=== PATIENT | female | born 1995 | race Caucasian/White ===

== ENCOUNTER 2020-11-02 09:53 | Outpatient (CLI) | payer OTHER, SELFPAY ==
--- NOTE | ~2020-11-02 | US_ITS ---
US pelvic complete w TV DATE: 11/02/2020 10:29 INDICATION: Menometrorrhagia. Irregular periods. Bloating, cramping. TECHNIQUE: Real-time imaging via transabdominal and transvaginal approaches COMPARISON: None FINDINGS: The uterus measures 8.0 cm height, 3.4 cm anteroposterior and 3.9 cm transverse dimension. The central endometrial echo complex measures approximately 4.3 mm anteroposterior dimension, normal. No ovarian or adnexal mass lesion or abnormal pelvic fluid collection is evident. There is vascular f low to both ovaries. IMPRESSION: No significant abnormality Reviewed, dictated and finalized at [facility]. Reviewed, dictated and finalized at [facility]. DING CLERK IMPRESSION: No significant abnormality
== END 2020-11-02 09:54 | disposition home or self-care (01) ==
PROVIDERS: PCP Physician Assistant; Visit Provider Physician Assistant
DX: N92.1 Excessive and frequent menstruation with irregular cycle (principal)
CPT/HCPCS: 76830; 76856

== ENCOUNTER 2021-01-26 11:46 | Emergency (ER) | payer OTHER, SELFPAY ==
[2021-01-26 12:05] VITALS: BP 131/88; PULSE 93; RESP 17; TEMP 37; O2SAT 99
--- NOTE | 2021-01-26 12:15 | ECG_ITS ---
Measurements Intervals [place] Rate: 78 P: 6 UT: 146 QRS: 78 QRSD: 81 T: 36 QT: 374 QTc: 428 Interpretive Statements SINUS RHYTHM NORMAL ECG Electronically Signed On 01-26-2021 12:54:24 CDT by Jan Burgos D.O.
[2021-01-26] MEDS: ONDANSETRON INJ 4 MG/2 ML VIAL IV PUSH (12:20)
[2021-01-26] MEDS: SODIUM CHLORIDE 0.9% IV 1,000 ML 999 ML IV CONT (12:20)
[2021-01-26 12:29] LABS: Add Urine Microscopic? YES; Appearance Urine Sl Cloudy (Clear); Bilirubin Urine Negative (Negative); Blood Urine Negative (Negative); Color Urine Yellow (Yellow); Glucose Urine UA Negative (Negative); Ketones Urine Negative (Negative); Leukocyte Esterase Ur 1+ (Negative); Nitrate Urine Negative (Negative); Protein Urine Negative (Negative); Specific Grav Ur >= 1.030 (1.010-1.020); Urobilinogen Urine 0.2 mg/dL (0.2-1.0); pH Urine 5.5 (5.0-8.0)
[2021-01-26 12:36] LABS: RBC Urine 0-2 /hpf (0-2); Squamous Epithelial Cell Urine Moderate /hpf (Few)
[2021-01-26 12:36] LABS: Basophils Absolute Auto 0.02 K/mm3 (0.00-0.10); Basophils Percent Auto 0.3 % (0.0-1.0); Eosinophils Absolute Auto 0.06 K/mm3 (0.02-0.50); Eosinophils Percent Auto 0.9 % (1.0-6.0); Hematocrit 35.2 % (35.0-49.0); Immature Granulocyte Absolute 0.02 K/mm3 (0.00-0.00); Immature Granulocyte Percent A 0.3 % (0.0-0.0); Lymphocytes Absolute Auto 1.44 K/mm3 (1.10-4.50); Lymphocytes Percent Auto 20.9 % (18.0-42.0); Mean Corpuscular HGB Conc 34.1 g/dL (32.0-36.0); Mean Corpuscular Hemoglobin 29.7 pg (27.0-31.0); Mean Corpuscular Volume 87.1 fL (78.0-102.0); Mean Platelet Volume 11.4 fl (9.2-11.8); Monocytes Absolute Auto 0.46 K/mm3 (0.10-0.90); Monocytes Percent Auto 6.7 % (2.0-11.0); Neutrophils Absolute Auto 4.9 K/mm3 (1.7-7.2); Neutrophils Percent Auto 70.9 % (50.0-70.0); Platelet Count Result 186 K/mm3 (150-420); Red Blood Count 4.04 M/mm3 (4.20-5.40); Red Cell Distribution Width 11.9 % (11.6-14.4); White Blood Count 6.9 K/mm3 (4.8-10.8)
[2021-01-26 12:37] LABS: Bacteria Urine 1+ /hpf
--- NOTE | 2021-01-26 12:48 | ED.NAVMDI ---
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 Patient here presents with nausea, currently no dysuria no flank pain no hematuria no fever chills no excessive shortness of breath no chest pain or chest tightness. MD elicited complaint: nausea Onset (ago): week(s) Description of vomiting: watery Associated nausea: Yes Associated abdominal pain: No Quality: cramping Exacerbating factors: none Relieving factors: none Related Data Home Medications Medication Instructions Recorded Confirmed ondansetron HCl 4 mg PO DAILY PRN 01/26/21 01/26/21 vit [id number] 1 tablet PO DAILY 01/26/21 01/26/21 [Classic ] Allergies Allergy/AdvReac Type Severity Reaction Status Date / Time levofloxacin [From Levaquin] Allergy Hives Verified 01/26/21 12:14 Penicillins Allergy Hives Verified 01/26/21 12:14 Review of Systems Review of Systems: All systems reviewed & are unremarkable except as noted in HPI and below PMFSH Past Medical History Medical History Exam Const: General: no acute distress and alert Orientation/consciousness: patient oriented x3 HENMT: Head: normal to inspection Eyes: Pupils: Equal, round and reactive pupils present EOM: EOMs intact bilaterally Direct Ophthalmoscopy: no photophobia Neck: Neck: normal visual inspection, no lymphadenopathy and no meningeal signs Chest: Chest palpation & inspection: normal inspection of the chest Resp: Effort & Inspection: normal respiratory effort Auscultation: clear to auscultation bilaterally GI: GI Palp: Yes Soft to palpation : General: Yes no CVA tenderness Back/Spine/Pelvis: Back: no CVA tenderness Skin: General skin exam: normal color Rashes: no rashes Neuro: General: patient oriented x3, moves all extremities and no meningeal signs Psych: Mental Status: mental status grossly normal Course Course Emergency Course: patient received IV fluids and IV Zofran is more comfortable, I reviewed lab findings including EKG and urinalysis, and urine showed a urinary tract infection advised we sending an antibiotic to her pharmacy. Vital Signs Vital signs: Vital Signs Temperature 37.0 C 01/26/21 12:05 Pulse Rate 93 01/26/21 12:05 Respiratory Rate 17 01/26/21 12:05 Blood Pressure 131/88 01/26/21 12:05 Pulse Oximetry 99 01/26/21 12:05 Temperature 37.0 C 01/26/21 12:05 Pulse Rate 93 01/26/21 12:05 Respiratory Rate 17 01/26/21 12:05 Blood Pressure 131/88 01/26/21 12:05 Pulse Oximetry 99 01/26/21 12:05 MDM - Nausea/Vomiting/Diarrhea Lab Data Result diagrams: 01/26/21 12:30 01/26/21 12:30 Labs: Lab Results 01/26/21 01/26/21 01/26/21 Range/Units 12:15 12:30 12:30 WBC 6.9 (4.8-10.8) K/mm3 RBC 4.04 L (4.20-5.40) M/mm3 Hgb 12.0 (12.0-15.0) g/dL Hct 35.2 (35.0-49.0) % MCV 87.1 (78.0-102.0) fL MCH 29.7 (27.0-31.0) pg MCHC 34.1 (32.0-36.0) g/dL RDW 11.9 (11.6-14.4) % Plt Count 186 (150-420) K/mm3 MPV 11.4 (9.2-11.8) fl Immature Gran % (Auto) 0.3 H (0.0-0.0) % Neut % (Auto) 70.9 H (50.0-70.0) % Lymph % (Auto) 20.9 (18.0-42.0) % [place] % (Auto) 6.7 (2.0-11.0) % Eos % (Auto) 0.9 L (1.0-6.0) % Baso % (Auto) 0.3 (0.0-1.0) % Lymph # (Auto) 1.44 (1.10-4.50) K/mm3 [place] # (Auto) 0.46 (0.10-0.90) K/mm3 Eos # (Auto) 0.06 (0.02-0.50) K/mm3 Baso # (Auto) 0.02 (0.00-0
[2021-01-26 12:51] LABS: Alanine Aminotransferase 25 U/L (14-59); Albumin Level 3.2 g/dL (3.4-5.0); Alkaline Phosphatase 42 U/L (46-116); Anion Gap 9 mmol/L (8-16); Aspartate Amino Transferase < 10 U/L (15-37); Bilirubin,Total 0.5 mg/dL (0.00-1.00); Blood Urea Nitrogen 10 mg/dL (7-18); Calcium 8.6 mg/dL (8.5-10.1); Carbon Dioxide 25 mmol/L (21-32); Chloride 104 mmol/L (98-108); Estimated Glomerular Filt Rate > 60; Glucose 97 mg/dL (70-99); Osmolality Calculated 285 mOsm/kg (285-295); Potassium 3.4 mmol/L (3.5-5.1); Sodium 138 mmol/L (136-145); Total Protein 6.2 g/dL (6.4-8.2)
[2021-01-26 13:13] VITALS: RESP 16
== END 2021-01-26 13:15 | disposition home or self-care (01) ==
PROVIDERS: Emergency Provider Emergency Medicine; PCP Physician Assistant
DX: Z3A.12 12 weeks gestation of pregnancy (principal); N39.0 Urinary tract infection, site not specified; R11.2 Nausea with vomiting, unspecified
CPT/HCPCS: 36415; 80053; 81001; 85025; 93005; 96361; 96374; 99283; 99284; J2405; J7030

== ENCOUNTER 2021-01-31 11:27 | Emergency (ER) | payer SELFPAY ==
--- NOTE | 2021-01-31 12:06 | ED.NAVMDI ---
HPI - Nausea/Vomiting/Diarrhea General Chief complaint: Nausea/Vomiting/Diarrhea Stated complaint: vomiting Source: patient and RN notes reviewed Mode of arrival: ambulatory Limitations: no limitations History of Present Illness MD elicited complaint: nausea and vomiting Pertinent past history: other (12 wks ) Onset (ago): day(s) (3) Description of vomiting: food contents Associated nausea: Yes Associated abdominal pain: No Severity: moderate Exacerbating factors: eating Relieving factors: none Associated symptoms: weakness Treatment prior to arrival: none ( Reglan and Zofran) Related Data Home Medications Medication Instructions Recorded Confirmed ondansetron HCl 4 mg PO DAILY PRN 01/26/21 01/31/21 vit [id number] 1 tablet PO DAILY 01/26/21 01/31/21 [Classic ] metoclopramide HCl [Reglan] 10 mg PO Q6H PRN 01/31/21 01/31/21 Allergies Allergy/AdvReac Type Severity Reaction Status Date / Time levofloxacin [From Levaquin] Allergy Hives Verified 01/31/21 12:39 Penicillins Allergy Hives Verified 01/31/21 12:39 Review of Systems Review of Systems: All systems reviewed & are unremarkable except as noted in HPI and below PMFSH Past Medical History Medical History (Updated 01/31/21 @ 13:46 by Servando Garcia MD) Surgical History Surgical History (Updated 01/31/21 @ 12:39 by Servando Garcia MD) Hx of cholecystectomy Hx of tonsillectomy Social History Social History (Updated 01/31/21 @ 12:39 by Servando Garcia MD) Smoking status: Never smoker Alcohol intake: current Alcohol use details: occasional when not Substance use: never Gender identity (if verbalized by the patient): Female Exam Const: General: healthy appearing and no acute distress Nutritional Appearance: well nourished Orientation/consciousness: patient oriented x3 Other: female nurse in room during examination. HENMT: Head: normal to inspection Ears: external ears normal Eyes: Cornea: corneas normal Pupils: Equal, round and reactive pupils present EOM: EOMs intact bilaterally Neck: Neck: normal visual inspection Resp: Effort & Inspection: normal respiratory effort Auscultation: clear to auscultation bilaterally Cardio: Rate: regular rate Rhythm: regular rhythm GI: GI Palp: Yes Soft to palpation and No Tenderness to palpation present (GI) Auscultation: normal bowel sounds Back/Spine/Pelvis: Cervical Spine: cervical ROM normal Thoracic/Lumbar Spine: thoraco-lumbar ROM normal Skin: General skin exam: normal color Rashes: no rashes Wounds: no wounds Neuro: General: patient oriented x3, moves all extremities, no meningeal signs and no focal motor deficits Speech: normal speech Gait exam (Neuro): Normal gait present Extrem: General: normal to inspection and no clubbing, cyanosis or edema Psych: Appearance: grossly normal and well kempt Mental Status: mental status grossly normal Affect: normal affect Attitude: cooperative Thought content: Yes Normal thought content present Course Vital Signs Vital signs: Vital Signs Temperature 36.8 C 01/31/21 12:30 Pulse Rate 81 01/31/21 12:30 Respiratory Rate 20 01/31/21 12:30 Blood Pressure 131/81 01/31/21 12:30 Pulse Oximetry 100 01/31/21 12:30 Temperature 36.7 C 01/31/21 14:11 Pulse Rate 86 01/31/21 14:11 Respiratory Rate 20 01/31/21 14:11 Blood Pressure 114/71 01/31/21 14:11 Pulse Oximetry 98 01/31/21 14:11 MDM - Nausea/Vomiting/Diarrhea Medical Records Attestation: I reviewed the patient's medical records. Lab Data Attestation: I reviewed the patient's lab results. Result diagrams: 01/31/21 12:41 01/31/21 12:41 Labs: Lab Results 01/31/21 01/31/21 01/31/21 Range/Units 12:07 12:41 12:41 WBC 6.0 (4.8-10.8) K/mm3 RBC 4.11 L (4.20-5.40) M/mm3 Hgb 12.2 (12.0-15.0) g/dL Hct 35.8 (35.0-49.0) % MCV 87.1 (78.0-102
[2021-01-31] MEDS: LACTATED RINGERS 1,000 ML 999 ML IV CONT (12:15)
[2021-01-31 12:30] VITALS: BP 131/81; PULSE 81; RESP 20; TEMP 36.8; O2SAT 100
[2021-01-31 12:31] LABS: Bilirubin Urine Negative (Negative); Blood Urine Negative (Negative); Color Urine Yellow (Yellow); Glucose Urine UA Negative (Negative); Ketones Urine Negative (Negative); Leukocyte Esterase Ur Negative LEU/UL (Negative); Nitrate Urine Negative (Negative); Protein Urine Negative (Negative); Urobilinogen Urine 0.2 mg/dL (0.2-1.0); pH Urine 7.5 (5.0-8.0)
[2021-01-31 12:35] LABS: Add Urine Microscopic? NO; Appearance Urine Clear (Clear)
[2021-01-31 12:47] LABS: Basophils Absolute Auto 0.02 K/mm3 (0.00-0.10); Basophils Percent Auto 0.3 % (0.0-1.0); Eosinophils Absolute Auto 0.04 K/mm3 (0.02-0.50); Eosinophils Percent Auto 0.7 % (1.0-6.0); Hematocrit 35.8 % (35.0-49.0); Hemoglobin 12.2 g/dL (12.0-15.0); Immature Granulocyte Absolute 0.02 K/mm3 (0.00-0.00); Immature Granulocyte Percent A 0.3 % (0.0-0.0); Lymphocytes Absolute Auto 1.35 K/mm3 (1.10-4.50); Lymphocytes Percent Auto 22.7 % (18.0-42.0); Mean Corpuscular HGB Conc 34.1 g/dL (32.0-36.0); Mean Corpuscular Hemoglobin 29.7 pg (27.0-31.0); Mean Corpuscular Volume 87.1 fL (78.0-102.0); Mean Platelet Volume 11.3 fl (9.2-11.8); Monocytes Absolute Auto 0.44 K/mm3 (0.10-0.90); Monocytes Percent Auto 7.4 % (2.0-11.0); Neutrophils Absolute Auto 4.1 K/mm3 (1.7-7.2); Neutrophils Percent Auto 68.6 % (50.0-70.0); Platelet Count Result 168 K/mm3 (150-420); Red Blood Count 4.11 M/mm3 (4.20-5.40)
[2021-01-31 12:53] LABS: Anion Gap 9 mmol/L (8-16); Blood Urea Nitrogen 9 mg/dL (7-18); Calcium 8.6 mg/dL (8.5-10.1); Carbon Dioxide 25 mmol/L (21-32); Chloride 102 mmol/L (98-108); Estimated CRCL calculation 150 ml/min; Estimated Glomerular Filt Rate > 60; Glucose 90 mg/dL (70-99); Osmolality Calculated 280 mOsm/kg (285-295); Potassium 3.4 mmol/L (3.5-5.1); Sodium 136 mmol/L (136-145)
[2021-01-31] MEDS: PROMETHAZINE HCL 25 MG/ML AMPUL IM (14:00)
[2021-01-31 14:11] VITALS: BP 114/71; PULSE 86; RESP 20; TEMP 36.7; O2SAT 98
== END 2021-01-31 14:25 | disposition home or self-care (01) ==
PROVIDERS: Emergency Provider Emergency Medicine; PCP Physician Assistant
DX: O21.0 Mild hyperemesis gravidarum (principal); Z3A.12 12 weeks gestation of pregnancy
CPT/HCPCS: 36415; 80048; 81003; 85025; 96360; 96372; 99283; J2550; J7120

== ENCOUNTER 2021-05-04 12:36 | Outpatient (RCR) | payer SELFPAY ==
[2021-05-04 14:22] VITALS: BP 121/73; PULSE 97
== END 2021-08-02 23:59 | disposition home or self-care (01) ==
LOC: ANHOBOP 12:36
PROVIDERS: PCP Physician Assistant; Visit Provider Obstetrics & Gynecology
DX: O36.8120 Decreased fetal movements, second trimester, not applicable or unspecified (principal); Z3A.25 25 weeks gestation of pregnancy
CPT/HCPCS: 59025

== ENCOUNTER 2021-06-15 11:56 | Outpatient (RCR) | payer OTHER, SELFPAY ==
[2021-05-24 00:10] VITALS: BP 122/79; PULSE 101
[2021-05-24 00:16] VITALS: BP 122/73; PULSE 101
[2021-05-24 01:33] VITALS: BP 122/79; PULSE 101
[2021-06-15 12:40] VITALS: PULSE 111
== END 2021-08-21 09:27 | disposition home or self-care (01) ==
LOC: ANHOBOP 11:56
PROVIDERS: PCP Physician Assistant; Visit Provider Obstetrics & Gynecology
DX: O36.8130 Decreased fetal movements, third trimester, not applicable or unspecified (principal); Z3A.28 28 weeks gestation of pregnancy; O46.93 Antepartum hemorrhage, unspecified, third trimester; Z3A.31 31 weeks gestation of pregnancy
CPT/HCPCS: 59025

== ENCOUNTER 2021-06-30 22:55 | Observation (INO) | payer OTHER, SELFPAY ==
[2021-06-30 23:10] VITALS: BMI 34.8
--- NOTE | 2021-06-30 23:11 | OBADM ---
This patient, Amy Yarbrough, admitted to the OB room [facility] for observation. Patient/family oriented to hospital policies and general routines including ID bracelet, bed and alarms, visiting hours, pain management, procedures, bathroom and other care routines, personal items, smoking policy, room service/diet, and visiting hours. Patient/Family are encouraged to report perceived risks to care and to ask questions if they do not understand what they are told or what they should do.
[2021-06-30 23:19] VITALS: BP 136/81; PULSE 111; TEMP 36.8
[2021-06-30 23:30] VITALS: BP 135/86; PULSE 103
[2021-06-30 23:46] VITALS: BP 96/80; PULSE 102
[2021-07-01] VITALS: BP 124/87; PULSE 92
--- NOTE | 2021-07-04 08:05 | PM.OBTRLD ---
OB - Triage/Final Diagnosis Visit Information Date of evaluation: 06/30/21 Reason for evaluation: decreased movement Comments/Additional reasons for admission: I have assessed the risk for this patient, Amy Castillo Zenon, and determined that she would benefit from observation care.
== END 2021-07-01 00:15 | disposition home or self-care (01) ==
PROVIDERS: Admitting Provider Student in an Organized Health Care Education/Training Program; PCP Physician Assistant; Visit Provider Student in an Organized Health Care Education/Training Program
DX: O36.8130 Decreased fetal movements, third trimester, not applicable or unspecified (principal); Z3A.33 33 weeks gestation of pregnancy
CPT/HCPCS: G0378; G0379

== ENCOUNTER 2021-07-10 17:26 | Outpatient (CLI) | payer OTHER, SELFPAY ==
[2021-07-10 17:44] VITALS: BP 120/79; PULSE 104
[2021-07-10 18:15] LABS: Alanine Aminotransferase 16 U/L (4-35); Albumin Level 3.9 g/dL (3.5-5.1); Alkaline Phosphatase 119 U/L (38-126); Anion Gap 8 mmol/L (8-16); Aspartate Amino Transferase 16 U/L (14-36); Basophils Percent Auto 0.2 % (0.2-1.2); Bilirubin,Total 0.5 mg/dL (0.2-1.3); Blood Urea Nitrogen 7 mg/dL (7-17); Calcium 9.3 mg/dL (8.4-10.2); Carbon Dioxide 19 mmol/L (22-30); Chloride 109 mmol/L (98-107); Eosinophils Percent Auto 0.3 % (0-4.4); Estimated Glomerular Filt Rate > 60; Glucose 92 mg/dL (65-110); Hematocrit 35.3 % (37.0-47.0); Hemoglobin 11.9 g/dL (12.0-15.0); Immature Granulocyte Absolute 0.05 K/mm3 (0.00-0.031); Immature Granulocyte Percent A 0.5 % (0-0.5); Lymphocytes Percent Auto 13.3 % (18.3-44.2); Mean Corpuscular HGB Conc 33.7 g/dl (32-36); Mean Corpuscular Hemoglobin 29.9 pg (26-34); Mean Corpuscular Volume 88.7 fl (80-100); Mean Platelet Volume 11.9 fl (7.4-10.4); Monocytes Absolute Auto 0.6 K/mm3 (0.1-0.6); Monocytes Percent Auto 6.5 % (2.6-8.5); Neutrophils Absolute Auto 7.8 K/mm3 (1.3-6.7); Neutrophils Percent Auto 79.2 % (45.5-73.1); Platelet Count Result 181 k/mm3 (150-375); Potassium 3.9 mmol/L (3.4-5.0); Red Blood Count 3.98 M/mm3 (4.2-5.4); Red Cell Distribution Width 13.1 % (11.5-14.5); Sodium 136 mmol/L (137-145); Uric Acid 4.6 mg/dL (2.5-7.5); White Blood Count 9.8 K/mm3 (4.5-10.0)
[2021-07-10 18:32] VITALS: BP 124/86; PULSE 100
[2021-07-10 18:45] VITALS: BP 117/100; PULSE 85
[2021-07-10 18:53] VITALS: BP 130/85; PULSE 99
[2021-07-10 19:01] VITALS: BP 120/75; PULSE 100
== END 2021-07-10 19:11 | disposition home or self-care (01) ==
LOC: ANHOBOP 17:37 → ANHLDR 17:37
PROVIDERS: PCP Physician Assistant; Visit Provider Obstetrics & Gynecology
DX: O13.9 Gestational [pregnancy-induced] hypertension without significant proteinuria, unspecified trimester (principal); Z3A.00 Weeks of gestation of pregnancy not specified
CPT/HCPCS: 36415; 59025; 80053; 84550; 85025; 99199

== ENCOUNTER 2021-07-12 20:29 | Observation (INO) | payer OTHER, SELFPAY ==
[2021-07-12 20:49] VITALS: BP 132/80; PULSE 115
[2021-07-12 20:57] VITALS: RESP 18; TEMP 36.8
[2021-07-12 21:00] VITALS: BP 143/88; PULSE 112
[2021-07-12 21:08] VITALS: BMI 37.1
[2021-07-12 21:48] LABS: Add Urine Microscopic? YES; Appearance Urine Clear (Clear); Bacteria Urine Trace /hpf; Bilirubin Urine Negative (Negative); Blood Urine Negative (Negative); Calcium Oxalate Crystals Urine Present /hpf; Color Urine Yellow (Yellow); Glucose Urine UA Negative (Negative); Ketones Urine Negative (Negative); Leukocyte Esterase Ur 1+ LEU/UL (Negative); Mucus Urine Few /lpf; Nitrate Urine Negative (Negative); Protein Urine Negative (Negative); Squamous Epithelial Cell Urine Many /hpf (Few); Urobilinogen Urine Negative mg/dL (<2.0)
--- NOTE | 2021-07-21 10:04 | PM.OBTRLD ---
OB - Triage/Final Diagnosis Visit Information Reason for evaluation: threatened labor Comments/Additional reasons for admission: I have assessed the risk for this patient, Amy Yarbrough, and determined that she would benefit from observation care. Evaluation Laboratory results: Laboratory Tests 07/12/21 21:30 Urine Color Yellow Urine Appearance Clear Urine pH 5.0 Ur Specific [place] 1.020 Urine Protein Negative Urine Glucose (UA) Negative Urine Ketones Negative Ur Blood (Man) Negative Urine Nitrate Negative Urine Bilirubin Negative Urine Urobilinogen Negative Leukocyte Esterase Rfl 1+ H Urine RBC 11-20 H Urine WBC 10-15 H Ur Squamous Epith Cells Many H Calcium Oxalate Crystal Present Urine Bacteria Trace Urine Mucus Few H
== END 2021-07-12 21:59 | disposition home or self-care (01) ==
PROVIDERS: Admitting Provider Obstetrics & Gynecology; PCP Physician Assistant; Visit Provider Obstetrics & Gynecology
DX: O47.03 False labor before 37 completed weeks of gestation, third trimester (principal); Z3A.35 35 weeks gestation of pregnancy
CPT/HCPCS: 59025; 81001; 84112; 87086; G0378; G0379

== ENCOUNTER 2021-07-15 12:58 | Outpatient (CLI) | payer OTHER, SELFPAY ==
[2021-07-15 13:09] LABS: Collection Time Urine 24 HOURS
[2021-07-15 13:30] LABS: Total Volume 24 Hour Urine 1750 ml
[2021-07-15 13:31] LABS: Patient Weight 135 Lbs
[2021-07-15 14:21] LABS: Creatinine Clearance Urine 265.6 ml/min (75-125); Creatinine Urine 84.3 mg/dL
[2021-07-15 15:27] LABS: Total Protein Urine 24 Hr 87 mg/24hr (28-141); Total Protein Urine Random < 5 mg/dL
== END 2021-07-15 12:59 | disposition home or self-care (01) ==
PROVIDERS: PCP Physician Assistant; Visit Provider Obstetrics & Gynecology
DX: R03.0 Elevated blood-pressure reading, without diagnosis of hypertension (principal)
CPT/HCPCS: 81050; 82575; 84156

== ENCOUNTER 2021-07-23 17:07 | Outpatient (CLI) | payer OTHER, SELFPAY ==
[2021-07-23] VITALS (19 sets, daily range): BP systolic 126–141; BP diastolic 76–95; PULSE 94–117
[2021-07-23 17:55] LABS: Basophils Percent Auto 0.2 % (0.2-1.2); Eosinophils Percent Auto 0.5 % (0-4.4); Hemoglobin 11.8 g/dL (12.0-15.0); Immature Granulocyte Absolute 0.04 K/mm3 (0.00-0.031); Immature Granulocyte Percent A 0.5 % (0-0.5); Lymphocytes Absolute Auto 1.25 K/mm3 (0.9-3.2); Lymphocytes Percent Auto 14.5 % (18.3-44.2); Mean Corpuscular HGB Conc 33.7 g/dl (32-36); Mean Corpuscular Volume 89.1 fl (80-100); Monocytes Absolute Auto 0.7 K/mm3 (0.1-0.6); Monocytes Percent Auto 8.5 % (2.6-8.5); Neutrophils Absolute Auto 6.5 K/mm3 (1.3-6.7); Neutrophils Percent Auto 75.8 % (45.5-73.1); Platelet Count Result 177 k/mm3 (150-375); Red Blood Count 3.93 M/mm3 (4.2-5.4); Red Cell Distribution Width 13.1 % (11.5-14.5); White Blood Count 8.6 K/mm3 (4.5-10.0)
[2021-07-23 18:00] LABS: Add Urine Microscopic? YES; Appearance Urine Clear (Clear); Bacteria Urine Trace /hpf; Bilirubin Urine Negative (Negative); Blood Urine Negative (Negative); Color Urine Yellow (Yellow); Glucose Urine UA 1+ mg/dL (Negative); Ketones Urine Negative (Negative); Leukocyte Esterase Ur 1+ LEU/UL (NEGATIVE); Mucus Urine Rare /lpf; Nitrate Urine Negative (Negative); Protein Urine 1+ mg/dL (Negative); Specific Grav Ur 1.017 (1.001-1.035); Squamous Epithelial Cell Urine Moderate /hpf (Few); Urobilinogen Urine Negative mg/dL (<2.0)
[2021-07-23 18:04] LABS: Alanine Aminotransferase 13 U/L (4-35); Albumin Level 3.7 g/dL (3.5-5.1); Alkaline Phosphatase 121 U/L (38-126); Anion Gap 10 mmol/L (8-16); Aspartate Amino Transferase 15 U/L (14-36); Bilirubin,Total 0.5 mg/dL (0.2-1.3); Blood Urea Nitrogen 7 mg/dL (7-17); Calcium 8.6 mg/dL (8.4-10.2); Carbon Dioxide 19 mmol/L (22-30); Chloride 109 mmol/L (98-107); Estimated Glomerular Filt Rate > 60; Glucose 108 mg/dL (65-110); Potassium 3.9 mmol/L (3.4-5.0); Sodium 138 mmol/L (137-145); Uric Acid 4.5 mg/dL (2.5-7.5)
[2021-07-23 18:22] LABS: Creatinine Urine 105.5 mg/dL; Total Protein Urine Random 6 mg/dL; Ur Ttl Prot Creatinine Ratio 0.06 mg/mg (0-0.20)
--- NOTE | 2021-07-23 23:54 | PC.NURSE ---
1904- paged Dr. Collier- 1913- Dr. Collier responded to page. informed of pt admission. pt came in c/o HORTON, DFM, and elevated BP's at home. BP's reviewed. HORTON-rated 6/10 on pain scale. FHT reveiwed. orders received for fiorocet 2 tabs x1 and have the pt eat dinner. will continue to monitor and call if questions/concerns.
--- NOTE | 2021-07-24 00:09 | PC.NURSE ---
2100- pt states that her headache is no better after fiorocet. pt was able to eat dinner.
--- NOTE | 2021-07-24 00:10 | PC.NURSE ---
2132- pt states that her headache pain is 7/10. c/o pain behind both eyes. pt with hx of migraines. uses icy hot at home.
--- NOTE | 2021-07-24 00:11 | PC.NURSE ---
2134- Dr. Collier paged. 2139- Dr. Collier responded to page.- updated on pt status. pt now c/o 7/10 pain more behind her eyes with pressure in her head. she states that the fiorocet hasn't helped at all. pt is laughing and smiling and talking to mom and playing on phone. pt with a hx of migraines. FHT reviewed. no concerns. ok to d/c home with instructions on when to return to L&D. recommend tylenol 1000mg every 6 hours for headache. alternate heat and ice. pt may use icy hot if needed. pt to keep appt in office.
== END 2021-07-23 22:01 | disposition home or self-care (01) ==
LOC: ANHOBOP 17:18 → ANHOBPP 17:19
PROVIDERS: PCP Physician Assistant; Visit Provider Obstetrics & Gynecology
DX: O13.9 Gestational [pregnancy-induced] hypertension without significant proteinuria, unspecified trimester (principal); Z3A.00 Weeks of gestation of pregnancy not specified
CPT/HCPCS: 36415; 80053; 81001; 82570; 84156; 84550; 85025; 87086; 87088; 99199; A9270

== ENCOUNTER 2021-07-25 15:52 | Inpatient (IN) | payer OTHER, MEDICAID, SELFPAY ==
[2021-07-25] VITALS (14 sets, daily range): BP systolic 114–150; BP diastolic 71–94; PULSE 104–118; RESP 18; TEMP 36.9; BMI 37.2
--- NOTE | 2021-07-25 16:51 | LDADM ---
This patient, Amy Yarbrough, was admitted to Labor/Delivery/Recovery 109 on 07/25/21 at 15:52. Plans for labor, pain management and were discussed with patient. Patient is oriented to hospital policies and general routines including ID bracelet, bed and alarms, visiting hours, pain management, procedures, bathroom and other care routines, personal items, smoking policy, room service/diet and guest tray routines, infant security routines, call light and visiting hours. Patient is encouraged to report perceived risks to care and to ask questions if she does not understand what she is told or what she should do. See OBIX for further documentation.
[2021-07-25 17:35] LABS: Basophils Percent Auto 0.2 % (0.2-1.2); Eosinophils Percent Auto 0.4 % (0-4.4); Hematocrit 36.5 % (37.0-47.0); Hemoglobin 12.4 g/dL (12.0-15.0); Immature Granulocyte Absolute 0.05 K/mm3 (0.00-0.031); Immature Granulocyte Percent A 0.5 % (0-0.5); Lymphocytes Absolute Auto 1.58 K/mm3 (0.9-3.2); Lymphocytes Percent Auto 15.4 % (18.3-44.2); Mean Corpuscular Hemoglobin 29.5 pg (26-34); Mean Corpuscular Volume 86.9 fl (80-100); Mean Platelet Volume 12.2 fl (7.4-10.4); Monocytes Absolute Auto 0.7 K/mm3 (0.1-0.6); Monocytes Percent Auto 7.2 % (2.6-8.5); Neutrophils Absolute Auto 7.8 K/mm3 (1.3-6.7); Neutrophils Percent Auto 76.3 % (45.5-73.1); Platelet Count Result 205 k/mm3 (150-375); Red Cell Distribution Width 13.1 % (11.5-14.5); White Blood Count 10.2 K/mm3 (4.5-10.0)
[2021-07-25 17:57] LABS: Alanine Aminotransferase 16 U/L (4-35); Albumin Level 3.9 g/dL (3.5-5.1); Alkaline Phosphatase 144 U/L (38-126); Anion Gap 10 mmol/L (8-16); Aspartate Amino Transferase 19 U/L (14-36); Bilirubin,Total 0.7 mg/dL (0.2-1.3); Blood Urea Nitrogen 6 mg/dL (7-17); Calcium 9.6 mg/dL (8.4-10.2); Carbon Dioxide 22 mmol/L (22-30); Chloride 105 mmol/L (98-107); Estimated CRCL calculation 193 ml/min; Estimated Glomerular Filt Rate > 60; Glucose 85 mg/dL (65-110); Potassium 4.4 mmol/L (3.4-5.0); Sodium 137 mmol/L (137-145); Uric Acid 4.8 mg/dL (2.5-7.5)
[2021-07-25] MEDS: DINOPROSTONE 10 MG VAG INSERT VAGINAL (20:03)
[2021-07-25] MEDS: LACTATED RINGERS 1,000 ML 125 ML IV CONT (20:09)
[2021-07-25] MEDS: ceFAZolin 2 GM/D5W 50 ML 2 GM/50 ML BAG IVPB (20:09)
[2021-07-25] MEDS: ACETAMINOPHEN 500 MG TABLET 1000 MG PO (20:30)
[2021-07-26] VITALS (152 sets, daily range): BP systolic 102–163; BP diastolic 59–100; PULSE 77–171; RESP 18; TEMP 36.3–37.6; O2SAT 95–100
[2021-07-26] MEDS: fentaNYL CITRATE INJ (*CRX) 100 MCG/2 ML VIAL 50 MCG IV PUSH ×4 (00:15→10:52)
--- NOTE | 2021-07-26 04:32 | WPDANESEPP ---
Anes - Eval Pre Procedure Procedure: labor epidural Date/Time: 07/26/21 04:32 Surgeon: jose luis Pre Op Diagnosis: PIH Labs/ IOL? Patient Data Age: 26 Gender: F Height: 1.63 m Weight: 98.3 kg Last Vital Signs Temp 36.8 C 07/26/21 01:19 Pulse 110 H 07/26/21 04:01 Resp 18 07/25/21 22:09 BP 144/91 H 07/26/21 04:01 Allergies Allergy/AdvReac Type Severity Reaction Status Date / Time levofloxacin [From Levaquin] Allergy Hives Verified 07/25/21 16:44 Penicillins Allergy Hives Verified 07/25/21 16:44 hydrocodone AdvReac Dizziness Verified 07/25/21 16:44 Home Medications Medication Instructions Recorded Confirmed Type Classic 1 tablet PO DAILY 01/26/21 07/25/21 History ondansetron HCl 4 mg PO DAILY PRN 01/26/21 07/25/21 History sertraline [Zoloft] 25 mg PO DAILY 07/17/21 07/25/21 History Laboratory Tests 07/25/21 07/25/21 07/25/21 17:25 17:25 18:28 WBC 10.2 K/mm3 H K/mm3 (4.5-10.0) RBC 4.20 M/mm3 M/mm3 (4.2-5.4) Hgb 12.4 g/dL g/dL (12.0-15.0) Hct 36.5 % L % (37.0-47.0) MCV 86.9 fl fl (80-100) MCH 29.5 pg pg (26-34) MCHC 34.0 g/dl g/dl (32-36) RDW 13.1 % % (11.5-14.5) Plt Count 205 k/mm3 k/mm3 (150-375) MPV 12.2 fl H fl (7.4-10.4) Immature Gran % (Auto) 0.5 % % (0-0.5) Neut % (Auto) 76.3 % H % (45.5-73.1) Lymph % (Auto) 15.4 % L % (18.3-44.2) [place] % (Auto) 7.2 % % (2.6-8.5) Eos % (Auto) 0.4 % % (0-4.4) Baso % (Auto) 0.2 % % (0.2-1.2) Lymph # (Auto) 1.58 K/mm3 K/mm3 (0.9-3.2) [place] # (Auto) 0.7 K/mm3 H K/mm3 (0.1-0.6) Eos # (Auto) 0.0 K/mm3 K/mm3 (0-0.3) Baso # (Auto) 0.0 K/mm3 K/mm3 (0.0-0.1) Abs Immat Gran (auto) 0.05 K/mm3 H K/mm3 (0.00-0.031) Absolute Neuts (auto) 7.8 K/mm3 H K/mm3 (1.3-6.7) Absolute Nucleated RBC 0.0 K/mm3 K/mm3 (0.0-0.012) Nucleated RBC % 0.0 % % (0.0-0.2) Sodium 137 mmol/L mmol/L (137-145) Potassium 4.4 mmol/L mmol/L (3.4-5.0) Chloride 105 mmol/L mmol/L (98-107) Carbon Dioxide 22 mmol/L mmol/L (22-30) Anion Gap 10 mmol/L mmol/L (8-16) BUN 6 mg/dL L mg/dL (7-17) Creatinine 0.40 mg/dL L mg/dL (0.7-1.0) Estim Creat Clear Calc 193 ml/min ml/min Estimated GFR > 60 (59 - ) Glucose 85 mg/dL mg/dL (65-110) Uric Acid 4.8 mg/dL mg/dL (2.5-7.5) Calcium 9.6 mg/dL mg/dL (8.4-10.2) Total Bilirubin 0.7 mg/dL mg/dL (0.2-1.3) AST 19 U/L U/L (14-36) ALT 16 U/L U/L (4-35) Alkaline Phosphatase 144 U/L H U/L (38-126) Total Protein 7.0 g/dL g/dL (6.3-8.2) Albumin 3.9 g/dL g/dL (3.5-5.1) RPR Pending Blood Type Antibody Screen 07/25/21 18:28 WBC RBC Hgb Hct MCV MCH MCHC RDW Plt Count MPV Immature Gran % (Auto) Neut % (Auto) Lymph % (Auto) [place] % (Auto) Eos % (Auto) Baso % (Auto) Lymph # (Auto) [place] # (Auto) Eos # (Auto) Baso # (Auto) Abs Immat Gran (auto) Absolute Neuts (auto) Absolute Nucleated RBC Nucleated RBC % Sodium Potassium Chloride Carbon Dioxide Anion Gap BUN Creatinine Estim Creat Clear Calc Estimated GFR Glucose Uric Acid Calcium Total Bilirubin AST ALT Alkaline Phosphatase Total Protein Albumin RPR Blood Type A Positive Antibody Screen Negative Patient hx anesthesia problems: none Family hx anesthesia problems: none Results Review: All pre-operative r
[2021-07-26] MEDS: OXYTOCIN 30 UNITS/NS 500 ML 30 UNITS/500 ML BAG 6 UNITS IV CONT (07:26)
--- NOTE | 2021-07-26 09:35 | WPDOBADMIT ---
Obstetrics - Admit Note Admission Note: record reviewed. Additions to the history and/or subsequent changes in the physical findings follow. 26 y/o at 37 1/7 with gestational HTN, here for induction of labor. Headache a little better today. Ancef for GBS. Cervidil overnight, has been withdrawn. Receiving oxytocin. Had SROM about 30 min ago. AVSS NST reactive TOCO irregular contraactions ABD soft, nontender, gravid, vertex EXT nontender Cervix 2/60/-2. Gross ROM. IUPC placed. A; IUP at term with gestational HTN, GBS pos. P: Oxytocin. Ancef. Anticipate .
[2021-07-26] MEDS: LACTATED RINGERS 1,000 ML 125 ML IV CONT (11:57)
--- NOTE | 2021-07-26 13:50 | PM.OBPNLAB ---
Pain Control Date/time seen: 07/26/21 13:50 Comments: Comfortable with epidural Pelvic Exam Dilation (cm): 4 Effacement (%): 80 station: -1 Contractions Monitor mode: Internal Contraction frequency: 3 Contraction pattern: Regular Status status: Category l Assessment and Plan Plan: continuous present management
[2021-07-26] MEDS: ACETAMINOPHEN 500 MG TABLET 1000 MG PO (15:49)
--- NOTE | 2021-07-26 17:08 | PM.OBPRVD ---
OB - Delivery Note Procedure Delivery date: 07/26/21 Procedure: Induction of labor with events: Induced HTN Intrapartal events: None Induction method: per pitocin protocol and per cervidil protocol Delivery augmentation: rupture of membranes Delivery monitor: external FHT, external uterine and internal uterine Route of delivery: Laceration Description: Perineal - 2nd Degree Delivery repair: vicryl (3-0) Specimen: Yes (cord blood, placenta) Quantitative Blood Loss (ml): 322 Anesthesia type: Epidural Disposition: PACU Complications: None Narrative: 26 y/o at 37 1/7 weeks gestation who presented to the hospital for induction of labor. Cervidil was placed overnight, was withdrawn the next morning. She received Ancef for GBS bacteruria. Oxytocin was administered intravenously. Amniotomy was performed with return of clear fluid. She received an epidural for pain control. Her labor progressed and her cervix dilated completely. She pushed with good effort and delivered the 's head to the perineum. A loose nuchal cord was splinted and the body delivered. The cord was reduced. The nose and mouth were bulb suctioned. After a delay, the cord was clamped and cut. The infant was handed off the field. Cord blood was collected. The placenta delivered spontaneously and was grossly normal in appearance. The usual 3 vessel cord was noted. A second degree midline perineal laceration was sustained. This was reapproximated using 3 0 Vicryl in the usual layered fashion. Excellent hemostasis resulted as did excellent reapproximation of the normal anatomy. Needle and instrument counts were correct. The patient was taken to recovery room in stable condition. The infant went to the nursery in stable condition. I was present and scrubbed for the entire delivery. Baby Date of : 07/26/21 Time of : 16:42 Weeks of gestation at delivery: 37 gender: Female Weight (pounds): 6 Weight (ounces): 11 presentation: vertex position: Left Occiput Anterior Placenta delivery description: Spontaneous and Normal Configuration cord vessel description: 3 Vessels, Nuchal Cord and Delayed Cord Clamping score one minute: 9 score five minutes: 9
--- NOTE | 2021-07-26 17:11 | PM.OBDSVD ---
DS: Admitting Diagnosis Discharge Date 07/28/21 Admitting Diagnosis IUP at 37 1/7 weeks Gestational hypertension DS: Discharge Diagnosis Discharge Diagnosis (1) (normal spontaneous vaginal delivery): Code(s): O80 - Encounter for full-term uncomplicated delivery Status: Acute (2) Gestational hypertension: Code(s): O13.9 - Gestational [-induced] hypertension without significant proteinuria, unspecified trimester Status: Acute (3) GBS bacteriuria: Code(s): R82.71 - Bacteriuria Status: Acute OB - DS: Summary OB Procedures : None OB Procedures Intrapartum: Spontaneous Vag Delivery OB Procedures: : None DS: Data Data Completed and Pending Pending studies at discharge: Pending at discharge 07/26/21 16:46 Surgical [PTH] Routine Labs on day of discharge: Labs from last 24 hours 07/25/21 07/25/21 07/25/21 18:28 18:28 17:25 WBC RBC Hgb Hct MCV MCH MCHC RDW Plt Count MPV Immature Gran % (Auto) Neut % (Auto) Lymph % (Auto) [place] % (Auto) Eos % (Auto) Baso % (Auto) Lymph # (Auto) [place] # (Auto) Eos # (Auto) Baso # (Auto) Abs Immat Gran (auto) Absolute Neuts (auto) Absolute Nucleated RBC Nucleated RBC % Sodium 137 Potassium 4.4 Chloride 105 Carbon Dioxide 22 Anion Gap 10 BUN 6 L Creatinine 0.40 L Estim Creat Clear Calc 193 Estimated GFR > 60 Glucose 85 Uric Acid 4.8 Calcium 9.6 Total Bilirubin 0.7 AST 19 ALT 16 Alkaline Phosphatase 144 H Total Protein 7.0 Albumin 3.9 RPR Pending Blood Type A Positive Antibody Screen Negative 07/25/21 17:25 WBC 10.2 H RBC 4.20 Hgb 12.4 Hct 36.5 L MCV 86.9 MCH 29.5 MCHC 34.0 RDW 13.1 Plt Count 205 MPV 12.2 H Immature Gran % (Auto) 0.5 Neut % (Auto) 76.3 H Lymph % (Auto) 15.4 L [place] % (Auto) 7.2 Eos % (Auto) 0.4 Baso % (Auto) 0.2 Lymph # (Auto) 1.58 [place] # (Auto) 0.7 H Eos # (Auto) 0.0 Baso # (Auto) 0.0 Abs Immat Gran (auto) 0.05 H Absolute Neuts (auto) 7.8 H Absolute Nucleated RBC 0.0 Nucleated RBC % 0.0 Sodium Potassium Chloride Carbon Dioxide Anion Gap BUN Creatinine Estim Creat Clear Calc Estimated GFR Glucose Uric Acid Calcium Total Bilirubin AST ALT Alkaline Phosphatase Total Protein Albumin RPR Blood Type Antibody Screen Discharge Plan Discharge Attending physician on discharge: Reji Collier Discharging Clinician: Reji Collier Patient Disposition: Home, Self-Care Activity: may shower, no straining and pelvic rest Diet: regular Wound Care Instructions: follow printed instructions Discharge Instructions: Education: Mom and Baby Guide Given to: Mother Follow-Up: Call your delivering provider's office for an appointment to be seen in: 6 Weeks Mom and baby should come to the [facility] for the follow-up appointment. Appointment Date/Time: Thursday, July 29, 2021 at 11:00 a.m. What to expect at your follow-up visit: Blood Pressure Check Physical Assessment Call [phone] if you are unable to keep your appointment time. BREAST CARE: * Wear a snug supportive bra. * For engorgement discomfort: Breast Feeding: * Apply warm moist washcloths * Express milk as needed to relieve engorgement * Wear loose clothing Bottle Feeding: * May apply ice packs * For sore nipples: * Identify correct latch-on * Apply warm moist washcloths before and after nursing * Air dry nipples after nursing * May apply Lansinoh cream to nipples EPISIOTOMY/PERINEAL CARE: * Until bleeding stops, use your sania bottle after urinating * Change your pad frequently throughout the day * You may take sitz baths several times a day (fill your bathtub with wa
[2021-07-26] MEDS: OXYTOCIN 30 UNITS/NS 500 ML 30 UNITS/500 ML BAG 125 UNITS IV CONT (17:13)
[2021-07-26] MEDS: IBUPROFEN 600 MG TABLET PO (18:59)
[2021-07-26] MEDS: WITCH HAZEL 40 PADS 1 PAD TOPICAL (19:25)
[2021-07-26] MEDS: BENZOCAINE 20% AER SPR (*SP) 56 GM CAN 1 SPRAY TOPICAL (19:25)
[2021-07-27] VITALS (8 sets, daily range): BP systolic 117–129; BP diastolic 74–87; PULSE 96–113; RESP 16–18; TEMP 36.5–36.9; O2SAT 96–99
[2021-07-27 05:29] LABS: Hematocrit 29.2 % (37.0-47.0); Hemoglobin 9.7 g/dL (12.0-15.0)
[2021-07-27 07:31] LABS: Rapid Plasma Reagin Non-Reactive (NonReactive)
--- NOTE | 2021-07-27 07:46 | PM.OBPNVD ---
OB - PN: Subj Subjective Date/time seen: 07/27/21 07:46 Patient comments: no complaints and pain well controlled OB - PN: Obj Data Labs CBC & Chem 7: 07/27/21 04:39 07/25/21 17:25 Labs: Laboratory Results - last 24 hr 07/25/21 07/27/21 18:28 04:39 Hgb 9.7 L Hct 29.2 L RPR Non-reactive OB - PN A/P Plan day: 1 Plan: routine care Time Spent With Patient Time: Total time spent is greater than 50% in coordination of care (as documented) at patient's floor/unit and/or counseling patient: Time with patient: less than 15 minutes Review of Systems Review of Systems: All systems reviewed & are unremarkable except as noted in HPI and below Exam Const: General: no acute distress Eyes: General: appearance normal, both eyes and all related structures Neck: Neck: supple and no JVD Thyroid: thyroid normal Resp: Effort & Inspection: normal respiratory effort Auscultation: clear to auscultation bilaterally Cardio: Rate: regular rate Rhythm: regular rhythm GI: Inspection: non-distended GI Palp: Yes Soft to palpation, No Tenderness to palpation present (GI) and No Guarding due to palpation present (GI) Auscultation: normal bowel sounds : General: Yes bladder normal to palpation External Female Exam: normal external appearance Speculum Exam - Vagina: normal vaginal discharge and No vaginal bleeding Speculum Exam - Cervix: nontender Bimanual exam- vagina & uterus: bladder normal to palpation and No Cervical tenderness present OB/external & speculum: No vaginal bleeding Skin: General skin exam: no rashes or lesions noted Extrem: General: normal to inspection and no edema Psych: Mental Status: mental status grossly normal Affect: normal affect
[2021-07-27] MEDS: IBUPROFEN 600 MG TABLET PO ×3 (08:22→22:54)
[2021-07-27] MEDS: MULTIVIT/MIN/PREN/FOL AC/IRON TABLET 1 TAB PO (08:23)
[2021-07-27] MEDS: POLYSACCHARIDE IRON COMPLEX 150 MG CAPSULE PO ×2 (08:23→15:53)
[2021-07-27] MEDS: DOCUSATE SODIUM 100 MG CAPSULE PO ×2 (08:23→15:53)
--- NOTE | 2021-07-27 09:20 | WPDANLDPN2 ---
Anes-Prog Note L&D Date/Time: 07/27/21 09:20 Comfortable throughout: labor and delivery Neuraxial method: epidural Epidural/Spinal procedure site: clean & non-tender Neuro status: Neuro function grossly intact. Cardiovascular status: normal Respiratory status: normal Airway patency: baseline Mental status: baseline Post-Op hydration status: normal Vital Signs: Last Vital Signs Temp 98 F 07/27/21 04:45 Pulse 108 H 07/27/21 08:35 Resp 18 07/27/21 08:35 BP 117/74 07/27/21 04:45 Pulse Ox 96 07/27/21 08:35 Pain score (VAS): 10/16 I/O: Intake & Output 07/26/21 07/27/21 07/27/21 23:59 07:59 15:59 Intake Total 600 500 Output Total 679 600 Balance -79 -100 Patient feedback: Patient satisfied with anesthetic care.
--- NOTE | 2021-07-27 18:10 | PC.NURSE ---
Patient viewed the discharge video Mother & Baby Care, The First Two Weeks . Patient was given the opportunity and encouraged to ask questions. Patient verbalized understanding of information shared and has been given the mother/baby guide for home reference.
[2021-07-28 03:45] VITALS: BP 122/72; PULSE 87
[2021-07-28] MEDS: IBUPROFEN 600 MG TABLET PO (06:06)
[2021-07-28 07:50] VITALS: BP 123/77; PULSE 86; RESP 18; TEMP 36.9; O2SAT 100
[2021-07-28 08:45] VITALS: PULSE 86; RESP 18; O2SAT 100
[2021-07-28] MEDS: MULTIVIT/MIN/PREN/FOL AC/IRON TABLET 1 TAB PO (09:25)
[2021-07-28] MEDS: DOCUSATE SODIUM 100 MG CAPSULE PO (09:25)
[2021-07-28] MEDS: POLYSACCHARIDE IRON COMPLEX 150 MG CAPSULE PO (09:26)
--- NOTE | 2021-07-28 11:37 | P.DS_ITS ---
DS: Admitting Diagnosis Discharge Date 07/28/2021 Admitting Diagnosis term iup/htn DS: Summary Hospital Course Hospital Course: patient was admitted for induction of labor at 37 weeks secon car[place] to elevated blood pressures she underwent spontaneous vaginal delivery and her hospital course was. Blood pressures were stable and she remained afebrile. She was ambulating generally without complaints Time Spent with Patient Time attestation: Total time spent providing and/or coordinating discharge serv ices: Exam Const: General: no acute distress Eyes: General: appearance normal, both eyes and all related structures Neck: Neck: supple and no JVD Thyroid: thyroid normal Resp: Effort & Inspection: normal respiratory effort Auscultation: clear to auscultation bilaterally Cardio: Rate: regular rate Rhythm: regular rhythm GI: Inspection: non-distended GI Palp: Yes Soft to palpation, No Tenderness to palpation present (GI) and No Guarding due to palpation present (GI) Auscultation: normal bowel sounds : General: Yes bladder normal to palpation External Female Exam: normal external appearance Speculum Exam - Vagina: normal vaginal discharge and No vaginal bleeding Speculum Exam - Cervix: nontender Bimanual exam- vagina & uterus: bladder normal to palpation and No Cervical tenderness present OB/external & speculum: No vaginal bleeding Skin: General skin exam: no rashes or lesions noted Extrem: General: normal to inspection and no edema Psych: Mental Status: mental status grossly normal Affect: normal affect DS: Data Data Completed and Pending Pending studies at discharge: Pending at discharge 07/26/21 16:46 Surgical [PTH] Routine Discharge Plan Discharge Attending physician on discharge: Reji Collier Discharging Clinician: Reji Collier Patient Disposition: Home, Self-Care Activity: may shower, no straining and pelvic rest Diet: regular Wound Care Instructions: follow printed instructions Discharge Instructions: Call or return if temperature above 100.4? F, increased abdominal pain, increased vaginal bleeding or any new problems. Stand Alone Forms: General Discharge Information Follow-up/Referrals: Reji Collier MD [Physician] - 6 Weeks Discharge Medications: New ibuprofen 600 mg tablet 600 mg PO Q6H PRN (Reason: cramps) Qty: 30 RF: 0 Continued ondansetron HCl 4 mg tablet 4 mg PO DAILY PRN (Reason: Nausea) RF: 0 Classic 28 mg iron- 800 mcg Tablet 1 tablet PO DAILY RF: 0 sertraline [Zoloft] 25 mg Tablet 25 mg PO DAILY RF: 0 Date of admission: 07/25/21 15:52 Primary Care Provider: RandChinedu Admitting Provider: Reji Collier Attending physician on admission: Reji Collier Condition: Stable
--- NOTE | 2021-07-28 11:39 | PM.OBPNVD ---
OB - PN: Subj Subjective Date/time seen: 07/28/21 11:39 Patient comments: no complaints and pain well controlled baby status: doing well and nursing well OB - PN: Obj Data Labs CBC & Chem 7: 07/27/21 04:39 07/25/21 17:25 OB - PN A/P Plan day: 2 Plan: routine care, discharge home and follow up 6 weeks Time Spent With Patient Time: Total time spent is greater than 50% in coordination of care (as documented) at patient's floor/unit and/or counseling patient: Time with patient: less than 15 minutes Review of Systems Review of Systems: All systems reviewed & are unremarkable except as noted in HPI and below Exam Const: General: no acute distress Eyes: General: appearance normal, both eyes and all related structures Neck: Neck: supple and no JVD Thyroid: thyroid normal Resp: Effort & Inspection: normal respiratory effort Auscultation: clear to auscultation bilaterally Cardio: Rate: regular rate Rhythm: regular rhythm GI: Inspection: non-distended GI Palp: Yes Soft to palpation, No Tenderness to palpation present (GI) and No Guarding due to palpation present (GI) Auscultation: normal bowel sounds : General: Yes bladder normal to palpation External Female Exam: normal external appearance Speculum Exam - Vagina: normal vaginal discharge and No vaginal bleeding Speculum Exam - Cervix: nontender Bimanual exam- vagina & uterus: bladder normal to palpation and No Cervical tenderness present OB/external & speculum: No vaginal bleeding Skin: General skin exam: no rashes or lesions noted Extrem: General: normal to inspection and no edema Psych: Mental Status: mental status grossly normal Affect: normal affect
[2021-07-29 10:51] VITALS: BP 117/73; PULSE 95; RESP 20; TEMP 36.6; O2SAT 99
== END 2021-07-28 15:11 | disposition home or self-care (01) | DRG 807 ==
LOC: ANHLDR 07-26 17:14 → ANHOB2 07-28 08:32 → ANHLDR 07-31 09:33 → ANHOB2 07-31 09:33
PROVIDERS: Admitting Provider Obstetrics & Gynecology; PCP Physician Assistant; Visit Provider Obstetrics & Gynecology
DX: O13.4 Gestational [pregnancy-induced] hypertension without significant proteinuria, complicating childbirth (principal); Z37.0 Single live birth; O70.1 Second degree perineal laceration during delivery; O99.824 Streptococcus B carrier state complicating childbirth; O69.81X0 Labor and delivery complicated by cord around neck, without compression, not applicable or unspecified; O76 Abnormality in fetal heart rate and rhythm complicating labor and delivery; Z3A.37 37 weeks gestation of pregnancy
CPT/HCPCS: 36415; 59025; 80053; 81001; 82570; 84156; 84550; 85014; 85018; 85025; 86592; 86850; 86900; 86901; 87086; 87088; 88307; 99199; A9270; J0690; J2590; J2795; J3010; J7120

== ENCOUNTER 2022-01-19 12:12 | Outpatient (CLI) | payer OTHER, SELFPAY ==
--- NOTE | ~2022-01-19 | US_ITS ---
US axilla LT 01/19/2022 12:35 Indication: Left axillary palpable lump for one year Procedure: High-resolution ultrasound of the left axilla Comparison: No prior studies for comparison. Findings: There are multiple lymph nodes in the left axilla, all retaining their normal fatty hilum, the largest of which measures 3.6 x 2 x 0.8 cm. Impression: 1: Mild left axillary lymphadenopathy, all lymph nodes retain normal fatty hilum, likely reactive. Reviewed, dictated and finalized at location A. Impression: 1: Mild left axillary lymphadenopathy, all lymph nodes retain normal fatty hilu m, likely reactive.
== END 2022-01-19 12:13 | disposition home or self-care (01) ==
LOC: CHSIMG 12:17
PROVIDERS: PCP Physician Assistant; Visit Provider Obstetrics & Gynecology
DX: R22.32 Localized swelling, mass and lump, left upper limb (principal)
CPT/HCPCS: 76882

== ENCOUNTER 2023-01-14 06:56 | Day surgery (SDC) | payer OTHER, SELFPAY ==
[2023-01-04 11:01] VITALS: BMI 31.4
[2023-01-08 10:24] VITALS: BMI 30.2
[2023-01-14 08:40] VITALS: BP 131/89; PULSE 82; RESP 20; TEMP 36.3; O2SAT 100
[2023-01-14] MEDS: SCOPOLAMINE 1.5 MG PATCH TRANSDERM (09:09)
[2023-01-14] MEDS: LACTATED RINGERS 1,000 ML 30 ML IV CONT (09:10)
--- NOTE | 2023-01-14 09:25 | P.PNAN_ITS ---
Anes - Initial Pre Proc Eval Procedure: Operation Date: 01/14/23 10:00 Proposed Procedures p Excisional Biopsy Left Axillary Mass - Shabana Del Real MD Date/Time: 01/14/23 09:25 Surgeon: Shabana Del Real MD Pre Op Diagnosis: Left Axillary Mass Patient Data Age: 27 Gender: F Height: 1.63 m Weight: 83.2 kg Last Vital Signs Temp 36.3 C L 01/14/23 08:40 Pulse 82 01/14/23 08:40 Resp 20 01/14/23 08:40 BP 131/89 01/14/23 08:40 Pulse Ox 100 01/14/23 08:40 O2 Del Method Room Air 01/14/23 08:40 Allergies Allergy/AdvReac Type Severity Reaction Status Date / Time levofloxacin [From Levaquin] Allergy Hives Verified 01/14/23 08:43 Penicillins Allergy Rash Verified 01/14/23 08:43 hydrocodone AdvReac Dizziness Verified 01/14/23 08:43 Home Medications Medication Instructions Recorded Confirmed Type bupropion HCl 100 mg tablet,12 hr 100 mg PO DAILY 12/26/22 01/14/23 History sustained-release (Wellbutrin SR) Patient hx anesthesia problems: none Family hx anesthesia problems: none Results Review: All pre-operative results and documents have been reviewed as part of the pre- operative evaluation. [facility] Past Medical History Medical History Anxiety Surgical History Surgical History Hx of cholecystectomy Hx of tonsillectomy Family History Family History Other Diabetes mellitus Heart disease Hypertension Social History Social History Smoking status: Never smoker Alcohol intake: current Alcohol use details: occasional when not Substance use: never Substance use type: does not use Living arrangements: with family Gender identity (if verbalized by the patient): Female Spiritual care concerns: No Anes - Eval Final PreProcedure Day of Procedure 01/14/23 09:25 Patient weight: obese Heart: regular rate and rhythm Lungs: clear to auscultation and normal air movement Airway: Mallampati scale class II Neurological: alert and oriented Last oral intake: >/= 8 hours ASA classification: II Emergent: no Anesthetic plan: proceed Anesthesia type and monitoring: general GIVS and LMA Results Review: All pre-operative results and documents have been reviewed as part of the pre- operative evaluation. Informed Consent: The patient's anesthetic plan and its attendant risks and benefits were discussed with the patient/family/POA. Questions were solicited and answers prov ided to the satisfaction of the patient/family/POA.
--- NOTE | 2023-01-14 10:17 | WPDHPUPDATE1 ---
History and Physical Update Update Date/Time: 01/14/23 10:17 History and Physical has been reviewed, including an updated exam of the patient. There are NO changes in the patient's condition. Risks, benefits, and alternatives have been discussed and questions answered. Patient agrees to proceed with procedure.
[2023-01-14] MEDS: LIDO 1%/EPINEPHRINE 1:100,000 20 ML VIAL INFILTRATE (10:48)
[2023-01-14] MEDS: ceFAZolin SODIUM 2 GM/20 ML SW SYRINGE IV PUSH (10:50)
--- NOTE | 2023-01-14 11:03 | W.PM.PROC2 ---
Procedure Note - Detailed Date of Procedure 01/14/23 Pre-op Diagnosis Left Axillary Mass measuring approximately 6 x 4 cm Post-op Diagnosis Same Procedure Performed excisional biopsy left axillary mass measuring approximately 6 x 4 cm Surgeon Shabana Del Real MD Anesthesia MAC and Local Indications 27-year-old female presenting to the office with a growing left axillary mass. The patient reports the mass has been slowly enlarging over the last 2 years. Findings Non encapsulated 6 x 4 cm left axillary mass, appearing to either be multi lobular lipoma or breast tissue Description of Procedure The patient was taken to the operating room placed in the supine position. After adequate induction of MAC anesthesia, the patient was prepped and draped the normal sterile fashion. A time-out was then done to verify the patient's identity, as well as the procedure being performed. I began by localizing the area in this mass in the left axilla. I then made a incision over the most central portion of this mass. This was taken down into the subcutaneous tissue and through the dermis. I encountered a non encapsulated mass that was either a multi lobular lipoma or breast tissue. I went ahead and excised this area using the Bovie cautery and sharp dissection. Once the mass was completely excised, it was sent to pathology for further review. The mass was noted to be entirely within the subcutaneous tissue, and did not seem to involve the underlying fascia or musculature. I then copiously irrigated the cavity. No other pathology was noted, hemostasis was noted. I then closed the subcutaneous tissue with 3-0 Vicryl suture. The skin was closed with 4-0 Monocryl subcuticular suture. Dermabond was placed on the wound. The patient tolerated the procedure well and will be transferred to the recovery room in stable condition. Estimated Blood Loss 5 Drains No Packing No Pathology Yes Complications No immediate complications Condition Stable Disposition PACU [facility] Billing Surgery - Charge Forward: Surgery Billing
[2023-01-14 11:20] VITALS: BP 153/61; PULSE 130; RESP 16; O2SAT 100
--- NOTE | 2023-01-14 11:32 | SUR.PHASEII ---
1120; PT ARRIVED INTO [facility]. DR SHAIKH WITH PT. MONITOR SHOWS HR 130's. DR SHAIKH AWARE. CONTINUE TO MONITOR.
--- NOTE | 2023-01-14 11:33 | SUR.PHASEII ---
PT'S HR 106. DR SHAIKH NOTIFIED. PT AWAKENS EASILY. RESP EVEN UNLABORED. DENIES PAIN.
[2023-01-14 11:44] VITALS: BP 140/72; PULSE 106; RESP 16; O2SAT 99
[2023-01-14 12:05] VITALS: BP 146/90; PULSE 88; RESP 16; O2SAT 100
--- NOTE | 2023-01-14 12:08 | WPDANESPN ---
Anes - Prog Note Post-Op Date/Time: 01/14/23 12:08 Cardiovascular status: normal Respiratory status: normal Airway patency: baseline Mental status: baseline Post-Op hydration status: normal Vital Signs: Last Vital Signs Temp 36.3 C L 01/14/23 08:40 Pulse 106 H 01/14/23 11:44 Resp 16 01/14/23 11:44 BP 140/72 01/14/23 11:44 Pulse Ox 99 01/14/23 11:44 O2 Del Method Room Air 01/14/23 11:44 Pain Score (VAS): 0 I/O: Intake & Output 01/13/23 01/14/23 01/14/23 23:59 07:59 15:59 Intake Total 0 Balance 0 Post-procedural complaints: none Patient Feedback: Patient satisfied with anesthetic care.
== END 2023-01-14 12:17 | disposition home or self-care (01) ==
PROVIDERS: PCP Physician Assistant; Visit Provider Surgery
PROC: (CPT 21552; principal; 2023-01-14 10:00)
DX: D21.3 Benign neoplasm of connective and other soft tissue of thorax (principal)
CPT/HCPCS: 21552

== ENCOUNTER 2023-01-14 08:00 | Outpatient (NON) | payer OTHER, SELFPAY | END 2023-01-14 08:01 | disposition home or self-care (01) | LOC: ANHLAB 01-15 07:25 | PROVIDERS: PCP Physician Assistant; Visit Provider Surgery | DX: R22.32 Localized swelling, mass and lump, left upper limb (principal) | CPT/HCPCS: 88304 ==

== ENCOUNTER 2023-01-15 22:03 | Observation (INO) | payer OTHER, SELFPAY ==
--- NOTE | ~2023-01-15 | CT_ITS ---
Clinical Indication: Swelling, pain, left axillary region injury, status post recent surgery CT Scan of the Chest with Contrast: Technique: Contiguous sections were acquired throughout the chest after intravenous administration of 75 cc of Omnipaque 350. Dose reduction technique was used on this scan by utilizing automated exposu re control and iterative reconstruction technique. The dose-length product (DLP) was 294.04 mGy-cm. Findings: There is no evidence of any significant mediastinal, hilar or axillary lymphadenopathy. There is no f illing defect in the pulmonary arterial tree to suggest pulmonary embolus. There is no evidence of ao rtic dissection or aneurysm. At the left anterior shoulder region/left axillary region, there is a 6.0 x 4.3 x 6.0 cm hyperdense m asslike lesion, most consistent with hematoma. There is mild surrounding soft tissue infiltrative arash nge. There is no evidence of pleural or pericardial effusion. The lungs are clear. No pulmonary nodules or infiltrates are noted. Images through the upper abdomen reveal cholecystectomy clips. Impression: 6.0 x 4.3 x 6.0 cm hematoma at the anterior left shoulder/left axillary region. Clear lungs. Reviewed, dictated and finalized at [facility]. Impression: 6.0 x 4.3 x 6.0 cm hematoma at the anterior left shoulder/left axillary region. Clear lungs.
[2023-01-15 22:06] VITALS: BP 144/91; PULSE 71; RESP 20; TEMP 36.4; O2SAT 100
[2023-01-15 22:22] VITALS: BP 127/88; BP 133/93; PULSE 79; PULSE 81; RESP 18; O2SAT 98
[2023-01-15 23:40] LABS: Basophils Percent Auto 0.5 % (0.2-1.2); Eosinophils Absolute Auto 0.1 K/mm3 (0-0.3); Eosinophils Percent Auto 1.1 % (0-4.4); Hematocrit 36.5 % (37.0-47.0); Hemoglobin 12.1 g/dL (12.0-15.0); Immature Granulocyte Absolute 0.02 K/mm3 (0.00-0.031); Immature Granulocyte Percent A 0.2 % (0-0.5); Lymphocytes Absolute Auto 3.04 K/mm3 (0.9-3.2); Lymphocytes Percent Auto 36.5 % (18.3-44.2); Mean Corpuscular HGB Conc 33.2 g/dl (32-36); Mean Corpuscular Hemoglobin 29.8 pg (26-34); Mean Corpuscular Volume 89.9 fl (80-100); Mean Platelet Volume 12.3 fl (7.4-10.4); Monocytes Absolute Auto 0.5 K/mm3 (0.1-0.6); Monocytes Percent Auto 6.2 % (2.6-8.5); Neutrophils Absolute Auto 4.6 K/mm3 (1.3-6.7); Neutrophils Percent Auto 55.5 % (45.5-73.1); Platelet Count Result 204 k/mm3 (150-375); Red Blood Count 4.06 M/mm3 (4.2-5.4); White Blood Count 8.3 K/mm3 (4.5-10.0)
[2023-01-15 23:43] LABS: INR 1.1; Prothrombin Time 13.5 Seconds (11.1-14.7)
[2023-01-15 23:48] LABS: Alanine Aminotransferase 20 U/L (6-35); Albumin Level 3.9 g/dL (3.5-5.1); Alkaline Phosphatase 42 U/L (38-126); Anion Gap 7 mmol/L (8-16); Aspartate Amino Transferase 25 U/L (14-36); Bilirubin,Total 0.6 mg/dL (0.2-1.3); Blood Urea Nitrogen 20 mg/dL (7-17); Carbon Dioxide 25 mmol/L (22-30); Chloride 106 mmol/L (98-107); Estimated CRCL calculation 123 ml/min; Estimated Glomerular Filt Rate > 60; Glucose 94 mg/dL (65-110); Sodium 138 mmol/L (137-145)
[2023-01-15] MEDS: ONDANSETRON INJ 4 MG/2 ML VIAL IV PUSH (23:54)
[2023-01-16] VITALS (13 sets, daily range): BP systolic 102–126; BP diastolic 58–83; PULSE 61–81; RESP 14–20; TEMP 36.1–36.6; O2SAT 96–100; BMI 32.1
--- NOTE | 2023-01-16 00:20 | ED.GENADULT ---
HPI - General Adult General Chief complaint: Skin/Abscess/Foreign Body Stated complaint: wound Time Seen by Provider: 01/15/23 22:36 History of Present Illness HPI narrative: Patient is a 27-year-old female who presents the emergency department with chief complaint of left axilla pain. Patient reports that she had a surgery done yesterday by Dr. Del Real and reports that she was doing very well patient reports that she had a mass removed from her left axillary area. Patient reports that she was at home today and she was not lifting anything but her [id number] child jumped on her chest area and then her armpit started swelling the patient reports that the area now is swollen to the size of an apple and reports that it is exquisitely painful and reports that she has a tingling sensation down her left arm. Related Data Home Medications Medication Instructions Recorded Confirmed bupropion HCl 100 mg tablet,12 hr 100 mg PO DAILY 12/26/22 01/14/23 sustained-release (Wellbutrin SR) Allergies Allergy/AdvReac Type Severity Reaction Status Date / Time levofloxacin [From Levaquin] Allergy Hives Verified 01/15/23 22:22 Penicillins Allergy Rash Verified 01/15/23 22:22 hydrocodone AdvReac Dizziness Verified 01/15/23 22:22 Review of Systems Review of Systems: A 10 system review of systems was completed on the patient and is negative except for what is stated in the HPI. Nursing and ancillary documentation was reviewed. PMFSH Past Medical History Medical History Anxiety Surgical History Surgical History Hx of cholecystectomy Hx of tonsillectomy Family History Family History Other Diabetes mellitus Heart disease Hypertension Social History Social History Smoking status: Never smoker Alcohol intake: current Alcohol use details: occasional when not Substance use: never Substance use type: does not use Living arrangements: with family Gender identity (if verbalized by the patient): Female Spiritual care concerns: No Exam Narrative: GENERAL: Well-appearing, well-nourished, and in no acute distress. HEAD: Normocephalic, atraumatic. EYES: PERRLA and EOMI. ENT: Nares clear, no rhinorrhea or epistaxis. Mucous membranes moist. NECK: Supple. CHEST: Clear to auscultation. No respiratory distress. HEART: Regular rate and rhythm. No murmur heard. Normal peripheral pulses. ABDOMEN: Soft, nontender, nondistended, normal active bowel sounds. EXTREMITIES: Normal range of motion. No edema. There is a swollen area in the left axilla approximately the size of a small abscess, there is intact pulses in the left upper extremity there is intact sensation of the left upper extremity. SKIN: Warm, dry, no rash. NEURO: No focal deficits. Alert and oriented x3. PSYCH: Normal mood and affect. Course Vital Signs Vital signs: Vital Signs Temperature 36.4 C 01/15/23 22:06 Pulse Rate 71 01/15/23 22:06 Respiratory Rate 20 01/15/23 22:06 Blood Pressure 144/91 H 01/15/23 22:06 Pulse Oximetry 100 01/15/23 22:06 Oxygen Delivery Room Air 01/15/23 22:06 Temperature 36.4 C 01/15/23 22:06 Pulse Rate 81 01/15/23 22:22 Respiratory Rate 18 01/15/23 22:22 Blood Pressure 127/88 01/15/23 22:22 Pulse Oximetry 98 01/15/23 22:22 Oxygen Delivery Room Air 01/15/23 22:06 Medical Decision Making [facility] Narrative Medical decision making narrative: Differential diagnosis includes hematoma, postoperative swelling, arterial injury, vascular injury CT scan was ordered of the thorax with IV contrast to determine if there is active extravasation of contrast present Laboratory studies were obtained which showed a hemoglobin of 1
[2023-01-16] MEDS: MORPHINE SULFATE (*CRX) 2 MG/ML INJ IV PUSH (00:59)
[2023-01-16] MEDS: SODIUM CHLORIDE 0.9% IV 1,000 ML 125 ML IV CONT ×2 (03:42→13:24)
[2023-01-16] MEDS: ONDANSETRON INJ 4 MG/2 ML VIAL IV PUSH (05:41)
[2023-01-16] MEDS: MORPHINE SULFATE (*CRX) 4 MG/ML INJ IV PUSH (05:42)
--- NOTE | 2023-01-16 09:38 | PM.IMHP ---
H&P: HPI History of Present Illness Date/Time: 01/16/23 09:39 Chief Complaint: Left axilla pain Narrative: This is a 27 yo F who underwent excisional biopsy left axillary mass by Dr. Del Real on 01/14/23 as an outpatient. She initially did well and only had minor swelling at the incision. She was not even requiring any pain medication following surgery. Last night, her [id number] daughter was sitting on her lap and accidentally hit her left axilla area when trying to get down. She did not lift her child. Almost immediately, she had pain and there was swelling that she reports was about the size of a golf ball. She came into the ER last night for evaluation. CT chest with contrast showed a 6 x 4.3 x 6 cm hematoma at the anterior left shoulder/left axillary region. Labs showed a stable hemoglobin of 12.1. She is hemodynamically stable. Our service was consulted by the ED physician and she was admitted for post-operative hematoma and pain. She is now seen on the medical floor. No drainage from her incision. She reports having some nausea and vomiting last night when her pain became so severe. She was given IV morphine for the pain, which helped relieve her pain. This morning, she feels that the left axillary area has gotten slightly more swollen overnight. No other complaints at this time. Still having pain. Also has associated tingling and pain shooting down her left arm to her hand. Pathology from surgery still pending. Review of Systems Review of Systems: All systems reviewed & are unremarkable except as noted in HPI and below PMFSH Past Medical History Medical History Anxiety Surgical History Surgical History H/O excision of mass 01/14/23 excision of left axillary mass Hx of cholecystectomy Hx of tonsillectomy Family History Family History Other Diabetes mellitus Heart disease Hypertension Social History Social History Smoking status: Never smoker Alcohol intake: current Drinks per week: 1 Alcohol use details: occasional when not Substance use: never Substance use type: does not use Lack of Transportation: No Lack of Food: Never True Current Housing: I Have Housing Concerned About Future Housing: No Difficulty Paying Gas/Electric Bills: No Difficulty Paying for Meds: No Currently Unemployed: No Education: High School Diploma/GED Difficulty w/ Childcare or Family Care: No Living arrangements: with family Gender identity (if verbalized by the patient): Female Spiritual care concerns: No Meds Home Medications and Allergies Home Medications Medication Instructions Recorded Confirmed Type tramadol 50 mg tablet 50 mg PO Q6H PRN pain #20 tabs 01/14/23 01/16/23 Rx Allergies Allergy/AdvReac Type Severity Reaction Status Date / Time levofloxacin [From Levaquin] Allergy Hives Verified 01/16/23 03:13 Penicillins Allergy Rash Verified 01/16/23 03:13 hydrocodone AdvReac Dizziness Verified 01/16/23 03:13 Vital Signs Vital Signs - 24 hr 01/15/23 22:06 01/15/23 22:22 01/15/23 22:22 Temperature 97.6 F Pulse Rate 71 79 81 Respiratory Rate 20 18 18 Blood Pressure 144/91 H 133/93 H 127/88 Pulse Oximetry 100 98 98 Oxygen Delivery Room Air 01/16/23 01:49 01/16/23 03:01 01/16/23 03:14 Temperature Pulse Rate 67 70 65 Respiratory Rate 18 20 Blood Pressure 109/83 107/78 Pulse Oximetry 99 99 100 Oxygen Delivery Room Air 01/16/23 03:14 01/16/23 08:48 Temperature 97.4 F L Pulse Rate 65 80 Respiratory Rate 20 Blood Pressure 123/70 Pulse Oximetry 100 97 Oxygen Delivery Room Air Exam Const: General: no acute distress Nutritional Appearance: average body habitus Orientation/consciousness: patient oriented x3
--- NOTE | 2023-01-16 10:57 | PC.NURSE ---
On 01/16/23, the student, [Xavier Oliver], provided care and completed [facility] documentation on this patient. I have reviewed the student's documentation and agree with the findings.
--- NOTE | 2023-01-16 12:00 | WPDHPUPDATE1 ---
History and Physical Update Update Date/Time: 01/16/23 12:00 History and Physical has been reviewed, including an updated exam of the patient. There are NO changes in the patient's condition. Risks, benefits, and alternatives have been discussed and questions answered. Patient agrees to proceed with procedure.
--- NOTE | 2023-01-16 13:57 | PCCCNOTE ---
On 01/16/23, the student, [Lizzie Garcia ], provided care and completed [facility] documentation on this patient. I have reviewed the student's documentation and agree with the findings.
--- NOTE | 2023-01-16 14:56 | WPDANESEPPF ---
Anes - Initial Pre Proc Eval Procedure: Operation Date: 01/16/23 15:00 Proposed Procedures p Incision and Drainage Hematoma Left Axilla - Shabana Del Real MD Date/Time: 01/16/23 14:56 Surgeon: Luca King DO Pre Op Diagnosis: Left Axillary Hematoma Patient Data Age: 27 Gender: F Height: 1.63 m Weight: 85 kg Last Vital Signs Temp 36.1 C L 01/16/23 13:48 Pulse 67 01/16/23 13:48 Resp 18 01/16/23 13:48 BP 126/79 01/16/23 13:48 Pulse Ox 100 01/16/23 13:48 O2 Del Method Room Air 01/16/23 08:48 Allergies Allergy/AdvReac Type Severity Reaction Status Date / Time levofloxacin [From Levaquin] Allergy Hives Verified 01/23/23 11:16 Penicillins Allergy Rash Verified 01/23/23 11:16 hydrocodone AdvReac Dizziness Verified 01/23/23 11:16 Home Medications Medication Instructions Recorded Confirmed Type sulfamethoxazole 800 1 tablet PO Q12H #20 tabs 01/16/23 01/23/23 Rx mg-trimethoprim 160 mg tablet (Bactrim DS) Laboratory Tests 01/15/23 01/15/23 01/15/23 23:28 23:28 23:28 WBC 8.3 K/mm3 K/mm3 (4.5-10.0) RBC 4.06 M/mm3 L M/mm3 (4.2-5.4) Hgb 12.1 g/dL g/dL (12.0-15.0) Hct 36.5 % L % (37.0-47.0) MCV 89.9 fl fl (80-100) MCH 29.8 pg pg (26-34) MCHC 33.2 g/dl g/dl (32-36) RDW 12.0 % % (11.5-14.5) Plt Count 204 k/mm3 k/mm3 (150-375) MPV 12.3 fl H fl (7.4-10.4) Immature Gran % (Auto) 0.2 % % (0-0.5) Neut % (Auto) 55.5 % % (45.5-73.1) Lymph % (Auto) 36.5 % % (18.3-44.2) [place] % (Auto) 6.2 % % (2.6-8.5) Eos % (Auto) 1.1 % % (0-4.4) Baso % (Auto) 0.5 % % (0.2-1.2) Lymph # (Auto) 3.04 K/mm3 K/mm3 (0.9-3.2) [place] # (Auto) 0.5 K/mm3 K/mm3 (0.1-0.6) Eos # (Auto) 0.1 K/mm3 K/mm3 (0-0.3) Baso # (Auto) 0.0 K/mm3 K/mm3 (0.0-0.1) Abs Immat Gran (auto) 0.02 K/mm3 K/mm3 (0.00-0.031) Absolute Neuts (auto) 4.6 K/mm3 K/mm3 (1.3-6.7) Absolute Nucleated RBC 0.0 K/mm3 K/mm3 (0.0-0.012) Nucleated RBC % 0.0 % % (0.0-0.2) PT 13.5 Seconds Seconds (11.1-14.7) INR 1.1 APTT 28.0 SECONDS SECONDS (22.3-36.8) Sodium 138 mmol/L mmol/L (137-145) Potassium 4.0 mmol/L mmol/L (3.4-5.0) Chloride 106 mmol/L mmol/L (98-107) Carbon Dioxide 25 mmol/L mmol/L (22-30) Anion Gap 7 mmol/L L mmol/L (8-16) BUN 20 mg/dL H D mg/dL (7-17) Creatinine 0.60 mg/dL L mg/dL (0.7-1.0) Estim Creat Clear Calc 123 ml/min ml/min Estimated GFR > 60 (59 - ) Glucose 94 mg/dL mg/dL (65-110) Calcium 8.0 mg/dL L mg/dL (8.4-10.2) Total Bilirubin 0.6 mg/dL mg/dL (0.2-1.3) AST 25 U/L U/L (14-36) ALT 20 U/L U/L (6-35) Alkaline Phosphatase 42 U/L U/L (38-126) Total Protein 7.0 g/dL g/dL (6.3-8.2) Albumin 3.9 g/dL g/dL (3.5-5.1) Patient hx anesthesia problems: none Family hx anesthesia problems: none Results Review: All pre-operative results and documents have been reviewed as part of the pre-operative evaluation. [facility] Past Medical History Medical History (Updated 01/23/23 @ 11:34 by Simin Rose [facility]) Anxiety Depression Surgical History Surgical History (Updated 01/23/23 @ 11:28 by Dana Hoffmann) H/O excision of mass 01/14/23 excision of left axillary mass History of incision and drainage Complex incision and drainage left axillary hematoma measuring approximately 8 x 8 cm on 01/16/[address] Del Real Hx of cholecystectomy Hx of tonsillectomy Family History Family History Other Diabetes mellitus Heart disease Hypertension Social Hi
[2023-01-16] MEDS: ceFAZolin 2 GM/D5W 50 ML 2 GM/50 ML BAG IVPB (15:34)
[2023-01-16] MEDS: BUPIVACAINE/EPINEPHRINE 0.5% 50 ML VIAL 20 ML INFILTRATE (15:53)
[2023-01-16] MEDS: LACTATED RINGERS 1,000 ML 30 ML IV CONT (16:05)
--- NOTE | 2023-01-16 16:14 | W.PM.PROC2 ---
Procedure Note - Detailed Date of Procedure 01/16/23 Pre-op Diagnosis Left Axillary Hematoma Post-op Diagnosis Same Procedure Performed Complex incision and drainage left axillary hematoma measuring approximately 8 x 8 cm Surgeon Shabana Del Real MD Anesthesia MAC and Local Indications 27-year-old female status post excisional biopsy left axillary mass on 01/14, pre presenting to the hospital with a large left axillary hematoma after trauma to the area. Findings Old blood and clot noted in the cavity measuring approximately 8 x 8 cm, no active bleeding or infection noted Description of Procedure The patient was taken to the operating room and placed in the supine position. After adequate induction of MAC anesthesia, the patient was prepped and draped in the normal sterile fashion. A time-out was then done to verify the patient's identity, as well as the procedure being performed. I began by localizing the area in and around this large left axillary hematoma. I then made a 3 cm incision over the most fluctuant area of the hematoma. Upon entering the cavity, a large amount of old blood and clot was removed. Using the hemostat I bluntly dissected around the cavity, further evacuating hematoma. Of note, there was no active bleeding noted or active infection. Once the entire cavity was explored, it measured approximately 8 x 8 cm. I then copiously irrigated the cavity. Given the large size of the cavity, went ahead and packed the area with 1 in iodoform. Sterile dressing was then placed. The patient tolerated the procedure well and will be transferred to the recovery room in stable condition. Implants none Estimated Blood Loss 5 Drains No Packing Yes Pathology None sent Complications No immediate complications Condition Stable Disposition PACU [facility] Billing Surgery - Charge Forward: Surgery Billing
[2023-01-16] MEDS: traMADol HCL (*CRX) 50 MG TABLET PO (18:20)
[2023-01-17] MEDS: traMADol HCL (*CRX) 50 MG TABLET PO (01:27)
[2023-01-17 03:18] VITALS: BP 121/74; PULSE 68; RESP 18; TEMP 36.6; O2SAT 99
--- NOTE | 2023-01-17 06:08 | PM.PNGS ---
Progress Note: A&P Assessment and Plan (1) Hematoma of left axilla: Code(s): S40.022A - Contusion of left upper arm, initial encounter Status: Acute Assessment and Plan: s/p evacuation of hematoma, will try some different pain control regimen including Toradol and Oxycodone po, hopefully home later today Subjective Subjective Date/Time Seen: 01/17/23 06:08 c/o pain this am in L axilla Review of Systems Review of Systems: All systems reviewed & are unremarkable except as noted in HPI and below Exam Const: General: cooperative, no acute distress, tired appearing and uncomfortable Resp: Auscultation: clear to auscultation bilaterally Cardio: Rate: regular rate Rhythm: regular rhythm GI: Inspection: normal to inspection Skin: Other: L axilla - drsg C/D/I Objective Data Vital Signs Vital Signs: Vital Signs - 24 hr 01/16/23 08:48 01/16/23 08:00 01/16/23 13:48 Temperature 36.1 C L 36.1 C L Pulse Rate 80 79 67 Respiratory Rate 16 18 Blood Pressure 123/70 126/79 Pulse Oximetry 97 96 100 Oxygen Delivery Room Air Oxygen Flow Rate 01/16/23 15:08 01/16/23 16:05 01/16/23 16:20 Temperature 36.3 C L 36.6 C Pulse Rate 65 74 81 Respiratory Rate 20 14 18 Blood Pressure 119/73 125/81 122/81 Pulse Oximetry 100 100 100 Oxygen Delivery Room Air Simple Face Mask Room Air Oxygen Flow Rate 6 01/16/23 16:35 01/16/23 18:31 01/16/23 19:17 Temperature 36.1 C L 36.6 C Pulse Rate 66 61 78 Respiratory Rate 17 16 18 Blood Pressure 121/82 115/72 102/58 L Pulse Oximetry 98 97 100 Oxygen Delivery Room Air Oxygen Flow Rate 01/16/23 20:00 01/17/23 03:18 Temperature 36.6 C Pulse Rate 78 68 Respiratory Rate 18 18 Blood Pressure 121/74 Pulse Oximetry 100 99 Oxygen Delivery Room Air Oxygen Flow Rate Intake/Output Intake/Output: Intake & Output 01/14/23 01/15/23 01/16/23 01/17/23 23:59 23:59 23:59 23:59 Intake Total 1690 300 Output Total 1100 Balance 1690 -800 Meds/Results Medications: Active Medications Generic Name Dose Route Start Last Admin Trade Name Freq PRN Reason Stop Dose Admin Acetaminophen 1,000 mg in 100 mls @ 400 mls/hr 01/16/23 09:44 01/17/23 05:59 Ofirmev 1,000 Mg Ivpb IVPB 01/17/23 09:43 400 mls/hr Q6H PRN Administration Pain Rated 4-6 Morphine Sulfate 4 mg 01/16/23 01:38 01/16/23 05:42 Morphine Sulfate (*Crx) 4 Mg/Ml Inj IV PUSH 4 mg Q2H PRN Administration Pain Rated 7-10 Ondansetron HCl 4 mg 01/16/23 01:38 01/16/23 05:41 Ondansetron Inj 4 Mg/2 Ml Vial IV PUSH 4 mg Q4H PRN Administration Nausea Tramadol HCl 50 mg 01/16/23 16:43 01/17/23 01:27 Tramadol Hcl (*Crx) 50 Mg Tablet PO 50 mg Q6H PRN Administration MILD pain Radiology Results: ITS Impressions Chest CT 01/16/23 05:43 Impression: 6.0 x 4.3 x 6.0 cm hematoma at the anterior left shoulder/left axillary region. Clear lungs.
[2023-01-17] MEDS: ceFAZolin 1 GM/NS 50 ML 1 GM/50 ML BAG IVPB ×2 (06:50→14:17)
[2023-01-17] MEDS: oxyCODONE HCL (*CRX) 5 MG TAB IR PO ×3 (07:40→15:29)
--- NOTE | 2023-01-17 09:28 | WPDANESPN ---
Anes - Prog Note Post-Op Date/Time: 01/17/23 09:28 Cardiovascular status: normal Respiratory status: normal Airway patency: baseline Mental status: baseline Post-Op hydration status: normal Vital Signs: Last Vital Signs Temp 36.6 C 01/17/23 03:18 Pulse 68 01/17/23 03:18 Resp 18 01/17/23 03:18 BP 121/74 01/17/23 03:18 Pulse Ox 99 01/17/23 03:18 O2 Del Method Room Air 01/16/23 20:00 O2 Flow Rate 6 01/16/23 16:05 Pain Score (VAS): 3 I/O: Intake & Output 01/16/23 01/17/23 01/17/23 23:59 07:59 15:59 Intake Total 440 300 Output Total 1100 Balance 440 -800 Laboratory Tests 01/15/23 23:28 01/15/23 23:28 Post-procedural complaints: none Patient Feedback: Patient satisfied with anesthetic care.
--- NOTE | 2023-01-17 11:17 | PC.NURSE ---
On 01/17/23, the student, [Peng Price], provided care and completed [facility] documentation on this patient. I have reviewed the student's documentation and agree with the findings.
--- NOTE | 2023-01-17 14:00 | PM.DS ---
DS: Admitting Diagnosis Discharge Date 01/17/23 Admitting Diagnosis Hematoma of left axilla S/p excisional biopsy left axillary mass DS: Discharge Diagnosis Discharge Diagnosis (1) Hematoma of left axilla: Code(s): S40.022A - Contusion of left upper arm, initial encounter Status: Acute (2) H/O excision of mass: Code(s): Z98.890 - Other specified postprocedural states Status: Acute DS: Summary Hospital Course Reason for hospitalization: This is a 27 yo F who underwent excisional biopsy left axillary mass by Dr. Del Real on 01/14/23 as an outpatient. She initially did well and only had minor swelling at the incision. She was not even requiring any pain medication following surgery. The night of post-op day one, her [id number] daughter was sitting on her lap and accidentally hit her left axilla area when trying to get down. Almost immediately, she had pain and there was swelling that she reports was about the size of a golf ball. She came into the ER for evaluation. Workup showed CT evidence of a 6 x 4.3 x 6 cm hematoma at the anterior left shoulder/left axillary region. Labs showed a stable hemoglobin of 12.1. She was hemodynamically stable and admitted for post-op pain and hematoma of left axilla. Hospital Course: She was admitted and started on analgesics for pain. Decision was made to proceed with surgery in the OR and she underwent complex incision and drainage left axillary hematoma measuring approximately 8 x 8 cm on 01/16/[address] Del Real. No active bleeding or infection noted during surgery. She was transferred back to the medical floor and continued on IV Ancef pre and post-operatively. Her pain was poorly controlled overnight, as she felt that her pain got out of control before recieving some pain medication. Her analgesics were adjusted and she was started on oxycodone this morning. She has been receiving this during the day and doing well. Her pain has been better controlled today. She is tolerating a diet. No other complaints. Nursing is educating her mother on wound care going home. She was instructed to remove about 10 cm of packing daily over the next 5 days and plan to follow-up with Dr. Del Real next week. She will also be sent home with oral antibiotics prophylactically. Stable for discharge this afternoon. Status at Discharge Functional status at discharge: independent ambulation Overall status at discharge: patient is progressing back to baseline Time Spent with Patient Time attestation: Total time spent providing and/or coordinating discharge services: Time spent: Less than 30 minutes Exam Const: General: comfortable and no acute distress Orientation/consciousness: patient oriented x3 Chest: Other: Left axillary dressing dry and intact, not changed as the nursing is planning on removing some packing and educating her mother prior to discharge Resp: Effort & Inspection: normal respiratory effort Skin: General skin exam: normal color Neuro: General: moves all extremities and No confusion Extrem: General: normal to inspection, no calf tenderness and no edema Psych: Mental Status: mental status grossly normal Insight: Good insight present (Psych) DS: Data Procedures/Treatments: Procedures Operation Date: 01/16/23 15:00 Actual Procedure Side Surgeon p Incision and Drainage Hematoma Left Axilla Left Shabana Del Real MD Imaging Radiologist's impression: ITS Impressions Chest CT 01/16/23 05:43 Impression: 6.0 x 4.3 x 6.0 cm hematoma at the anterior left shoulder/left axillary region. Clear lungs. Discharge Plan Discharge Attending physician on discharge: Shabana Del Real Discharging Clinician: Shabana Del Real Anticipated Discharge Date/Time: 01/17/23 14:59 Patient Disposition: Home, Self-Care Activity: may shower and as tolerated Diet: as tolerated Wound Care Instructions: remove dressing to shower and other - see discharge instructions
--- NOTE | 2023-01-17 14:04 | PCCCNOTE ---
On 01/17/23, the student, [Lizzie Garcia ], provided care and completed [facility] documentation [facility] patient. I have reviewed the student's documentation and agree with the findings.
[2023-01-17 14:08] VITALS: BP 130/93; PULSE 77; RESP 14; TEMP 36.6; O2SAT 100
== END 2023-01-17 15:55 | disposition home or self-care (01) ==
LOC: ANHED 01-16 01:38 → ANH2MED 01-16 02:58
PROVIDERS: Surgery; Admitting Provider Surgery; Emergency Provider Emergency Medicine; PCP Physician Assistant; Visit Provider Nurse Practitioner Family
PROC: (CPT 10140; principal; 2023-01-16 15:00)
DX: S40.022A Contusion of left upper arm, initial encounter (principal); X58.XXXA Exposure to other specified factors, initial encounter; Y92.009 Unspecified place in unspecified non-institutional (private) residence as the place of occurrence of the external cause; Z98.890 Other specified postprocedural states; F41.9 Anxiety disorder, unspecified; E66.9 Obesity, unspecified; Z68.32 Body mass index [BMI] 32.0-32.9, adult; Z90.49 Acquired absence of other specified parts of digestive tract; F10.90 Alcohol use, unspecified, uncomplicated; Z79.891 Long term (current) use of opiate analgesic; Z79.899 Other long term (current) drug therapy
CPT/HCPCS: 10140; 36415; 71260; 80053; 85025; 85610; 85730; 96361; 96365; 96366; 96367; 96374; 96375; 96376; 99285; A9270; G0378; J0131; J0690; J2250; J2270; J2405; J2704; J3010; J7030; J7120; Q9967

== ENCOUNTER 2023-02-13 14:32 | Outpatient (RCR) | payer OTHER, SELFPAY ==
--- NOTE | 2023-02-13 21:41 | PTOPEVAL1 ---
Assessment and note entered by JT File, PT Evaluation Information Assessment Status Evaluation Diagnosis neuralgia, neuritis L arm Onset 01/16/23 Subjective Information patient reports she had 2 surgeries in her L axilla. she reports she had a mass develop and then a hematoma develop and had both removed. she reports since the 2nd surgery she has had nerve symptoms in the L arm. she reports she is having numbness in the arm into the L hand (thumb). however, she reports she also will drop objects like her phone. she reports she has been taking pain meds/gabapentin for the nerve pain. she reports she is seeing a neurologist tomorrow. she is concerned about some swelling also that she has noticed that is tender in the upper arm. she reports she is on short term disability from work and has not been driving much due to trouble with meds. 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 she reports she continues to feel she is getting worse. prior to the first surgery, she had no issues or limitations in use of the L arm/hand. she is L hand dominant. Reported Pain Level Pain Score 6: Self Report Assessment PT Clinical Summary mrs. phipps is a 27 yo woman who presents to skilled PT services for evaluation and treatment of neural symptoms in the L UE following 2 surgeries. 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 she displays signs and symptoms related to a nerve compression in the axillar from swelling and 2 operations. she would benefit from skilled PT to address her objective/ functional deficits and progress towards a return to her prior level functional activity performance and quality of life. Plan of Care Interventions Manual Therapy,Neuro Re-education,Patient/ Caregiver Educati,Therapeutic Activities, Therapeutic Exercise PT Services Indicated Yes Treatment Frequency and 2x weekly for 10 visits Duration These treatments will address the objective and functional deficits as defined above. The patient will be advanced safely and appropriately in order for the patient to progress towards his/her prior level of function. Additional exercises will be introduced and as well as a comprehensive home exercise program upon discharge, if needed, ?to ensure carryover of functional gains achieved in the clinic. This treatmen
== END 2023-02-13 23:59 | disposition home or self-care (01) ==
LOC: CHSPT 14:32
PROVIDERS: Visit Provider Surgery
DX: M79.2 Neuralgia and neuritis, unspecified (principal)
CPT/HCPCS: 97110; 97161

== ENCOUNTER 2023-02-28 07:41 | Outpatient (CLI) | payer OTHER, SELFPAY ==
--- NOTE | ~2023-02-28 | CT_ITS ---
Clinical Indication: Left axillary mass, status post surgical removal CT Scan of the Chest with Contrast: Technique: Contiguous sections were acquired throughout the chest after intravenous administration of 75 cc of Omnipaque 350. Dose reduction technique was used on this scan by utilizing automated exposu re control and iterative reconstruction technique. The dose-length product (DLP) was 277.57 mGy-cm. COMPARISON: 01/16/2023 Findings: There is no evidence of any significant mediastinal, hilar or axillary lymphadenopathy. There is no f illing defect in the pulmonary arterial tree to suggest pulmonary embolus. There is no evidence of ao rtic dissection or aneurysm. Previously noted left axillary hematoma is essentially completely resolv ed, with minimal residual skin thickening present. There is no evidence of pleural or pericardial effusion. 3 mm right lower lobe pulmonary nodule noted (axial image 62). 4 mm pleural-based left upper lobe pul monary nodule noted (axial image 33). Images through the upper abdomen reveal no abnormalities. Impression: Essentially complete interval resolution of left axillary hematoma, with mild area of residual since thickening present. Subcentimeter pulmonary nodules, as above, stable from prior exam. Reviewed, dictated and finalized at [facility]. Impression: Essentially complete interval resolution of left axillary hematoma, with mild a jonnie of residual since thickening present. Subcentimeter pulmonary nodules, as above, stable from prior exam.
== END 2023-02-28 07:42 | disposition home or self-care (01) ==
LOC: CHSIMG 07:45
PROVIDERS: PCP Physician Assistant
DX: M79.629 Pain in unspecified upper arm (principal); R91.8 Other nonspecific abnormal finding of lung field
CPT/HCPCS: 71260; Q9967

== ENCOUNTER 2025-01-29 11:12 | Outpatient (CLI) | payer OTHER, SELFPAY ==
[2025-01-29 11:31] LABS: Basophils Absolute Auto 0.02 K/mm3 (0.00-0.10); Basophils Percent Auto 0.3 % (0.0-1.0); Eosinophils Absolute Auto 0.07 K/mm3 (0.02-0.50); Eosinophils Percent Auto 1.2 % (1.0-6.0); Hematocrit 39.5 % (35.0-49.0); Immature Granulocyte Absolute 0.02 K/mm3 (0.00-0.00); Immature Granulocyte Percent A 0.3 % (0.0-0.0); Lymphocytes Absolute Auto 1.39 K/mm3 (1.10-4.50); Lymphocytes Percent Auto 23.1 % (18.0-42.0); Mean Corpuscular HGB Conc 32.9 g/dL (32-36); Mean Corpuscular Hemoglobin 28.8 pg (27.0-31.0); Mean Corpuscular Volume 87.4 fL (78.0-102.0); Mean Platelet Volume 11.1 fl (9.2-11.8); Monocytes Absolute Auto 0.26 K/mm3 (0.10-0.90); Monocytes Percent Auto 4.3 % (2.0-11.0); Neutrophils Absolute Auto 4.25 K/mm3 (1.70-7.20); Neutrophils Percent Auto 70.8 % (50.0-70.0); Platelet Count Result 218 K/mm3 (150-420); Red Blood Count 4.52 M/mm3 (4.20-5.40); Red Cell Distribution Width 11.9 % (11.6-14.4)
--- OUTSIDE RECORDS SUMMARY | 2025-01-29 11:34 | XMS_ITS | Encounter Summary ---
Author Organization [facility] Address [address] [place] [id number] Care Team Providers Care Switch Adjuster Name Role Phone Chinedu Gordillo Primary Care Provider [phone] Encounter Details Date Type Department Care Team (Late st Contact Info) Description 03/14/2019 Abstract SFL CONVERSION [address] [place] [address] , Generic Conversion, Social History Tobacco Use Types Packs/Day Years Used Date Smoking Tobacco: Never Assessed Comments Unknown Sex and Gender Information Value Date Recorded Sex Assigned at Not on file Legal Sex Female 9:02 AM CDT Gender Identity Female 06/13/2022 5:54 AM CDT Sexual Orientation Straight 06/13/2022 5: 54 AM CDT documented as of this encounter Plan of Treatment Not on file documented as of this encounter Visit Diagnoses Not on filedocumented in this encounter Care Teams Switch Adjuster Relationship Specialty Start Date End Date Chinedu Gordillo PA [address] [place] [id number] PCP - General PHYSICIAN STOCK CONTROL SUPERVISOR 02/26/19 documented as of this encounter
--- OUTSIDE RECORDS SUMMARY | 2025-01-29 11:34 | XMS_ITS | Data Portability ---
Author Organization [facility] Richard JOSEPH Address [address] [place] [address] Assessment No assessment recorded. Plan of Treatment Reminders Order Date Submit Date Provider Last Modified By Organization Details Last Modified Time Details Appointments None recorded. Lab rapid flu (A+B) 2014 015 [email or web address] In-Office Order, Internal Use Only DO Not Attach Compendium DO Not Attach Compendium, Do Not Delete/merge, [id number] 5 19:00:50 mononucleos is, heterophile Ab, blood 2014 015 [email or web address] In-Office Order, Internal Use Only DO Not Attach Compendium DO Not Attach Compendium, Do Not Delete/merge, [id number] 5 19:00:50 rapid strep group A, throat 2014 015 [email or web address] In-Office Order, Internal Use Only DO Not Attach Compendium DO Not Attach Compendium, Do Not Delete/merge, [id number] 5 19:00:50 H pylori Ab, serum 2013 014 swilliams 95 In-Office Order, Internal Use Only DO Not Attach Compendium DO Not Attach Compendium, Do Not Delete/merge, [id number] 4 13:46:53 urinalysis, dipstick 2013 014 [email or web address] 95 In-Office Order, Internal Use Only DO Not Attach Compendium DO Not Attach Compendium, Do Not Delete/merge, [id number] 4 13:46:53 test, urine 2013 014 swilliams 95 In-Office Order, Internal Use Only DO Not Attach Compendium DO Not Attach Compendium, Do Not Delete/merge, [id number] 4 13:46:53 ESR (erythrocyt e sedimentati on rate), blood 2013 JOSE ALEJANDROSnapflow [facility], [address], [address], [place], [address], 4 11:21:17 RAVINDER (antinuclea r antibodies) screen, serum 2013 JOSE ALEJANDROSnapflow [facility], [address], [address], [place], [address], 4 11:21:20 rf (rheumatoid factor), serum 2013 JOSE ALEJANDROSnapflow [facility], [address], [address], [place], [address], 4 11:21:19 test, urine 2013 JOSE ALEJANDRO In-Office Order, Internal Use Only DO Not Attach Compendium DO Not Attach Compendium, Do Not Delete/merge, [id number] 4 16:06:16 CBC w/ auto diff 2013 JOSE ALEJANDROSnapflow [facility], [address], [address], [place], [address], 4 11:21:16 CMP, serum or plasma 2013 JOSE ALEJANDROSnapflow [facility], [address], [address], [place], [address], 4 11:21:14 Referral None recorded. Procedures pulse oximetry (PROC) 2014 015 [email or web address] In-Office Order, Internal Use Only DO Not Attach Compendium DO Not Attach Compendium, Do Not Delete/merge, [id number] 5 19:00:50 pulse oximetry (PROC) 2013 [facility]14 [facility] Order, Internal Use Only DO Not Attach Compendium DO Not Attach Compendium, Do Not Delete/merge, [id number] 4 13:46:53 Surgeries None recorded. Imaging None recorded. Medication Orders Zyrtec 10 mg tablet 2014 015 [id number], [address] [place], [address], 5 19:00:50 promethazin e 6.25 mg-codeine 10 mg/5 mL syrup 2014 015 [facility], [address] [place] [address], [address], 5 19:00:51 Cipro 500 mg tablet 2014 015 [facility], [address] [place], [address], 5 19:00:50 pseudoephed rine 30 mg tablet 2014 015 [facility], [address] [place], [address], 5 19:00:51 prednisone 10 mg tablet 2014 015 [facility], [address] [place], [address], 5 19:00:51 Zofran 8 mg tablet [address] [facility], [address] [place] [address], [address], 4 13:46:54 Cipro 250 mg tablet 2013 [address] [facility] [address] [facility], [address] [place] [address], [address], 4 13:46:53 Patient TargetsNo targets recorded. Patient Instructions Encounter Date Encounter Id Patient Instructions Last Modified By Organization Details Last Modified Time 08/02/2014 [id number] F/U in 1 week fo r lab review.Please take medications as instructed. Please follow up with your PCM in 2-3 days for follow up care should you have new or worsening symptoms, or a temp. of 101.5 or > please return to the office for further evaluation/care. [email or web address] Not available 08/02/2014 13:46:54 Pt is in agreement with the plan of care as discussed today. Feel she has the GI virus with N/V that is prevalent in [facility] at this time, has hyeractive BS and Diarrhea, supportive care, labs drawn for establish care and will f/u for back pain c/o. I am concerned about her protienuria and treated for uti, but Mom says pt has had elevated protien before. Not available 08/02/2014 13:46:54 Reason for Referral None Reported. Results Created Date Observation Date Name Description Value Unit Range Abnormal Flag Note LastModifiedBy Organization Detail LastModifiedTime 06/23/20 15 06/23/2015 rapid strep group A, throa t Strep negati ve Not Available In-Office Order Internal Use Only DO Not Attach Compendium DO Not Attach Compendium, Do Not Delete/merge, [id number] 06/23/2015 14:30:56 06/23/2006/23/2015 rapid flu (A+B) Flu A negati ve Not Available In-Office Order Internal Use Only DO Not Attach Compendium DO Not Attach Compendium, Do Not Delete/merge, [id number] 06/23/2015 14:30:56 06/23/2006/23/2015 rapid flu (A+B) Flu B negati ve Not Available In-Office Order Internal Use Only DO Not Attach Compendium DO Not Attach Compendium, Do Not Delete/merge, [id number] 06/23/2015 14:30:56 06/23/2006/23/2015 monon ucleo sis, heter ophil e Ab, blood Sibley negati ve Not Available In-Office Order Internal Use Only DO Not Attach Compendium DO Not Attach Compendium, Do Not Delete/merge, [id number] 06/23/2015 14:30:56 06/23/20 15 06/23/2015 pulse oxime try (PROC ) pulse oximetry 97% room air Not Available In-Office Order Internal Use Only DO Not Attach Compendium DO Not Attach Compendium, Do Not Delete/merge, [id number] 06/23/2015 14:30:55 08/02/20 14 08/02/2014 pregn lazarus test, urine HCG negati ve Not Available In-Office Order Internal Use Only DO Not Attach Compendium DO Not Attach Compendium, Do Not Delete/merge, [id number] 08/02/2014 11:30:54 08/02/20 14 08/02/2014 pregn lazarus test, urine HCG negati ve Not Available In-Office Order Internal Use Only DO Not Attach Compendium DO Not Attach Compendium, Do Not Delete/merge, [id number] 08/02/2014 11:30:02 08/02/20 14 08/02/2014 H pylor i Ab, serum H. pylori negati ve Not Available In-Office Order Internal Use Only DO Not Attach Compendium DO Not Attach Compendium, Do Not Delete/merge, [id number] 08/02/2014 10:59:15 08/02/20 14 08/02/2014 urina lysis , dipst ick Leukocytes Negati ve Not Available In-Office Order Internal Use Only DO Not Attach Compendium DO Not Attach Compendium, Do Not Delete/merge, [id number] 08/02/2014 10:59:14 08/02/20 14 08/02/2014 urina lysis , dipst ick Nitrite negati ve Not Available In-Office Order Internal Use Only DO Not Attach Compendium DO Not Attach Compendium, Do Not Delete/merge, [id number] 08/02/2014 10:59:14 08/02/20 14 08/02/2014 urina lysis , dipst ick Urobilinogen .2 Not Available In-Of fice Order Internal Use Only DO Not Attach Compendium DO Not Attach Compendium, Do Not Delete/merge, [id number] 08/02/2014 10:59:14 08/02/20 14 08/02/2014 urina lysis , dipst ick Protein 30 Not Available In-Office Order Internal Use Only DO Not Attach Compendium DO Not Attach Compendium, Do Not Delete/merge, [id number] 08/02/2014 10:59:14 08/02/20 14 08/02/2014 urina lysis , dipst ick pH 5.0 Not Available In-Office Order Internal Use Only DO Not Attach Compendium DO Not Attach Compendium, Do Not Delete/merge, [id number] 08/02/2014 10:59:14 08/02/20 14 08/02/2014 urina lysis , dipst ick Blood Negati ve Not Available In-Office Order Internal Use Only DO Not Attach Compendium DO Not Attach Compendium, Do Not Delete/merge, [id number] 08/02/2014 10:59:14 08/02/20 14 08/02/2014 urina lysis , dipst ick Specific Morral 1.030 Not Available In-Off ice Order Internal Use Only DO Not Attach Compendium DO Not Attach Compendium, Do Not Delete/merge, [id number] 08/02/2014 10:59:14 08/02/20 14 08/02/2014 urina lysis , dipst ick Ketone Negati ve Not Available In-Office Order Internal Use Only DO Not Attach Compendium DO Not Attach Compendium, Do Not Delete/merge, [id number] 08/02/2014 10:59:14 08/02/20 14 08/02/2014 urina lysis , dipst ick Bilirubin Small Not Available In-Offic e Order Internal Use Only DO Not Attach Compendium DO Not Attach Compendium, Do Not Delete/merge, [id number] 08/02/2014 10:59:14 08/02/20 14 08/02/2014 urina lysis , dipst ick Glucose Negati ve Not Available In-Office Order Internal Use Only DO Not Attach Compendium DO Not Attach Compendium, Do Not Delete/merge, [id number] 08/02/2014 10:59:14 08/02/20 14 08/02/2014 pulse oxime try (PROC ) pulse oximetry 100% room air Not Available In-Office Order Internal Use Only DO Not Attach Compendium DO Not Attach Compendium, Do Not Delete/merge, [id number] 08/02/2014 10:45:38 08/02/20 14 08/03/2014 CMP, serum or plasm a sodium 139 mEq/L 135-14 5 normal Not Available [facility] [address] [place], [address], 08/03/2014 11:21:14 08/02/20 14 08/03/2014 CMP, serum or plasm a potassium 3.7 mEq/L 3.5-5. 3 normal Not Available [facility] [place] [address] [place], [address], 08/03/2014 11:21:14 08/02/20 14 08/03/2014 CMP, serum or plasm a chloride 103 mEq/L 96-112 normal Not Available [facility] [place] [address] [place], [address], 08/03/2014 11:21:14 08/02/20 14 08/03/2014 CMP, serum or plasm a CO2 24 mEq/L 19-32 normal Not Available [facility] [address] [place], [address], 08/03/2014 11:21:14 08/02/20 14 08/03/2014 CMP, serum or plasm a glucose 97 mg/dL 70-99 normal Not Available [facility] [place] [address] [place], [address], 08/03/2014 11:21:14 08/02/20 14 08/03/2014 CMP, serum or plasm a BUN 13 mg/dL 6-23 normal Not Available [facility] [address] [place], [address], 08/03/2014 11:21:14 08/02/20 14 08/03/2014 CMP, serum or plasm a creatinine 0.66 mg/dL 0.50-1 .10 normal Not Available [facility] [place] [address] [place], [address], 08/03/2014 11:21:14 08/02/20 14 08/03/2014 CMP, serum or plasm a bilirubin, total 1.3 mg/dL 0.3-1. 2 high Not Available [facility] [place] [address] [place], [address], 08/03/2014 11:21:14 08/02/20 14 08/03/2014 CMP, serum or plasm a alkaline phosphatase 46 U/L 39-117 normal Not Available [facility] [place] [address] [place], [address], 08/03/2014 11:21:14 08/02/20 14 08/03/2014 CMP, serum or plasm a AST/SGOT 16 U/L 0-37 normal Not Available [facility] [address] [place], [address], 08/03/2014 11:21:14 08/02/20 14 08/03/2014 CMP, serum or plasm a ALT/SGPT 15 U/L 0-35 normal Not Available [facility] [address] [place], [address], 08/03/2014 11:21:14 08/02/20 14 08/03/2014 CMP, serum or plasm a total protein 7.3 g/dL 6.0-8. 3 normal Not Available [facility] [address] [place], [address], 08/03/2014 11:21:14 08/02/20 14 08/03/2014 CMP, serum or plasm a albumin 4.6 g/dL 3.5-5. 2 normal Not Available [facility] [address] [place], [address], 08/03/2014 11:21:14 08/02/20 14 08/03/2014 CMP, serum or plasm a calcium 9.0 mg/dL 8.4-10 .5 normal Not Available [facility] [address] [place], [address], 08/03/2014 11:21:14 08/02/20 14 08/03/2014 CMP, serum or plasm a est GFR, >89 mL/mi n normal Not Available [facility] [place] [address] [place], [address], 08/03/2014 11:21:14 08/02/20 14 08/03/2014 CMP, serum or plasm a est GFR, nonafrican bhutanese >89 mL/mi n normal The estim ated GFR is a calcu latio n valid for adult s (>=18 years old) that uses the CKD-E PI algor ithm to adjus t for age and sex. It is not to be used for child lorena, pregn ant women , hospi taliz ed patie nts, patie nts on dialy sis, or with rapid ly cooper ing kidne y funct ion. Accor ding to the NKDEP , eGFR >89 is lizbet l, 60-89 shows mild impai rment , 30-59 shows moder ate impai rment , 15-29 shows sever e impai rment and <15 is ESRD. Not Available [facility] [address] [place], [address], 08/03/2014 11:21:14 08/02/20 14 08/03/2014 thyro id panel T4 13.1 ug/dL 5.0-12 .5 high Not Available [facility] [address] [place], [address], 08/03/2014 11:21:15 08/02/20 14 08/03/2014 thyro id panel T3 uptake 25.1 % 22.5-3 7.0 normal Not Available [facility] [place] [address] [facility] [place], [address], 08/03/2014 11:21:15 08/02/20 14 08/03/2014 thyro id panel free thyroxine index 3.3 1.0-3. 9 normal Not Available [facility] [place] [address] [place], [address], 08/03/2014 11:21:15 08/02/20 14 08/03/2014 thyro id panel TSH 1.595 uIU/m L 0.350- 4.500 normal Not Available [facility] [place] [address] [facility], [address], 08/03/2014 11:21:15 08/02/20 14 08/03/2014 CBC w/ auto diff WBC 6.0 K/uL 4.0-10 .5 normal Not Available [facility] [place] [address] [place], [address], 08/03/2014 11:21:16 08/02/20 14 08/03/2014 CBC w/ auto diff RBC 4.98 mil/u L 3.87-5 .11 normal Not Available [facility] [place] [address] [place], [address], 08/03/2014 11:21:16 08/02/20 14 08/03/2014 CBC w/ auto diff hemoglobin 15.2 g/dL 12.0-1 5.0 high Not Available [facility] [place] [address] [place], [address], 08/03/2014 11:21:16 08/02/20 14 08/03/2014 CBC w/ auto diff hematocrit 43.1 % 36.0-4 6.0 normal Not Available [facility] [place] [address] [place], [address], 08/03/2014 11:21:16 08/02/20 14 08/03/2014 CBC w/ auto diff MCV 86.5 fL 78.0-1 00.0 normal Not Available [facility] [place] [address] [place], [address], 08/03/2014 11:21:16 08/02/20 14 08/03/2014 CBC w/ auto diff MCH 30.5 pg 26.0-3 4.0 normal Not Available [facility] [place] [address] [place], [address], 08/03/2014 11:21:16 08/02/20 14 08/03/2014 CBC w/ auto diff MCHC 35.3 g/dL 30.0-3 6.0 normal Not Available [facility] [place] [address] [place], [address], 08/03/2014 11:21:16 08/02/20 14 08/03/2014 CBC w/ auto diff RDW 12.8 % 11.5-1 5.5 normal Not Available [facility] [address] [place], [address], 08/03/2014 11:21:16 08/02/20 14 08/03/2014 CBC w/ auto diff platelet count 200 K/uL 150-40 0 normal Not Available [facility] [address] [place], [address], 08/03/2014 11:21:16 08/02/20 14 08/03/2014 CBC w/ auto diff granulocyte % 81 % 43-77 high Not Available [facility] [address] [place], [address], 08/03/2014 11:21:16 08/02/20 14 08/03/2014 CBC w/ auto diff absolute gran 4.8 K/uL 1.7-7. 7 normal Not Available [facility] [address] [place], [address], 08/03/2014 11:21:16 08/02/20 14 08/03/2014 CBC w/ auto diff lymph % 10 % 12-46 low Not Available [facility] [address] [place], [address], 08/03/2014 11:21:16 08/02/20 14 08/03/2014 CBC w/ auto diff absolute lymph 0.6 K/uL 0.7-4. 0 low Not Available [facility] [address] [place], [address], 08/03/2014 11:21:16 08/02/20 14 08/03/2014 CBC w/ auto diff mono % 9 % 3-12 normal Not Available [facility] [address] [place], [address], 08/03/2014 11:21:16 08/02/20 14 08/03/2014 CBC w/ auto diff absolute mono 0.5 K/uL 0.1-1. 0 normal Not Available [facility] [place] [address] [place], [address], 08/03/2014 11:21:16 08/02/20 14 08/03/2014 CBC w/ auto diff eos % 0 % 0-5 normal Not Available [facility] [place] [address] [place], [address], 08/03/2014 11:21:16 08/02/20 14 08/03/2014 CBC w/ auto diff absolute eos 0.0 K/uL 0.0-0. 7 normal Not Available [facility] [place] [address] [place], [address], 08/03/2014 11:21:16 08/02/20 14 08/03/2014 CBC w/ auto diff baso % 0 % 0-1 normal Not Available [facility] [place] [address] [place], [address], 08/03/2014 11:21:16 08/02/20 14 08/03/2014 CBC w/ auto diff absolute baso 0.0 K/uL 0.0-0. 1 normal Not Available [facility] [place] [address] [place], [address], 08/03/2014 11:21:16 08/02/20 14 08/03/2014 CBC w/ auto diff smear review Criter ia for review not met normal Not Available [facility] [place] [address] [place], [address], 08/03/2014 11:21:16 08/02/20 14 08/03/2014 ESR (eryt hrocy te sedim entat ion rate) , blood sed rate (ESR) 5 mm/HR 0-22 normal Not Available [facility] [place] [address] [place], [address], 08/03/2014 11:21:17 08/02/20 14 08/03/2014 lipid panel , serum cholesterol 180 mg/dL 0-200 normal Not Available [facility] [place] [address] [place], [address], 08/03/2014 11:21:17 08/02/20 14 08/03/2014 lipid panel , serum triglyceride 91 mg/dL <150 normal Not Available [facility] [place] [address] [facility] [place], [address], 08/03/2014 11:21:17 08/02/20 14 08/03/2014 lipid panel , serum HDL cholesterol 50 mg/dL >39 normal Not Available [facility] [address] [place], [address], 08/03/2014 11:21:17 08/02/20 14 08/03/2014 lipid panel , serum total chol/HDL ratio 3.6 ratio normal Not Available [facility] [address] [place], [address], 08/03/2014 11:21:17 08/02/20 14 08/03/2014 lipid panel , serum LDL, direct 121 mg/dL high ATP III Class ifica tion (LDL) : < 100 mg/dL Optim al 100 - 129 mg/dL Near or Above Optim al 130 - 159 mg/dL Borde rline High 160 - 189 mg/dL High > 190 mg/dL Very High Not Available [facility] [address] [place], [address], 08/03/2014 11:21:17 08/02/20 14 08/03/2014 lipid panel , serum LDL:HDL ratio 2.4 ratio normal LDL/H DL Ratio Table Men Women 1/2 [place] ge Risk 1.0 1.5 [place] Risk 3.6 3.2 2 X [place] ge Risk 6.3 5.0 3 X [place] ge Risk 8.0 6.1 [Soheila sandoval WB, Coty reed WP, and [place] aragon T, Lilia Int Med, 1979, 90:85 ] Not Available [facility] [address] [place], [address], 08/03/2014 11:21:17 08/02/20 14 08/03/2014 HbA1c (hemo globi n A1c), blood hemoglobin A1C 5.3 % <5.7 normal Accor ding to the ADA Clini abel Pract ice Recom menda tions for 2010, when HbA1c is used as a scree marie test: >=6.5 % Diagn ostic of Diabe alfred Melli tus (if abnor mal resul t is confi rmed) 5.7-6 .4% Incre ased risk of devel oping Diabe alfred Melli tus Refer ences :Diag nosis and Class ifica tion of Diabe alfred Charlai tus,D iabet es Care, 2010, (Matias ppl 1):S6 2-S69 and Stand ards of Medic al Care in Diabe alfred - 2010, Diabe alfred Care, (Supp l 1):S1 1-S61 . Not Available [facility] [address] [facility] [place], [address], 08/03/2014 11:21:18 08/02/20 14 08/03/2014 HbA1c (hemo globi n A1c), blood estimated average glucose 105 mg/dL <117 normal Not Available [facility] [address] [facility] [place], [address], 08/03/2014 11:21:18 08/02/20 14 08/03/2014 rf (rheu matoi d facto r), serum rheumatoid factor (rf) <10 IU/mL <=14 normal Inter preti ve Table Low Posit sherrie: 15 - 41 IU/mL High Posit sherrie: >= 42 IU/mL In addit ion to the RF resul t, and clini abel sympt oms inclu ding joint invol vemen t, the 2010 ACR Class ifica tion Crite sonny for scori ng/di agnos ing Rheum atoid Arthr itis inclu de the resul ts of the follo wing tests : CRP (2386 0), ESR (1501 0), and CCP (APCA ) (8225 5). www.r dirk tolog y.org /prac paola/ clini abel/c lassi ficat ion/r a/ra_ 2009. asp Not Available [facility] [address] [facility] [place], [address], 08/03/2014 11:21:19 08/02/20 14 08/03/2014 RAVINDER (anti nucle ar antib odies ) aleee n, serum anti nuclear antibody (RAVINDER) NEG negati ve normal Not Available [facility] [address] [facility] [place], [address], 08/03/2014 11:21:20 08/02/20 14 08/03/2014 micro album in, urine microalbumin 2.43 mg/dL 0.00-1 .89 high Not Available [facility] [address] [facility] [place], [address], 08/03/2014 11:21:21 Result Notes None recorded. Problems Name Problem SNOMED Code Status Onset Date Resolution Date Notes Provider Name and Address Organization Details Recorded Time Abdominal pain 84038452 Active Inge Por[place] [facility] 4 13:46:53 Fatigue 03081164 Active [place] [facility] 4 13:46:53 Diarrhea 35974279 Active Inge [place] [facility] 4 13:46:53 Low back pain 351078271 Active Inge [place] [facility] 4 13:46:53 Nausea 363747494 Active In[place] [facility] 4 13:46:53 Vomiting 947766959 Active In[place] [facility] 4 13:46:53 Proteinuria 87957314 Active Inge [place] [facility] 4 13:46:53 Acute sinusitis 63349824 Active Judy Rosa [place] - [facility] 5 19:00:50 Allergic rhinitis 55284747 Active Judy Rosa [place] [facility] 5 19:00:50 Cough 24807886 Active Judy Rosa [place] [facility] 5 19:00:50 Problem Notes None recorded. Procedures Surgical History Date Name Laterality Status Provider Name and Address Organization Details Recorded Time 08/07/20 13 Date of Last Pap Smear completed Luca Pal [place] - [facility] 08/02/2014 10:45:37 10/07/19 06 Tonsillectomy completed [facility] 08/02/2014 10:45:36 Imaging Results None recorded. Procedure Notes None recorded. Medical Equipment None Reported. Allergies Allergen ID Allergen Name Allergen Category Reaction Reaction Severity Criticality Documentation Date Start Date Code Code System Note Provider Name and Address Organization Details Recorded Time 95566 Product containin g penicilli n (product) medicatio n hives severe Not available 08/02/2014 69661 8001 SNOMED Not Available Not Available Not Available Medications Name Sig Start Date Stop Date Status Note LastModified by Organization Details LastModified Time prednisone 10 mg tablet Take 3 tabs q am x 3 days, then 2 tabs q am x 3 2014 active Not Available Not Available Not Avai lable cetirizine 10 mg tablet TAKE 1 TABLET BY MOUTH EVERY DAY 2014 active Not Available Not Available Not Avai lable promethazine 6.25 mg-codeine 10 mg/5 mL syrup Take 5 mL every 6 hours by oral route as needed. 2014 active Not Available Not Available Not Avai lable Zofran 8 mg tablet Take 1 tablet every 8 hours by oral route for 3 days. 2013 active Not Available Not Available Not Avai lable Cipro 500 mg tablet Take 1 tablet every 12 hours by oral route for 10 days. 2014 active Not Available Not Available Not Avai lable pseudoephedr ine 30 mg tablet Take 2 tablets every 6 hours by oral route as needed. 2014 active Not Available Not Available Not Avai lable Cipro 250 mg tablet Take 1 tablet every 12 hours by oral route for 5 days. 08/07 completed Not Available Not Available Not Available hydrocodone 2.5 mg-acetamino phen 325 mg tablet Take 1 tablet every day by oral route as needed. active Not Available Not Available No t Available Vitals Date Recorded Body height Body weight Heart rate Body temperature Body mass index (BMI) Oxygen saturation Oxygen saturation in Arterial blood by Pulse oximetry Respiratory rate Systolic blood pressure Diastolic blood pressure Provider Name and Address Organization Details Last Updated DateTime 4 165.1 cm 68821.0 7839 g 107 /min 98.6 [degF] 24.5 kg/m2 100 % 100 % 17 /min 122 mm[Hg] 81 mm[Hg] Luca Pal [facility] 4 10:45:37 Date Recorded Body height Body weight Heart rate Body temperature Body mass index (BMI) Oxygen saturation Oxygen saturation in Arterial blood by Pulse oximetry Respiratory rate Systolic blood pressure Diastolic blood pressure Provider Name and Address Organization Details Last Updated DateTime 5 165.1 cm 08646.5 2417 g 80 /min 98.2 [degF] 23.5 kg/m2 97 % 97 % 18 /min 109 mm[Hg] 75 mm[Hg] Nathalia [facility] [place] - [facility] 5 14:30:55 Social History Question Answer Notes LastModified by Organizat ion Details LastModified Time Tobacco Smoking Status Never Smoker Luca Pal [facility] 08/02/2014 10:45:36 Do You Have An Advance Directive? No Information not available 08/02/2014 What Is Your Level Of Alcohol Consumption? Occasional Information not available 08/02/2014 Auto Related Injury? No Information not available 08/02/2014 Are You Blind Or Do You Have Difficulty Seeing? No Corrected Vision Information not available 08/02/2014 What Is Your Level Of Caffeine Consumption? Occasional Information not available 08/02/2014 How Much Tobacco Do You Chew? None Information not available 08/02/2014 Are You Currently Employed? Yes Information not available 08/02/2014 Are You Deaf Or Do You Have Serious Difficulty Hearing? No Information not available 08/02/2014 What Type Of Diet Are You Following? REGULAR Information not available 08/02/2014 Which Illicit Or Recreational Drugs Have You Used? None Information not available 08/02/2014 Have You Directly Handled Bats, Rodents, Or Primates From Ebola Endemic Areas? No Information not available 08/02/2014 Have You Had Contact With Blood, Bodily Fluids, Or Human Remains Of A Patient Known To Have Or Suspected To Have Ebola Virus Disease? No Information not available 08/02/2014 Do You Reside In Or Have You Traveled To An Area Where Ebola Virus Transmission Is Active? 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 No Information not available 08/02/2014 Marital Status nima Aguilar n not available 08/02/2014 Performs Monthly Self-breast Exam? No Information not available 08/02/2014 How Much Tobacco Do You Smoke? No Information not available 08/02/2014 General Stress Level Medium Information not available 08/02/2014 How Many Years Have You Smoked Tobacco? 0 Information not available 08/02/2014 Sex: Unknown Functional Status Question Answer Note LastModified by Organizat ion Details LastModified Time Are you able to care for yourself? No Information not available 08/02/2014 What is your exercise level? Occasional Information not available 08/02/2014 Mental Status None recorded. Family History Nothing Reported. Medical History Condition Response Coronary Artery Disease N Gout N Kidney Stones N Ear or Hearing Problems N Hyperthyroidism N ADD or ADHD N Thyroid Problems N Depression N COPD N Hypothyroidism N Developmental or Behavioral Disorders N Skin Problems N Anemia N Constipation N Eczema, Hives or other skin conditions N Anxiety Disorder N Diabetes N Muscle, Joint, or Bone Problems N Vision or Eye Problems N Arthritis N Seizures/Epilepsy N Tuberculosis N Congenital Anomalies N Cancer N Stroke N Diverticulitis N Asthma N Allergies N Bladder or Kidney Problems N GERD/Reflux N High Cholesterol N Liver Disease N Heart Disease N Pulmonary Embolism N Fibromyalgia N Hypertension N Osteoporosis N Kidney Disease N Gynecological History Statement/Question Response Flow Moderate Date of LMP 07/06/2014 Post Menopausal Bleeding N STIs/STDs Y Most Recent Mammogram If Post Menopausal, Age at Menopause Date of Last Colonoscopy Desired Control Method BCPs Abnormal Pap N On BCP's at Conception? N HPV Vaccine Y Duration of Flow (days) 4 Age at Menarche Current Control Method BCPs Age at First Child Frequency of Cycle (Q days) 28 Most Recent Bone Density Sexually Active? Y Menses Monthly Y Date of Last Pap Smear 08/07/2013 Sexual Problems? N LMP Definite Hormone Replacement Therapy Y Obstetrics History GPAL:G 0 P 0 0 0 0 Past Encounters Encounter ID Performer Location Encounter Start Date Encounter Closed Date Diagnosis/Indication Diagnosis SNOMED-CT Code Diagnosis ICD10 Code Diagnosis Note [id number] Judy Natarajan [facility] [address] [place] [address] 08/02/2014 10:18:24 08/02/2014 13:58:50 Abdominal pain 97719539 Fatigue 99810707 Diarrhea 45377593 Low back pain 374124195 Nausea 741605318 Vomiting 123734886 Proteinuria [id number] Judy Natarajan [facility] [address] [facility] [address] [place] [address] 06/23/2015 14:07:00 06/23/2015 15:15:45 Acute sinusitis 99226458 Allergic rhinitis 65351500 Cough [id number] Health Concerns Section Related Observation LastModified by Organization Detai ls LastModified Time None Recorded Concern Status LastModified by Organization Details LastModified Time None Recorded Advance Directives Directive N: Payers Encounter Date Sequence Insurance Name Policy Number Policy Burris Covered Member ID Burris Member ID Guarantor Name 08/02/2014 1 [facility] Dony Pain[employer] [id number] Amy Painting 06/23/2015 1 [facility] Dony Painting [id number] Amyarmida Painting OBGyn Episode No OBEpisode recorded.
--- OUTSIDE RECORDS SUMMARY | 2025-01-29 11:34 | XMS_ITS | Clinical Summary ---
Author Organization [facility] Address [address] [place] [id number] Care Team Providers Care Clinical Document Improvement Educator Name Role Phone Chinedu Gordillo Primary Care Provider [phone] Allergies Active Allergy Reactions Criticality Noted Date Comments Hydrocodone Blurred vision,Dizziness,Fatigue,Unknown 07/29/2018 Levofloxacin Blurred vision,Dizziness,Hives,Itching,Nausea Only,Rash,Shortness of Breath High 12/14/2020 Penicillins Hives,Itching,Rash,Unknown Low 07/18/20 18 Medications buPROPion XL (WELLBUTRIN XL) 300 MG 24 hr tablet Take by mouth daily. Active phentermine-topi ramate (QSYMIA) 15-92 MG 24 hr capsule Take 1 capsule by mouth daily. Active valACYclovir (VALTREX) 500 MG tablet Take 500 mg by mouth daily. 06/12/2022 Active meloxicam (MOBIC) 15 MG tabletIndication s:Patellar instability of right knee Take 1 tablet (15 mg total) by mouth daily. 30 tablet 2 06/28/2022 Active phentermine (ADIPEX-P) 37.5 MG tablet Take 37.5 mg by mouth daily. 06/25/2022 Active Active Problems Problem Noted Date Diagnosed Date Loose body of right knee 06/14/2022 Patellar instability of right knee 06/14/2022 Family History Medical History Relation Comments Diabetes Maternal Grandfather Vision loss Maternal Grandfather COPD Maternal Grandmother Hypertension Maternal Grandmother Relation Status Comments Maternal Grandfather Maternal Grandmother Social History Tobacco Use Types Packs/Day Years Used Date Smoking Tobacco: Never Smokeless Tobacco: Never Alcohol Use Standard Drinks/Week Comments Not Currently 0 (1 standard drink = 0.6 oz pur e alcohol) Comments Unknown Sex and Gender Information Value Date Recorded Sex Assigned at Not on file Legal Sex Female 9:02 AM CDT Gender Identity Female 06/13/2022 5:54 AM CDT Sexual Orientation Straight 06/13/2022 5: 54 AM CDT Last Filed Vital Signs Vital Sign Reading Time Taken Comments Blood Pressure 103/75 07/08/2022 9:30 PM CDT Pulse 84 07/08/2022 8:15 PM CDT Temperature 36.8 C (98.2 F) 07/08/2022 8:15 PM CDT Respiratory Rate 16 07/08/2022 8:15 PM CDT Oxygen Saturation 100% 07/08/2022 9:30 PM CDT Inhaled Oxygen Concentration - - Weight 77.1 kg (170 lb) 07/08/2022 8:15 PM CDT Height 162.6 cm (5' 4 ) 07/08/2022 8:15 PM CDT Body Mass Index 29.18 07/08/2022 8:15 PM CDT Plan of Treatment Health Maintenance Due Date Last Done Comments Cervical Cancer Screening Pap Smear (Age 30 to 64) Every 3 Years 1993 Annual Physical 1996 Hepatitis C 2011 Cervical Cancer Screening Pap with HPV Testing (Age 30 to 64) Every 5 Years 2023 Cervical Cancer Screening with HPV 2023 COVID-19 Vaccine ( season) 2024 06/26/2021 DTaP, Tdap and Td Vaccines (7 - Td or Tdap) 06/06/2031 06/06/2021, 05/07/2008, 07/22/1998, Additional history exists Hepatitis B Vaccines Completed 1993, 1993, 1993 Meningococcal Vaccine Aged Out 05/07/2008 No tiffanie rachell eligible based on patient's age to complete this topic HPV Vaccines Completed 11/30/2008, 07/08, 05/07/2008 Meningococcal B Vaccine Aged Out No l onger eligible based on patient's age to complete this topic Pneumococcal Vaccine: Pediatrics (0 to 5 Years) and At-Risk Patients (6 to 49 Years) Aged Out No longer eligible based on patient's age to complete this topic RSV Immunizations Under 20 Months Aged Out No longer eligible based on patient's age to complete this topic [place] [place] [address] AETNA MEDICAID AETNA Care Teams Clinical Document Improvement Educator Relationship Specialty Start Date End Date Chinedu Gordillo PA [address] [place] [phone] 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
--- OUTSIDE RECORDS SUMMARY | 2025-01-29 11:34 | XMS_ITS | Patient Health Record ---
Author Organization Formerly [facility] Address [address] [place] [address] Care Team Providers Care Real Estate Director Name Role Phone Dr. Keo Vargas Primary Care Provider [phone] Dr. Hortencia Tolbert Unavailable [phone] Bull Kapoor Unavailable [phone] Hortencia Araiza Unavailable [phone] Migration, Provider Unavailable Unavailable Results Component Value Reference Range Notes Adrenocorticotropic Hormone [ACTH]-ARUP Reviewed date:03/15/2024 12:00:00 AM Interpretation: Performing Lab: Notes/Report: Adrenocort See Below CBC w/ Diff Reviewed date:03/15/2024 12:00:00 AM Interpretation: Performing Lab: Notes/Report: Basophil Auto 0.3 % Eos Absolute 0.1 x10*3/mcL Eosinophil Auto 1.1 % Hct 38.9 % Hgb 13.1 g/dL Lymph Absolute 1.8 x10*3/mcL Lymph Auto 27.3 % MCH 29.1 pg MCHC 33.7 g/dL MCV 86.4 fL Gray Absolute 0.5 x10*3/mcL Gray Auto 7.5 % MPV 10.6 fL Neutro Absolute 4.2 x10*3/mcL Neutro Auto 63.8 % Platelets 217 K/mcL RBC 4.50 x10*6/mcL RDW 13.4 % WBC 6.6 K/mcL Comprehensive Metabolic Pane l Reviewed date:03/15/2024 12:00:00 AM Interpretation: Performing Lab: Notes/Report: Albumin Lvl 4.4 g/dL Albumin/Globulin Ratio 2.0 Alk Phos 47 unit/L ALT 9 unit/L ANION GAP 5.7 mmol/L AST 11 unit/L Bilirubin Total 1.0 mg/dL BUN 10 mg/dL Calcium Lvl 9.3 mg/dL Chloride Lvl 105 mmol/L CO2 28 mmol/L Creatinine Lvl 0.71 mg/dL eGFR CKD-EPI >90 mL/min/1.73 m2 Glucose Lvl 84 mg/dL Potassium Lvl 3.9 mmol/L Protein Total 6.6 g/dL Sodium Lvl 139 mmol/L Cortisol Reviewed date:03/15/2024 12:00:00 AM Interpretation: Performing Lab: Notes/Report: Cortisol 9.4 mcg/dL Follicle Stimulating Hormone Level Reviewed date:03/15/2024 12:00:00 AM Interpretation: Performing Lab: Notes/Report: FSH 20.5 mIU/mL IGF 1-[facility] Reviewed date:03/15/2024 12:00:00 AM Interpretation: Performing Lab: Notes/Report: IGF-1 See Below IH Urinalysis Reviewed date:03/12/2024 12:00:00 AM Interpretation: Performing Lab: Notes/Report: Bilirubin Moderate Blood Negative Glucose Negative Ketone Trace Leukcoytes Negative Nitrite Negative pH 5.0 Protein Trace Specific Angier 1.010 Urobilinogen 0.2 Luteinizing Hormone Reviewed date:03/15/2024 12:00:00 AM Interpretation: Performing Lab: Notes/Report: LH 67.9 mIU/mL Prolactin Reviewed date:03/15/2024 12:00:00 AM Interpretation: Performing Lab: Notes/Report: Prolactin 13.74 ng/mL Thyroid Stimulating Hormone Reviewed date:03/15/2024 12:00:00 AM Interpretation: Performing Lab: Notes/Report: TSH 1.03 mcIU/mL Urinalysis with Microscopic Reviewed date:03/14/2024 12:00:00 AM Interpretation: Performing Lab: Notes/Report: UA Appear Clear UA Bacteria Negative /HPF UA Bili Negative UA Blood Negative UA Color Light Yellow UA Epithelial Cells 2 /HPF UA Glucose Normal UA Ketones Negative UA Leuk Est Negative UA Mucous Trace /LPF UA Nitrite Negative UA pH 5.5 UA Protein Negative UA RBC 0-3 /HPF UA Spec Grav 1.013 UA Urobilinogen Normal UA WBC <1 /HPF Urine Culture Reviewed date:03/14/2024 12:00:00 AM Interpretation: Performing Lab: Notes/Report: C Urine See Below RAVINDER by IFA Reflexive Profile -[facility] Reviewed date:05/23/2024 12:00:00 AM Interpretation: Performing Lab: Notes/Report: RAVINDER IFA Rflx See Below C-Reactive Protein Reviewed date:05/23/2024 12:00:00 AM Interpretation: Performing Lab: Notes/Report: CRP 0.1 mg/dL Chromatin {Nucleosomal} Anti body-[facility] Reviewed date:05/23/2024 12:00:00 AM Interpretation: Performing Lab: Notes/Report: Chromatin Ab See Below Creatine Kinase Reviewed date:05/23/2024 12:00:00 AM Interpretation: Performing Lab: Notes/Report: CK 45 unit/L Cyclic Citrullinated Peptide Ab, IgG-[facility] Reviewed date:05/23/2024 12:00:00 AM Interpretation: Performing Lab: Notes/Report: Cyclic Citrullinated Peptide (CCP) See Below Erythrocyte Sedimentation Ra te Reviewed date:05/23/2024 12:00:00 AM Interpretation: Performing Lab: Notes/Report: ESR, Westergren 34 mm/hr Rheumatoid Factor Reviewed date:05/23/2024 12:00:00 AM Interpretation: Performing Lab: Notes/Report: RHEUMATOID FACTOR <10.0 IntlUnit/mL Uric Acid Reviewed date:05/23/2024 12:00:00 AM Interpretation: Performing Lab: Notes/Report: Uric Acid 4.1 mg/dL Beta Human Chorionic Gonadot ropin Quantitative Reviewed date:08/20/2024 12:00:00 AM Interpretation: Performing Lab: Notes/Report: HCG, Beta Quantitative <0.6 mIU/mL CBC w/ Diff Reviewed date:08/20/2024 12:00:00 AM Interpretation: Performing Lab: Notes/Report: Basophil Auto 0.7 % Eosinophil Auto 0.5 % Hct 43.0 % Hgb 14.8 g/dL Lymph Absolute 1.6 x10*3/mcL Lymph Auto 24.0 % MCH 29.9 pg MCHC 34.3 g/dL MCV 87.1 fL Gray Absolute 0.5 x10*3/mcL Gray Auto 7.6 % MPV 11.0 fL Neutro Absolute 4.6 x10*3/mcL Neutro Auto 67.2 % Platelets 219 K/mcL RBC 4.94 x10*6/mcL RDW 12.3 % WBC 6.8 K/mcL Comprehensive Metabolic Pane l Reviewed date:08/20/2024 12:00:00 AM Interpretation: Performing Lab: Notes/Report: Albumin Lvl 4.9 g/dL Albumin/Globulin Ratio 1.8 Alk Phos 48 unit/L ALT 13 unit/L ANION GAP 9.8 mmol/L AST 11 unit/L Bilirubin Total 0.7 mg/dL BUN 16 mg/dL Calcium Lvl 9.9 mg/dL Chloride Lvl 104 mmol/L CO2 23 mmol/L Creatinine Lvl 0.66 mg/dL eGFR CKD-EPI >90 mL/min/1.73 m2 Glucose Lvl 89 mg/dL Potassium Lvl 4.0 mmol/L Protein Total 7.6 g/dL Sodium Lvl 137 mmol/L HCG Qualitative Serum Reviewed date:08/20/2024 12:00:00 AM Interpretation: Performing Lab: Notes/Report: HCG Serum Qual Negative Magnesium Reviewed date:08/20/2024 12:00:00 AM Interpretation: Performing Lab: Notes/Report: Magnesium Lvl 1.9 mg/dL Urinalysis Reviewed date:10/06/2024 08:34:56 AM Interpretation: Performing Lab: Notes/Report: Urine-Color yellow Specific Angier 1.020 pH 6.0 Glucose neg Urine Protein trace Occult Blood neg Bilirubin small Urobilinogen,Semi-Qn neg Nitrite, Urine neg Ketones trace Leucocyte Esterase mod Lyme Disease Ab Total with R fx IgM IgG, Florecita-[facility]UP Reviewed date:05/04/2024 12:00:00 AM Interpretation: Performing Lab: Notes/Report: Lyme Disease Ab Total with Rfx IgM IgG See Below Rflx Lyme Modified 2-Tier Te sting, 2nd Tier Reviewed date:05/04/2024 12:00:00 AM Interpretation: Performing Lab: Notes/Report: Lyme Ab IB IgG/IgM See Below CBC w/ Diff Reviewed date:04/21/2024 12:00:00 AM Interpretation: Performing Lab: Notes/Report: Basophil Auto 0.5 % Eos Absolute 0.1 x10*3/mcL Eosinophil Auto 1.3 % Hct 39.1 % Hgb 13.5 g/dL Lymph Absolute 1.6 x10*3/mcL Lymph Auto 25.5 % MCH 29.8 pg MCHC 34.6 g/dL MCV 86.3 fL Gray Absolute 0.5 x10*3/mcL Gray Auto 7.5 % MPV 11.0 fL Neutro Absolute 4.0 x10*3/mcL Neutro Auto 65.2 % Platelets 207 K/mcL RBC 4.53 x10*6/mcL RDW 13.1 % WBC 6.2 K/mcL Comprehensive Metabolic Pane l Reviewed date:04/21/2024 12:00:00 AM Interpretation: Performing Lab: Notes/Report: Albumin Lvl 4.7 g/dL Albumin/Globulin Ratio 1.9 Alk Phos 47 unit/L ALT 10 unit/L ANION GAP 6.8 mmol/L AST 11 unit/L Bilirubin Total 0.5 mg/dL BUN 18 mg/dL Calcium Lvl 9.7 mg/dL Chloride Lvl 107 mmol/L CO2 24 mmol/L Creatinine Lvl 0.69 mg/dL eGFR CKD-EPI >90 mL/min/1.73 m2 Glucose Lvl 93 mg/dL Potassium Lvl 4.3 mmol/L Protein Total 7.1 g/dL Sodium Lvl 138 mmol/L Lipase Level Reviewed date:04/21/2024 12:00:00 AM Interpretation: Performing Lab: Notes/Report: Lipase Lvl 48 unit/L Lyme Disease Ab Total with R fx IgM IgG, Florecita-[facility]UP Reviewed date:04/21/2024 12:00:00 AM Interpretation: Performing Lab: Notes/Report: Lyme Disease Ab Total with Rfx IgM IgG See Below Rflx Lyme Modified 2-Tier Te sting, 2nd Tier Reviewed date:04/21/2024 12:00:00 AM Interpretation: Performing Lab: Notes/Report: Rflx Lyme Modified 2-Tier Testing, 2nd Tier See Below IGF 1-[facility] Reviewed date:03/20/2024 12:00:00 AM Interpretation: Performing Lab: Notes/Report: IGF-1 See Below Comprehensive Metabolic Pane l Reviewed date:02/13/2024 12:00:00 AM Interpretation: Performing Lab: Notes/Report: Albumin Lvl 4.6 g/dL Albumin/Globulin Ratio 1.8 Alk Phos 61 unit/L ALT 34 unit/L ANION GAP 3.4 mmol/L AST 13 unit/L Bilirubin Total 0.6 mg/dL BUN 11 mg/dL Calcium Lvl 9.4 mg/dL Chloride Lvl 105 mmol/L CO2 32 mmol/L Creatinine Lvl 0.71 mg/dL eGFR CKD-EPI >90 mL/min/1.73 m2 Glucose Lvl 85 mg/dL Potassium Lvl 4.2 mmol/L Protein Total 7.1 g/dL Sodium Lvl 140 mmol/L Cytomegalovirus by [employer] sherrie NAAT, Plasma Reviewed date:02/13/2024 12:00:00 AM Interpretation: Performing Lab: Notes/Report: CMV Qn by NAAT, Plasma See Below GGT{Gamma Glutamyl Transfera se} Reviewed date:02/13/2024 12:00:00 AM Interpretation: Performing Lab: Notes/Report: GGT 36 unit/L CBC w/ Diff Reviewed date:02/07/2024 12:00:00 AM Interpretation: Performing Lab: Notes/Report: Basophil Auto 0.4 % Eos Absolute 0.1 x10*3/mcL Eosinophil Auto 1.7 % Hct 37.4 % Hgb 13.1 g/dL Lymph Absolute 1.0 x10*3/mcL Lymph Auto 31.7 % MCH 29.1 pg MCHC 35.1 g/dL MCV 83.0 fL Gray Absolute 0.5 x10*3/mcL Gray Auto 14.9 % MPV 11.2 fL Neutro Absolute 1.7 x10*3/mcL Neutro Auto 51.3 % Platelets 170 K/mcL RBC 4.50 x10*6/mcL RDW 12.9 % WBC 3.3 K/mcL Comprehensive Metabolic Pane l Reviewed date:02/07/2024 12:00:00 AM Interpretation: Performing Lab: Notes/Report: Albumin Lvl 4.3 g/dL Albumin/Globulin Ratio 1.7 Alk Phos 116 unit/L ALT 330 unit/L ANION GAP 6.6 mmol/L AST 231 unit/L Bilirubin Total 0.6 mg/dL BUN 11 mg/dL Calcium Lvl 9.0 mg/dL Chloride Lvl 107 mmol/L CO2 24 mmol/L Creatinine Lvl 0.74 mg/dL eGFR CKD-EPI >90 mL/min/1.73 m2 Glucose Lvl 93 mg/dL Potassium Lvl 3.7 mmol/L Protein Total 6.8 g/dL Sodium Lvl 138 mmol/L Deidre-Thompson Virus Antibody Panel 1-[facility] Reviewed date:02/08/2024 12:00:00 AM Interpretation: Performing Lab: Notes/Report: EBV Ab pnl 1 See Below Erythrocyte Sedimentation Ra te Reviewed date:02/07/2024 12:00:00 AM Interpretation: Performing Lab: Notes/Report: ESR, Westergren 7 mm/hr Ferritin Reviewed date:02/07/2024 12:00:00 AM Interpretation: Performing Lab: Notes/Report: Ferritin Lvl 28.9 ng/mL IH Urinalysis Reviewed date:02/03/2024 12:00:00 AM Interpretation: Performing Lab: Notes/Report: Bilirubin mod Blood neg Clarity cloudy Color yanet Glucose neg Ketone trace Leukcoytes neg Nitrite neg pH 6 Protein trace Specific Angier 1.005 Urobilinogen 2 Immunoglobulin IgM-[facility]UP Reviewed date:02/08/2024 12:00:00 AM Interpretation: Performing Lab: Notes/Report: IgM See Below T4 Free Reviewed date:02/07/2024 12:00:00 AM Interpretation: Performing Lab: Notes/Report: T4 Free 0.83 ng/dL TB QUANTIFERON GOLD PLUS 4 T UBE Reviewed date:02/07/2024 12:00:00 AM Interpretation: Performing Lab: Notes/Report: Mitogen minus NIL 9.89 IntlUnit/mL NIL 0.11 IntlUnit/mL TB Quantiferon Result Negative TB1-minus NIL 0.03 IntlUnit/mL TB2-minus NIL 0.02 IntlUnit/mL Thyroid Peroxidase {TPO) Ab- [facility] Reviewed date:02/07/2024 12:00:00 AM Interpretation: Performing Lab: Notes/Report: TPO (Thyroid Peroxidase) See Below Thyroid Stimulating Hormone Reviewed date:02/07/2024 12:00:00 AM Interpretation: Performing Lab: Notes/Report: TSH 2.20 mcIU/mL Urinalysis with Microscopic Reviewed date:02/07/2024 12:00:00 AM Interpretation: Performing Lab: Notes/Report: UA Appear Clear UA Bacteria Negative /HPF UA Bili Negative UA Blood Negative UA Color Light Yellow UA Epithelial Cells 1 /HPF UA Glucose Normal UA Ketones Negative UA Leuk Est Negative UA Mucous Negative /LPF UA Nitrite Negative UA pH 5.5 UA Protein Negative UA RBC 1 /HPF UA Spec Grav 1.009 UA Urobilinogen Normal UA WBC 3 /HPF Urine Culture Reviewed date:02/08/2024 12:00:00 AM Interpretation: Performing Lab: Notes/Report: C Urine See Below Vitamin B12 Reviewed date:02/07/2024 12:00:00 AM Interpretation: Performing Lab: Notes/Report: B12 Lvl 805 pg/mL Vitamin D 25 Hydroxy Reviewed date:02/07/2024 12:00:00 AM Interpretation: Performing Lab: Notes/Report: Vitamin D 25 OH 28 ng/mL Rflx Lyme Modified 2-Tier Te sting, 2nd Tier Reviewed date:05/04/2024 12:00:00 AM Interpretation: Performing Lab: Notes/Report: Rflx Lyme Modified 2-Tier Testing, 2nd Tier See Below RAVINDER by IFA Screen-[facility] Reviewed date:08/18/2024 12:00:00 AM Interpretation: Performing Lab: Notes/Report: RAVINDER Scrn See Below Chromatin {Nucleosomal} Anti body-[facility] Reviewed date:08/18/2024 12:00:00 AM Interpretation: Performing Lab: Notes/Report: Chromatin Ab See Below dsDNA {Crithidia luciliae) A b IgG by IFA-[facility] Reviewed date:08/18/2024 12:00:00 AM Interpretation: Performing Lab: Notes/Report: dsDNA Crithidia Ab IgG See Below Miscellaneous Lab Test 1 Reviewed date:08/18/2024 12:00:00 AM Interpretation: Performing Lab: Notes/Report: Misc Lab: Result Misc Reordered Scleroderma {Scl-70) {DAO) A b, IgG-[facility] Reviewed date:08/18/2024 12:00:00 AM Interpretation: Performing Lab: Notes/Report: Scl-70 IgG See Below SM/TEAM PHYSICIAN Antibody-[facility] Reviewed date:08/18/2024 12:00:00 AM Interpretation: Performing Lab: Notes/Report: SM/TEAM PHYSICIAN See Below Buchanan {DAO) Ab, IgG-[facility] Reviewed date:08/18/2024 12:00:00 AM Interpretation: Performing Lab: Notes/Report: Buchanan IgG See Below SSA and SSB Abs, IgG-[facility] Reviewed date:08/18/2024 12:00:00 AM Interpretation: Performing Lab: Notes/Report: SSA and SSB IgG See Below Centromere Antibody, IgG-ARU P Reviewed date:08/18/2024 12:00:00 AM Interpretation: Performing Lab: Notes/Report: Centromere IgG See Below CHARI-1 Antibody-[facility] Reviewed date:08/18/2024 12:00:00 AM Interpretation: Performing Lab: Notes/Report: CHARI-1 Ab See Below Ribosomal P Protein Antibody -[facility] Reviewed date:08/18/2024 12:00:00 AM Interpretation: Performing Lab: Notes/Report: Ribosomal P Ab See Below Reason For Referral Reason PT for low back pain Diagnosis 1 Low back pain, unspe cified back pain laterality, unspecified chronicity, unspecified whether sciatica present (M54.50) Referral Organization [facility] Medicine Referring Provider First Name Dr. Crowley Referring Provider Last Name Alicia Referring Provider Speciality Pediatrics Referred Provider Specialty Physical The rapist Referral Priority Routine Medications Medication SIG (Take, Route, Frequency, Duration) Notes Start Date End Date Status Montelukast Sodium 10 MG 1 tablet Orally Once a day; Duration: 90 days Active Azelastine HCl 0.05 % 1 Ophthalmic two times a day; Duration: 0 08/21/2024 Active oral; Duration: 0 *Pick strength-form from [employer]samurai for eRX* 08/21/2024 Active predniSONE 20 MG 3 tablets once a day for 3 days, 2 tablets once a day for 3 days, 1 tablet once a day for 3 days, 0.5 tablet once a day for 2 days Orally Once a day updated quantity 10/08/2024 Active Social History Social History Additional Details Category Social Info Options Details Migrated Social History Migrated Social History Number of children:1 , Living arrangements :: ,notes : Delete Reason: Entered in Error. , Alcohol history:Rarely drinks , Number of children in household :: ,notes : 1 , Tobacco history:Never a smoker Problems Problem Type SNOMED Code ICD Code Onset Dates Problem Status W/U Status Risk Notes Problem Anxiety disorder (691520249) Anxiety disorder, unspecified (F41.9) 06/10/20 24 Active confirmed Problem Stomatitis (55872773) Other forms of stomatitis (K12.1) 05/30/20 23 Active confirmed Problem Pain of knee region (finding) (2371750947) Pain in unspecified knee (M25.569) 04/15/20 24 Active confirmed Problem Mastodynia (12077085) Mastodynia (N64.4) 08/19/20 24 Active confirmed Problem Dyspnea (021206766) Other forms of dyspnea (R06.09) 01/06/20 24 Active confirmed Problem Epigastric pain (71260635) Epigastric pain (R10.13) 02/03/20 24 Active confirmed Problem Generalized hyperhidrosis (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) Generalized hyperhidrosis (R61) 02/03/20 24 Active confirmed Problem Obsessive-compulsi ve disorder (400080726) Obsessive-compul sive disorder, unspecified (F42.9) 07/17/20 Active confirmed Problem Suspected disease caused by Severe acute respiratory coronavirus 2 (situation) (912921720) Encounter for screening for COVID-19 (Z11.52) 08/26/20 Active confirmed Problem Retention of urine (701002157) Retention of urine, unspecified (R33.9) 03/27/20 Active confirmed Problem Viral infection (12203801) Viral infection, unspecified (B34.9) 05/30/20 Active confirmed Problem Herpes zoster without complication (152449870) Zoster without complications (B02.9) 02/17/20 Active confirmed Problem Viral infection of the digestive tract (610178025) Viral intestinal infection, unspecified (A08.4) 08/26/20 Active confirmed Problem Cough (finding) (32790510) Cough, unspecified (R05.9) 01/03/20 Active confirmed acute Problem History of respiratory disease (232363644) Personal history of other diseases of the respiratory system (Z87.09) 08/21/20 Active confirmed Problem Family history of ischemic heart disease (180518478) Family history of ischemic heart disease and other diseases of the circulatory system (Z82.49) 01/06/20 Active confirmed Problem Bite of nonvenomous arthropod (423803020) Bitten or stung by nonvenomous insect and other nonvenomous arthropods, initial encounter (W57.XXXA) 04/15/20 Active confirmed Problem Histopathology finding (964365941) Unspecified abnormal finding in specimens from other organs, systems and tissues (R89.9) 03/16/20 Active confirmed Problem Abnormal findings on microbiological examination of urine (806523970) Unspecified abnormal findings in urine (R82.90) 02/03/20 Active confirmed Problem Laboratory test result abnormal (785615684) Abnormal levels of other serum enzymes (R74.8) 02/06/20 Active confirmed Problem Erythrocyte sedimentation rate raised (127580405) Elevated erythrocyte sedimentation rate (R70.0) 05/28/20 Active confirmed Problem Nutritional status: food and fluid intake (299247084) Other symptoms and signs concerning food and fluid intake (R63.8) 07/30/20 Active confirmed Problem Fatigue (21557081) Other fatigue (R53.83) 05/20/20 Active confirmed Problem Dizziness and giddiness (580906384) Dizziness and giddiness (R42) 08/19/20 Active confirmed Problem Eruption of skin (303084616) Rash and other nonspecific skin eruption (R21) 05/20/20 Active confirmed Problem Diarrhea (22661515) Diarrhea, unspecified (R19.7) 02/03/20 Active confirmed Problem Flatulence, eructation and gas pain (660205194) Abdominal distension (gaseous) (R14.0) 03/12/20 Active confirmed Problem Abdominal Tenderness (45191960) Abdominal tenderness, unspecified site (R10.819) 02/06/20 Active confirmed Problem Pelvic and perineal pain (507456990) Pelvic and perineal pain (R10.2) 03/12/20 Active confirmed Problem Chest pain (40172959) Chest pain, unspecified (R07.9) 01/06/20 Active confirmed Problem Elevated blood pressure reading without diagnosis of hypertension (637215362) Elevated blood-pressure reading, without diagnosis of hypertension (R03.0) 07/17/20 Active confirmed Problem Palpitations (52621804) Palpitations (R00.2) 01/02/20 Active confirmed Problem Tachycardia (8035938) Tachycardia, unspecified (R00.0) 01/02/20 Active confirmed Problem Galactorrhea not associated with childbirth (51178484) Galactorrhea not associated with childbirth (N64.3) 03/12/20 Active confirmed Problem Joint pain (77188633) Pain in unspecified joint (M25.50) 05/20/20 Active confirmed Problem Allergic rhinitis (72624005) Allergic rhinitis, unspecified (J30.9) 08/21/20 Active confirmed Problem Acute bronchitis (07428776) Acute bronchitis, unspecified (J20.9) 01/02/20 Active confirmed Problem Acute upper respiratory infection (57321834) Acute upper respiratory infection, unspecified (J06.9) 10/18/19 Active confirmed Problem Acute sinusitis (19883383) Acute sinusitis, unspecified (J01.90) 01/02/20 Active confirmed Problem Acute atopic conjunctivitis (47044171) Acute atopic conjunctivitis, unspecified eye (H10.10) 08/21/20 Active confirmed Problem Insomnia (029249821) Insomnia, unspecified (G47.00) 07/17/20 Active confirmed Problem Migraine without aura, not refractory (disorder) (723011306) Migraine, unspecified, not intractable, without status migrainosus (G43.909) 06/10/20 Active confirmed Problem Lyme disease (18486815) Lyme disease, unspecified (A69.20) 04/21/20 24 Active confirmed Vital Signs Heart Rate 90 /min 10/06/2024 Temperature 98.4 degrees Fahrenheit 10/06/2024 Respiratory Rate 14 /min 08/19/2024 Height-cm 162.56 cm 10/06/2024 Blood pressure diastolic 84 mm Hg 10/06/2024 Oximetry 97 % 10/06/2024 Weight-kg 73.94 kg 10/06/2024 Height 64.00 in 10/06/2024 Blood pressure systolic 118 mm Hg 10/06/2024 Weight 163 lbs 10/06/2024 BMI 27.98 kg/m2 10/06/2024 Encounters Encounter Location Date Provider Diagnosis [address] [address] 02/03/2024 Dr. Hortencia Tolbert Diarrhea, unspecifie d R19.7 ; Unspecified abnormal findings in urine R82.90 ; Generalized hyperhidrosis R61 and Epigastric pain R10.[address] [address] 02/06/2024 Provider Migration Abdominal tenderness , unspecified site R10.819 ; Viral infection, unspecified B34.9 ; Abnormal levels of other serum enzymes R74.8 and Epigastric pain R10.[address] [address] 02/07/2024 Provider Migration Abnormal levels of other serum enzymes R74.[address] [address] 02/17/2024 Dr. Hortencia Tolbert Zoster without complications B02.[address] [address] 03/12/2024 Dr. Hortencia Tolbert Generalized hyperhidrosis R61 ; Galactorrhea not associated with childbirth N64.3 ; Abdominal distension (gaseous) R14.0 ; Pelvic and perineal pain R10.2 and Unspecified abnormal findings in urine R82.[address] [address] 03/16/2024 Provider Migration Unspecified abnormal finding in specimens from other organs, systems and tissues R89.[address] [address] 03/27/2024 Provider Migration Pelvic and perineal pain R10.2 and Retention of urine, unspecified R33.[address] [address] 04/15/2024 Dr. Hortencia Tolbert Pain in unspecified knee M25.569 ; Bitten or stung by nonvenomous insect and other nonvenomous arthropods, initial encounter W57.XXXA and Diarrhea, unspecified R19.[address] [address] 04/21/2024 Provider Migration Lyme disease, unspecified A69.20 and Bitten or stung by nonvenomous insect and other nonvenomous arthropods, initial encounter W57.XXXA [address] [address] 04/22/2024 Provider Migration Bitten or stung by nonvenomous insect and other nonvenomous arthropods, initial encounter W57.XXXA [address] [address] 05/06/2024 Provider Migration Bitten or stung by nonvenomous insect and other nonvenomous arthropods, initial encounter W57.XXXA [address] [address] 05/20/2024 Provider Migration Other fatigue R53.83 ; Rash and other nonspecific skin eruption R21 and Pain in unspecified joint M25.[address] [address] 05/28/2024 Provider Migration Other fatigue R53.83 ; Elevated erythrocyte sedimentation rate R70.0 and Generalized hyperhidrosis R61 [address] [address] 06/10/2024 [facility] Anxiety disorder, unspecified F41.9 and Migraine, unspecified, not intractable, without status migrainosus G43.[address] [address] 06/25/2024 Provider Migration Migraine, unspecified, not intractable, without status migrainosus G43.[address] [address] 07/17/2024 Dr. Hortencia Tolbert Insomnia, unspecifie d G47.00 ; Elevated blood-pressure reading, without diagnosis of hypertension R03.0 ; Tachycardia, unspecified R00.0 ; Anxiety disorder, unspecified F41.9 and Obsessive-compulsive disorder, unspecified F42.[address] [address] 07/30/2024 Dr. Hortencia Tolbert Anxiety disorder, unspecified F41.9 ; Obsessive-compulsive disorder, unspecified F42.9 ; Insomnia, unspecified G47.00 ; Palpitations R00.2 and Other symptoms and signs concerning food and fluid intake R63.[address] [address] 08/12/2024 Provider Migration Pain in unspecified joint M25.50 ; Unspecified abnormal finding in specimens from other organs, systems and tissues R89.9 and Bitten or stung by nonvenomous insect and other nonvenomous arthropods, initial encounter W57.XXXA [address] [address] 08/19/2024 Dr. Hortencia Tolbert Dizziness and giddiness R42 ; Mastodynia N64.4 and Other fatigue R53.[address] [address] 08/21/2024 Dr. Hortencia Tolbert Acute atopic conjunctivitis, unspecified eye H10.10 ; Allergic rhinitis, unspecified J30.9 ; Cough, unspecified R05.9 and Personal history of other diseases of the respiratory system Z87.[address] [address] 10/06/2024 Dr. Keo Vargas Low back pain, unspecified back pain laterality, unspecified chronicity, unspecified whether sciatica present M54.[address] [address] 09/05/2024 Provider Migration [address] [address] 09/06/2024 Provider Migration [address] [address] 10/08/2024 Hortencia Araiza Lumbar back pain M54.[address] [address] 10/08/2024 Dr. Keo Vargas [address] [address] 10/09/2024 Dr. Keo Vargas Lumbar back pain M54.[address] [address] 01/25/2025 Dr. Keo Vargas Assessments Encounter Date Diagnosis (ICD Code) Assessment Notes Treatment Notes Treatment Clinical Notes Section Notes 02/03/2024 Epigastric pain (ICD-10 - R10.13) 02/03/2024 Diarrhea, unspecified (ICD-10 - R19.7) 02/03/2024 Generalized hyperhidrosis (ICD-10 - R61) 02/03/2024 Unspecified abnormal findings in urine (ICD-10 - R82.90) 02/06/2024 Viral infection, unspecified (ICD-10 - B34.9) 02/06/2024 Epigastric pain (ICD-10 - R10.13) 02/06/2024 Abdominal tenderness, unspecified site (ICD-10 - R10.819) 02/06/2024 Abnormal levels of other serum enzymes (ICD-10 - R74.8) 02/07/2024 Abnormal levels of other serum enzymes (ICD-10 - R74.8) 02/17/2024 Zoster without complications (ICD-10 - B02.9) 03/12/2024 Galactorrhea not associated with childbirth (ICD-10 - N64.3) 03/12/2024 Pelvic and perineal pain (ICD-10 - R10.2) 03/12/2024 Abdominal distension (gaseous) (ICD-10 - R14.0) 03/12/2024 Generalized hyperhidrosis (ICD-10 - R61) 03/12/2024 Unspecified abnormal findings in urine (ICD-10 - R82.90) 03/16/2024 Unspecified abnormal finding in specimens from other organs, systems and tissues (ICD-10 - R89.9) 03/27/2024 Pelvic and perineal pain (ICD-10 - R10.2) 03/27/2024 Retention of urine, unspecified (ICD-10 - R33.9) 04/15/2024 Pain in unspecified knee (ICD-10 - M25.569) 04/15/2024 Diarrhea, unspecified (ICD-10 - R19.7) 04/15/2024 Bitten or stung by nonvenomous insect and other nonvenomous arthropods, initial encounter (ICD-10 - W57.XXXA) 04/21/2024 Lyme disease, unspecified (ICD-10 - A69.20) 04/21/2024 Bitten or stung by nonvenomous insect and other nonvenomous arthropods, initial encounter (ICD-10 - W57.XXXA) 04/22/2024 Bitten or stung by nonvenomous insect and other nonvenomous arthropods, initial encounter (ICD-10 - W57.XXXA) 05/06/2024 Bitten or stung by nonvenomous insect and other nonvenomous arthropods, initial encounter (ICD-10 - W57.XXXA) 05/20/2024 Pain in unspecified joint (ICD-10 - M25.50) 05/20/2024 Rash and other nonspecific skin eruption (ICD-10 - R21) 05/20/2024 Other fatigue (ICD-10 - R53.83) 05/28/2024 Other fatigue (ICD-10 - R53.83) 05/28/2024 Generalized hyperhidrosis (ICD-10 - R61) 05/28/2024 Elevated erythrocyte sedimentation rate (ICD-10 - R70.0) 06/10/2024 Anxiety disorder, unspecified (ICD-10 - F41.9) 06/10/2024 Migraine, unspecified, not intractable, without status migrainosus (ICD-10 - G43.909) 06/25/2024 Migraine, unspecified, not intractable, without status migrainosus (ICD-10 - G43.909) 07/17/2024 Anxiety disorder, unspecified (ICD-10 - F41.9) 07/17/2024 Insomnia, unspecified (ICD-10 - G47.00) 07/17/2024 Tachycardia, unspecified (ICD-10 - R00.0) 07/17/2024 Elevated blood-pressure reading, without diagnosis of hypertension (ICD-10 - R03.0) 07/17/2024 Obsessive-compulsi ve disorder, unspecified (ICD-10 - F42.9) 07/30/2024 Anxiety disorder, unspecified (ICD-10 - F41.9) 07/30/2024 Insomnia, unspecified (ICD-10 - G47.00) 07/30/2024 Palpitations (ICD-10 - R00.2) 07/30/2024 Other symptoms and signs concerning food and fluid intake (ICD-10 - R63.8) 07/30/2024 Obsessive-compulsi ve disorder, unspecified (ICD-10 - F42.9) 08/12/2024 Pain in unspecified joint (ICD-10 - M25.50) 08/12/2024 Unspecified abnormal finding in specimens from other organs, systems and tissues (ICD-10 - R89.9) 08/12/2024 Bitten or stung by nonvenomous insect and other nonvenomous arthropods, initial encounter (ICD-10 - W57.XXXA) 08/19/2024 Mastodynia (ICD-10 - N64.4) 08/19/2024 Dizziness and giddiness (ICD-10 - R42) 08/19/2024 Other fatigue (ICD-10 - R53.83) 08/21/2024 Acute atopic conjunctivitis, unspecified eye (ICD-10 - H10.10) 08/21/2024 Allergic rhinitis, unspecified (ICD-10 - J30.9) 08/21/2024 Personal history of other diseases of the respiratory system (ICD-10 - Z87.09) 08/21/2024 Cough, unspecified (ICD-10 - R05.9) acute 10/06/2024 Low back pain, unspecified back pain laterality, unspecified chronicity, unspecified whether sciatica present (ICD-10 - M54.50) 10/08/2024 Lumbar back pain (ICD-10 - M54.50) 10/09/2024 Lumbar back pain (ICD-10 - M54.50) Plan Of Treatment Pending Test Test Name Order Date Urine Culture, Routine 10/06/2024 X ray : LS Spine 10/06/2024 Next Appt Details Provider Name:[facility], 05/19/2025 01:00:00 PM, [address] [place], [address], [phone] Insurance Providers Payer Name Payer Address Payer Phone Subscriber Number Group Number Insured Name Patient Relationship to Insured Coverage Start Date Coverage End Date [employer] [facility] [address] [place] [address] [id number] Amy Yarbrough Self - patient is the insured Medical (General) History Surgical History Surgery Date(Month/Year) cholecystectomy ,notes : 2013
--- OUTSIDE RECORDS SUMMARY | 2025-01-29 11:34 | XMS_ITS | Clinical Summary ---
Author Organization 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 Gender Identity Not on file Sexual Orientation Not on file Last Filed Vital Signs Vital Sign Reading Time Taken Comments Blood Pressure 106/83 12/14/2020 9:06 PM RECEPTIONIST CLERK Pulse 95 12/14/2020 9:06 PM RECEPTIONIST CLERK Temperature 37.1 C (98.7 F) 12/14/2020 9:06 PM RECEPTIONIST CLERK Respiratory Rate 18 12/14/2020 9:06 PM RECEPTIONIST CLERK Oxygen Saturation 96% 12/14/2020 9:06 PM RECEPTIONIST CLERK Inhaled Oxygen Concentration - - Weight 77.1 kg (170 lb) 12/14/2020 5:18 PM RECEPTIONIST CLERK Height 162.6 cm (5' 4 ) 12/14/2020 5:18 PM RECEPTIONIST CLERK Body Mass Index 29.18 12/14/2020 5:18 PM RECEPTIONIST CLERK Plan of Treatment Health Maintenance Due Date Last Done Comments Hepatitis C Virus (HCV) Screening 1995 Influenza Immunization (#1) 2024 SARS-COV-2 Immunization ( season) 2024 06/26/2021, 05/07/2021 Respiratory Syncytial Virus (RSV) Immunization (Adult) (1 - 1-dose 75+ series) 2068 Hepatitis B Immunization Completed 994, 1993, 1993 DTaP/Tdap/Td Immunization Discontinued 2007, 07/22/1998, 04/12/1995, Additional history exists TdaP Immunization Completed 05/07/2008 Meningococcal Immunization (ACWY) Aged Out No longer eligible based on patient's age to complete this topic Pneumococcal Immunization Combined Aged Out No longer eligible based on patient's age to complete this topic Rotavirus Immunization Aged Out No lo nger eligible based on patient's age to complete this topic Care Teams Garage Laborer Relationship Specialty Start Date End Date Provider, None [place] PCP - General 12/14/20
[2025-01-29 13:29] LABS: Alanine Aminotransferase 14 U/L (14-59); Alkaline Phosphatase 64 U/L (46-116); Anion Gap 9 mmol/L (4-12); Aspartate Amino Transferase < 10 U/L (15-37); Bilirubin,Total 0.8 mg/dL (0.00-1.00); Blood Urea Nitrogen 13 mg/dL (7-18); Carbon Dioxide 26 mmol/L (21-32); Chloride 105 mmol/L (98-108); Estimated Glomerular Filt Rate > 60; Glucose 109 mg/dL (70-99); Osmolality Calculated 291 mOsm/kg (285-295); Potassium 3.9 mmol/L (3.5-5.1); Sodium 140 mmol/L (136-145); Total Protein 7.2 g/dL (6.4-8.2)
[2025-01-29 14:10] LABS: HIV 1 P24 AG Negative (Negative); HIV 1/2 AB Negative (Negative)
[2025-01-30 08:27] LABS: Rubella IgG Antibody 4.84 Index; Rubeola Measles IgG <13.50 AU/mL
[2025-01-31 04:58] LABS: Hepatitis A Antibody IgM NON-REACTIVE (NON-REACTIVE); Hepatitis B Core Antibody NON-REACTIVE (NON-REACTIVE)
[2025-01-31 06:29] LABS: Hepatitis B Surface Antigen NON-REACTIVE (NON-REACTIVE); Hepatitis C Virus Antibody NON-REACTIVE (NON-REACTIVE)
[2025-02-01 09:44] LABS: RPR Screen NON-REACTIVE (NON-REACTIVE)
[2025-02-02 01:03] LABS: Varicella IgM Antibody 1.04
== END 2025-01-29 11:13 | disposition home or self-care (01) ==
LOC: CHSLAB 11:15
PROVIDERS: PCP Physician Assistant; Visit Provider Physician Assistant
DX: Z34.90 Encounter for supervision of normal pregnancy, unspecified, unspecified trimester (principal)
CPT/HCPCS: 36415; 80053; 80074; 84702; 85025; 86592; 86735; 86762; 86765; 86787; 87806

== ENCOUNTER 2025-02-05 10:55 | Outpatient (CLI) | payer OTHER, SELFPAY ==
--- OUTSIDE RECORDS SUMMARY | 2025-02-06 13:46 | XMS_ITS | Data Portability ---
Author Organization [facility] Richard JOSEPH_Rhona Address [address] [address] Assessment No assessment recorded. Plan of Treatment Reminders Order Date Submit Date Provider Last Modified By Organization Details Last Modified Time Details Appointments None recorded. Lab rapid flu (A+B) 2014 015 [email or web address] In-Office Order, Internal Use Only DO Not Attach Compendium DO Not Attach Compendium, Do Not Delete/merge, [id number] 5 19:00:50 mononucleos is, heterophile Ab, blood 2014 015 [email or web address] In-Office Order, Internal Use Only DO Not Attach Compendium DO Not Attach Compendium, Do Not Delete/merge, [id number] 5 19:00:50 rapid strep group A, throat 2014 015 [email or web address] In-Office Order, Internal Use Only DO Not Attach Compendium DO Not Attach Compendium, Do Not Delete/merge, [id number] 5 19:00:50 H pylori Ab, serum 2013 014 swilliams 95 In-Office Order, Internal Use Only DO Not Attach Compendium DO Not Attach Compendium, Do Not Delete/merge, [id number] 4 13:46:53 urinalysis, dipstick 2013 014 swilliams 95 In-Office Order, Internal Use Only DO Not Attach Compendium DO Not Attach Compendium, Do Not Delete/merge, [id number] 4 13:46:53 test, urine 2013 014 swilliams 95 In-Office Order, Internal Use Only DO Not Attach Compendium DO Not Attach Compendium, Do Not Delete/merge, [id number] 4 13:46:53 ESR (erythrocyt e sedimentati on rate), blood 2013 [facility] [employer] [facility], [address], [address], [place], [address], 4 11:21:17 RAVINDER (antinuclea r antibodies) screen, serum 2013 [employer]SE [employer] [facility], [address], [address], [place], [address], 4 11:21:20 rf (rheumatoid factor), serum 2013 [employer]SE [employer] [facility], [address], [address], [place], [address], 4 11:21:19 test, urine 2013 JOSE ALEJANDRO In-Office Order, Internal Use Only DO Not Attach Compendium DO Not Attach Compendium, Do Not Delete/merge, [id number] 4 16:06:16 CBC w/ auto diff 2013 JOSE [employer] [facility], [address], [address], [place], [address], 4 11:21:16 CMP, serum or plasma 2013 [employer]SE [employer] [facility], [address], [address], [place], [address], 4 11:21:14 Referral None recorded. Procedures pulse oximetry (PROC) 2014 015 [email or web address] In-Office Order, Internal Use Only DO Not Attach Compendium DO Not Attach Compendium, Do Not Delete/merge, [id number] 5 19:00:50 pulse oximetry (PROC) [address] [facility]-Office Order, Internal Use Only DO Not Attach Compendium DO Not Attach Compendium, Do Not Delete/merge, [id number] 4 13:46:53 Surgeries None recorded. Imaging None recorded. Medication Orders Zyrtec 10 mg tablet 2014 015 [id number], [address] [place], [address], 5 19:00:50 promethazin e 6.25 mg-codeine 10 mg/5 mL syrup 2014 015 [facility], [address] [place] [address], [address], 5 19:00:51 Cipro 500 mg tablet 2014 015 [facility], [address] [place], [address], 5 19:00:50 pseudoephed rine 30 mg tablet 2014 015 [facility], [address] [place], [address], 5 19:00:51 prednisone 10 mg tablet 2014 015 [facility], [address] [place], [address], 5 19:00:51 Zofran 8 mg tablet [address] [facility], [address] [place] [address], [address], 4 13:46:54 Cipro 250 [address] [facility] [address] [facility], [address] [place] [address], [address], 4 13:46:53 Patient TargetsNo targets recorded. Patient Instructions Encounter Date Encounter Id Patient Instructions Last Modified By Organization Details Last Modified Time 08/02/2014 [id number] F/U in 1 week fo r lab review.Please take medications as instructed. Please follow up with your PCM in 2-3 days for follow up care should you have new or worsening symptoms, or a temp. of 101.5 or > please return to the office for further evaluation/care. [email or web address] Not available 08/02/2014 13:46:54 Pt is in agreement with the plan of care as discussed today. Feel she has the GI virus with N/V that is prevalent in [facility] at this time, has hyeractive BS and Diarrhea, supportive care, labs drawn for establish care and will f/u for back pain c/o. I am concerned about her protienuria and treated for uti, but Mom says pt has had elevated protien before. [email or web address] Not available 08/02/2014 13:46:54 Reason for Referral None Reported. Results Created Date Observation Date Name Description Value Unit Range Abnormal Flag Note LastModifiedBy Organization Detail LastModifiedTime 06/23/20 15 06/23/2015 rapid strep group A, throa t Strep negati ve Not Available In-Office Order Internal Use Only DO Not Attach Compendium DO Not Attach Compendium, Do Not Delete/merge, [id number] 06/23/2015 14:30:56 06/23/2006/23/2015 rapid flu (A+B) Flu A negati ve Not Available In-Office Order Internal Use Only DO Not Attach Compendium DO Not Attach Compendium, Do Not Delete/merge, [id number] 06/23/2015 14:30:56 06/23/2006/23/2015 rapid flu (A+B) Flu B negati ve Not Available In-Office Order Internal Use Only DO Not Attach Compendium DO Not Attach Compendium, Do Not Delete/merge, [id number] 06/23/2015 14:30:56 06/23/2006/23/2015 monon ucleo sis, heter ophil e Ab, blood [place] negati ve Not Available In-Office Order Internal Use Only DO Not Attach Compendium DO Not Attach Compendium, Do Not Delete/merge, [id number] 06/23/2015 14:30:56 06/23/20 15 06/23/2015 pulse oxime try (PROC ) pulse oximetry 97% room air Not Available In-Office Order Internal Use Only DO Not Attach Compendium DO Not Attach Compendium, Do Not Delete/merge, [id number] 06/23/2015 14:30:55 08/02/20 14 08/02/2014 pregn lazarus test, urine HCG negati ve Not Available In-Office Order Internal Use Only DO Not Attach Compendium DO Not Attach Compendium, Do Not Delete/merge, [id number] 08/02/2014 11:30:54 08/02/20 14 08/02/2014 pregn lazarus test, urine HCG negati ve Not Available In-Office Order Internal Use Only DO Not Attach Compendium DO Not Attach Compendium, Do Not Delete/merge, [id number] 08/02/2014 11:30:02 08/02/20 14 08/02/2014 H pylor i Ab, serum H. pylori negati ve Not Available In-Office Order Internal Use Only DO Not Attach Compendium DO Not Attach Compendium, Do Not Delete/merge, [id number] 08/02/2014 10:59:15 08/02/20 14 08/02/2014 urina lysis , dipst ick Leukocytes Negati ve Not Available In-Office Order Internal Use Only DO Not Attach Compendium DO Not Attach Compendium, Do Not Delete/merge, [id number] 08/02/2014 10:59:14 08/02/20 14 08/02/2014 urina lysis , dipst ick Nitrite negati ve Not Available In-Office Order Internal Use Only DO Not Attach Compendium DO Not Attach Compendium, Do Not Delete/merge, [id number] 08/02/2014 10:59:14 08/02/20 14 08/02/2014 urina lysis , dipst ick Urobilinogen .2 Not Available In-Of fice Order Internal Use Only DO Not Attach Compendium DO Not Attach Compendium, Do Not Delete/merge, [id number] 08/02/2014 10:59:14 08/02/20 14 08/02/2014 urina lysis , dipst ick Protein 30 Not Available In-Office Order Internal Use Only DO Not Attach Compendium DO Not Attach Compendium, Do Not Delete/merge, [id number] 08/02/2014 10:59:14 08/02/20 14 08/02/2014 urina lysis , dipst ick pH 5.0 Not Available In-Office Order Internal Use Only DO Not Attach Compendium DO Not Attach Compendium, Do Not Delete/merge, [id number] 08/02/2014 10:59:14 08/02/20 14 08/02/2014 urina lysis , dipst ick Blood Negati ve Not Available In-Office Order Internal Use Only DO Not Attach Compendium DO Not Attach Compendium, Do Not Delete/merge, [id number] 08/02/2014 10:59:14 08/02/20 14 08/02/2014 urina lysis , dipst ick Specific [place] 1.030 Not Available In-Off ice Order Internal Use Only DO Not Attach Compendium DO Not Attach Compendium, Do Not Delete/merge, [id number] 08/02/2014 10:59:14 08/02/20 14 08/02/2014 urina lysis , dipst ick Ketone Negati ve Not Available In-Office Order Internal Use Only DO Not Attach Compendium DO Not Attach Compendium, Do Not Delete/merge, [id number] 08/02/2014 10:59:14 08/02/20 14 08/02/2014 urina lysis , dipst ick Bilirubin Small Not Available In-Offic e Order Internal Use Only DO Not Attach Compendium DO Not Attach Compendium, Do Not Delete/merge, [id number] 08/02/2014 10:59:14 08/02/20 14 08/02/2014 urina lysis , dipst ick Glucose Negati ve Not Available In-Office Order Internal Use Only DO Not Attach Compendium DO Not Attach Compendium, Do Not Delete/merge, [id number] 08/02/2014 10:59:14 08/02/20 14 08/02/2014 pulse oxime try (PROC ) pulse oximetry 100% room air Not Available In-Office Order Internal Use Only DO Not Attach Compendium DO Not Attach Compendium, Do Not Delete/merge, [id number] 08/02/2014 10:45:38 08/02/20 14 08/03/2014 CMP, serum or plasm a sodium 139 mEq/L 135-14 5 normal Not Available [facility] [address] [place], [address], 08/03/2014 11:21:14 08/02/20 14 08/03/2014 CMP, serum or plasm a potassium 3.7 mEq/L 3.5-5. 3 normal Not Available [facility] [place] [address] [place], [address], 08/03/2014 11:21:14 08/02/20 14 08/03/2014 CMP, serum or plasm a chloride 103 mEq/L 96-112 normal Not Available [facility] [place] [address] [place], [address], 08/03/2014 11:21:14 08/02/20 14 08/03/2014 CMP, serum or plasm a CO2 24 mEq/L 19-32 normal Not Available [facility] [address] [place], [address], 08/03/2014 11:21:14 08/02/20 14 08/03/2014 CMP, serum or plasm a glucose 97 mg/dL 70-99 normal Not Available [facility] [place] [address] [place], [address], 08/03/2014 11:21:14 08/02/20 14 08/03/2014 CMP, serum or plasm a BUN 13 mg/dL 6-23 normal Not Available [facility] [address] [place], [address], 08/03/2014 11:21:14 08/02/20 14 08/03/2014 CMP, serum or plasm a creatinine 0.66 mg/dL 0.50-1 .10 normal Not Available [facility] [place] [address] [place], [address], 08/03/2014 11:21:14 08/02/20 14 08/03/2014 CMP, serum or plasm a bilirubin, total 1.3 mg/dL 0.3-1. 2 high Not Available [facility] [place] [address] [place], [address], 08/03/2014 11:21:14 08/02/20 14 08/03/2014 CMP, serum or plasm a alkaline phosphatase 46 U/L 39-117 normal Not Available [facility] [place] [address] [place], [address], 08/03/2014 11:21:14 08/02/20 14 08/03/2014 CMP, serum or plasm a AST/SGOT 16 U/L 0-37 normal Not Available [facility] [address] [place], [address], 08/03/2014 11:21:14 08/02/20 14 08/03/2014 CMP, serum or plasm a ALT/SGPT 15 U/L 0-35 normal Not Available [facility] [address] [place], [address], 08/03/2014 11:21:14 08/02/20 14 08/03/2014 CMP, serum or plasm a total protein 7.3 g/dL 6.0-8. 3 normal Not Available [facility] [address] [place], [address], 08/03/2014 11:21:14 08/02/20 14 08/03/2014 CMP, serum or plasm a albumin 4.6 g/dL 3.5-5. 2 normal Not Available [facility] [address] [place], [address], 08/03/2014 11:21:14 08/02/20 14 08/03/2014 CMP, serum or plasm a calcium 9.0 mg/dL 8.4-10 .5 normal Not Available [facility] [address] [place], [address], 08/03/2014 11:21:14 08/02/20 14 08/03/2014 CMP, serum or plasm a est GFR, >89 mL/mi n normal Not Available [facility] [place] [address] [place], [address], 08/03/2014 11:21:14 08/02/20 14 08/03/2014 CMP, serum or plasm a est GFR, nonafrican tongan >89 mL/mi n normal The estim ated [...] <15 is ESRD. Not Available [facility] [address] [place], [address], 08/03/2014 11:21:14 08/02/20 14 08/03/2014 thyro id panel T4 13.1 ug/dL 5.0-12 .5 high Not Available [facility] [address] [place], [address], 08/03/2014 11:21:15 08/02/20 14 08/03/2014 thyro id panel T3 uptake 25.1 % 22.5-3 7.0 normal Not Available [facility] [place] [address] [facility] [place], [address], 08/03/2014 11:21:15 08/02/20 14 08/03/2014 thyro id panel free thyroxine index 3.3 1.0-3. 9 normal Not Available [facility] [place] [address] [place], [address], 08/03/2014 11:21:15 08/02/20 14 08/03/2014 thyro id panel TSH 1.595 uIU/m L 0.350- 4.500 normal Not Available [facility] [place] [address] [facility] [place], [address], 08/03/2014 11:21:15 08/02/20 14 08/03/2014 CBC w/ auto diff WBC 6.0 K/uL 4.0-10 .5 normal Not Available [facility] [place] [address] [place], [address], 08/03/2014 11:21:16 08/02/20 14 08/03/2014 CBC w/ auto diff RBC 4.98 mil/u L 3.87-5 .11 normal Not Available [facility] [place] [address] [place], [address], 08/03/2014 11:21:16 08/02/20 14 08/03/2014 CBC w/ auto diff hemoglobin 15.2 g/dL 12.0-1 5.0 high Not Available [facility] [place] [address] [place], [address], 08/03/2014 11:21:16 08/02/20 14 08/03/2014 CBC w/ auto diff hematocrit 43.1 % 36.0-4 6.0 normal Not Available [facility] [place] [address] [place], [address], 08/03/2014 11:21:16 08/02/20 14 08/03/2014 CBC w/ auto diff MCV 86.5 fL 78.0-1 00.0 normal Not Available [facility] [place] [address] [place], [address], 08/03/2014 11:21:16 08/02/20 14 08/03/2014 CBC w/ auto diff MCH 30.5 pg 26.0-3 4.0 normal Not Available [facility] [place] [address] [place], [address], 08/03/2014 11:21:16 08/02/20 14 08/03/2014 CBC w/ auto diff MCHC 35.3 g/dL 30.0-3 6.0 normal Not Available [facility] [place] [address] [place], [address], 08/03/2014 11:21:16 08/02/20 14 08/03/2014 CBC w/ auto diff RDW 12.8 % 11.5-1 5.5 normal Not Available [facility] [address] [place], [address], 08/03/2014 11:21:16 08/02/20 14 08/03/2014 CBC w/ auto diff platelet count 200 K/uL 150-40 0 normal Not Available [facility] [address] [place], [address], 08/03/2014 11:21:16 08/02/20 14 08/03/2014 CBC w/ auto diff granulocyte % 81 % 43-77 high Not Available [facility] [address] [place], [address], 08/03/2014 11:21:16 08/02/20 14 08/03/2014 CBC w/ auto diff absolute gran 4.8 K/uL 1.7-7. 7 normal Not Available [facility] [address] [place], [address], 08/03/2014 11:21:16 08/02/20 14 08/03/2014 CBC w/ auto diff lymph % 10 % 12-46 low Not Available [facility] [address] [place], [address], 08/03/2014 11:21:16 08/02/20 14 08/03/2014 CBC w/ auto diff absolute lymph 0.6 K/uL 0.7-4. 0 low Not Available [facility] [address] [place], [address], 08/03/2014 11:21:16 08/02/20 14 08/03/2014 CBC w/ auto diff mono % 9 % 3-12 normal Not Available [facility] [address] [place], [address], 08/03/2014 11:21:16 08/02/20 14 08/03/2014 CBC w/ auto diff absolute mono 0.5 K/uL 0.1-1. 0 normal Not Available [facility] [place] [address] [place], [address], 08/03/2014 11:21:16 08/02/20 14 08/03/2014 CBC w/ auto diff eos % 0 % 0-5 normal Not Available [facility] [place] [address] [place], [address], 08/03/2014 11:21:16 08/02/20 14 08/03/2014 CBC w/ auto diff absolute eos 0.0 K/uL 0.0-0. 7 normal Not Available [facility] [place] [address] [place], [address], 08/03/2014 11:21:16 08/02/20 14 08/03/2014 CBC w/ auto diff baso % 0 % 0-1 normal Not Available [facility] [place] [address] [place], [address], 08/03/2014 11:21:16 08/02/20 14 08/03/2014 CBC w/ auto diff absolute baso 0.0 K/uL 0.0-0. 1 normal Not Available [facility] [place] [address] [place], [address], 08/03/2014 11:21:16 08/02/20 14 08/03/2014 CBC w/ auto diff smear review Criter ia for review not met normal Not Available [facility] [place] [address] [place], [address], 08/03/2014 11:21:16 08/02/20 14 08/03/2014 ESR (eryt hrocy te sedim entat ion rate) , blood sed rate (ESR) 5 mm/HR 0-22 normal Not Available [facility] [place] [address] [place], [address], 08/03/2014 11:21:17 08/02/20 14 08/03/2014 lipid panel , serum cholesterol 180 mg/dL 0-200 normal Not Available [facility] [place] [address] [place], [address], 08/03/2014 11:21:17 08/02/20 14 08/03/2014 lipid panel , serum triglyceride 91 mg/dL <150 normal Not Available [facility] [place] [address] [facility] [place], [address], 08/03/2014 11:21:17 08/02/20 14 08/03/2014 lipid panel , serum HDL cholesterol 50 mg/dL >39 normal Not Available [facility] [address] [place], [address], 08/03/2014 11:21:17 08/02/20 14 08/03/2014 lipid panel , serum total chol/HDL ratio 3.6 ratio normal Not Available [facility] [address] [place], [address], 08/03/2014 11:21:17 08/02/20 14 08/03/2014 lipid panel , serum LDL, direct 121 mg/dL high ATP III Class ifica tion (LDL) : < 100 mg/dL Optim al 100 - 129 mg/dL Near or Above Optim al 130 - 159 mg/dL Borde rline High 160 - 189 mg/dL High > 190 mg/dL Very High Not Available [facility] [address] [place], [address], 08/03/2014 11:21:17 08/02/20 14 08/03/2014 lipid panel , serum LDL:HDL ratio 2.4 ratio normal LDL/H DL Ratio Table Men Women 1/2 [place] Risk 1.0 1.5 [place] Risk 3.6 3.2 2 X [place] Risk 6.3 5.0 3 X [place] Risk 8.0 6.1 [Soheila sandoval WB, Coty reed WP, and [place] ar[place] T, [facility]ilia [employer] Med, 1979, 90:85 ] Not Available [facility] [address] [place], [address], 08/03/2014 11:21:17 08/02/20 14 08/03/2014 HbA1c (hemo [...] . Not Available [facility] [address] [facility] [place], [address], 08/03/2014 11:21:18 08/02/20 14 08/03/2014 HbA1c (hemo globi n A1c), blood estimated average glucose 105 mg/dL <117 normal Not Available [facility] [address] [facility] [place], [address], 08/03/2014 11:21:18 08/02/20 14 08/03/2014 rf (rheu [...] asp Not Available [facility] [address] [facility] [place], [address], 08/03/2014 11:21:19 08/02/20 14 08/03/2014 RAVINDER (anti nucle ar antib odies ) aleee n, serum anti nuclear antibody (RAVINDER) NEG negati ve normal Not Available [facility] [address] [facility] [place], [address], 08/03/2014 11:21:20 08/02/20 14 08/03/2014 micro album in, urine microalbumin 2.43 mg/dL 0.00-1 .89 high Not Available [facility] [address] [facility] [place], [address], 08/03/2014 11:21:21 Result Notes None recorded. Problems Name Problem SNOMED Code Status Onset Date Resolution Date Notes Provider Name and Address Organization Details Recorded Time Abdominal pain 71242670 Active Inge Porfirio null, [place] [facility] 4 13:46:53 Fatigue 35402416 Active Inge [place] [facility] 4 13:46:53 Diarrhea 27013771 Active Inge [place], [place] [facility] 4 13:46:53 Low back pain 262229622 Active Inge [place], [place] [facility] 4 13:46:53 Nausea 297046690 Active Inge [place] [facility] 4 13:46:53 Vomiting 330408255 Active Inge [place] [facility] 4 13:46:53 Proteinuria 11321979 Active Inge [place] [facility] 4 13:46:53 Acute sinusitis 93708365 Active Judy Rosa [place] null, [place] [facility] 5 19:00:50 Allergic rhinitis 39229566 Active Judy Rosa [place], [place] [facility] 5 19:00:50 Cough 23581459 Active Judy Rosa [place], [place] [facility] 5 19:00:50 Problem Notes None recorded. Procedures Surgical History Date Name Laterality Status Provider Name and Address Organization Details Recorded Time 08/07/20 13 Date of Last Pap Smear completed Luca Pal [facility] 08/02/2014 10:45:37 10/07/19 06 Tonsillectomy completed Luca Pal [facility] 08/02/2014 10:45:36 Imaging Results None recorded. Procedure Notes None recorded. Medical Equipment None Reported. Allergies Allergen ID Allergen Name Allergen Category Reaction Reaction Severity Criticality Documentation Date Start Date Code Code System Note Provider Name and Address Organization Details Recorded Time 63693 Product containin g penicilli n (product) medicatio n hives severe Not available 08/02/2014 15206 8001 SNOMED Luca Pal [facility] 4 10:45:37 Medications Name Sig Start Date Stop Date [...] Details Last Updated DateTime 4 165.1 cm 54842.0 7839 g 107 /min 98.6 [degF] 24.5 kg/m2 100 % 100 % 17 /min 122 mm[Hg] 81 mm[Hg] Luca Pal [facility] 4 10:45:37 Date Recorded Body height Body weight Heart rate Body temperature Body mass index (BMI) Oxygen saturation Oxygen saturation in Arterial blood by Pulse oximetry Respiratory rate Systolic blood pressure Diastolic blood pressure Provider Name and Address Organization Details Last Updated DateTime 5 165.1 cm 44248.5 2417 g 80 /min 98.2 [degF] 23.5 kg/m2 97 % 97 % 18 /min 109 mm[Hg] 75 mm[Hg] Nathalia Mack [facility] 5 14:30:55 Social History Question Answer Notes LastModified by Organizat ion Details LastModified Time Tobacco Smoking Status Never Smoker Luca Matiasdelmi [facility] 08/02/2014 10:45:36 Do You Have An [...] not available 08/02/2014 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 No Information not available 08/02/2014 Marital Status rsvadimes Informatio n not available 08/02/2014 Performs Monthly Self-breast [...] Disease N Gout N Kidney Stones N Hyperthyroidism N Ear or Hearing Problems N ADD or ADHD N Thyroid Problems [...] SNOMED-CT Code Diagnosis ICD10 Code Diagnosis Note [id number] KANE Simon [facility] [address] [place] [address] 08/02/2014 10:18:24 08/02/2014 13:58:50 Abdominal pain 02049885 Fatigue 73503027 Diarrhea 45379714 Low back pain 959818510 Nausea 093134699 Vomiting 727724345 Proteinuria 25232896 406825 KANE Cristina [facility] [place] [facility] [address] [place] [address] 06/23/2015 14:07:00 06/23/2015 15:15:45 Acute sinusitis 58581888 Allergic rhinitis 21906285 Cough 95415611 Health Concerns Section Related Observation LastModified by Organization Detai ls LastModified Time None Recorded Concern Status LastModified by Organization Details LastModified Time None Recorded Advance Directives Directive N: Payers Encounter Date Sequence Insurance Name Policy Number Policy Burris Covered Member ID Burris Member ID Guarantor Name 08/02/2014 1 [facility] Dony Painting [id number] Amy Painting 06/23/2015 1 [facility] Dony Painting [id number] Amyarmida Painting OBGyn Episode No OBEpisode recorded.
--- OUTSIDE RECORDS SUMMARY | 2025-02-06 13:46 | XMS_ITS | Encounter Summary ---
Author Organization [facility] Address [address] [place] [id number] Care Team Providers Care Night Supervisor Name Role Phone Chinedu Gordillo Primary Care Provider [phone] Encounter Details Date Type Department Care Team (Late st Contact Info) Description 03/14/2019 Abstract SFL CONVERSION [address] [place] [address] , Generic Conversion, Social History Tobacco Use [...] on filedocumented in this encounter Care Teams Night Supervisor Relationship Specialty Start Date End Date Chinedu Gordillo PA [address] [place] [phone] PCP - General PHYSICIAN INCIDENT RESPONSE ANALYST 02/26/19 documented as of this encounter
--- OUTSIDE RECORDS SUMMARY | 2025-02-06 13:46 | XMS_ITS | Clinical Summary ---
Author Organization [facility] Address [address] [place] [address] Care Team Providers Care Health Information Coder Name Role Phone Chinedu Gordillo Primary Care Provider [phone] Allergies Active Allergy Reactions Criticality Noted Date [...] patient's age to complete this topic Insurance [place] [address] A[employer]NA MEDICAID AETNA Care Teams Health Information Coder Relationship Specialty Start Date End Date Chinedu Gordillo PA [address] [place] [phone] PCP - General PHYSICIAN STAFF ACCOUNTANT 02/26/19
--- OUTSIDE RECORDS SUMMARY | 2025-02-06 13:46 | XMS_ITS | Patient Health Record ---
Author Organization [facility] Address [address] [place] [address] Care Team Providers Care Elevating Grader Operator Name Role Phone Dr. Keo Vargas Primary Care Provider [phone] Dr. Hortencia Tolbert Unavailable [phone] Bull Kapoor Unavailable [phone] Hortencia Araiza Unavailable [phone] Migration, Provider Unavailable Unavailable Results Component Value Reference Range Notes Rflx Lyme Modified 2-Tier Te sting, 2nd Tier Reviewed date:04/21/2024 12:00:00 AM Interpretation: Performing Lab: Notes/Report: Rflx Lyme Modified 2-Tier Testing, 2nd Tier See Below Lyme Disease Ab Total with R fx IgM IgG, Florecita-ARUP Reviewed date:04/21/2024 12:00:00 AM Interpretation: Performing Lab: Notes/Report: Lyme Disease Ab Total with Rfx IgM IgG See Below Lipase Level Reviewed date:04/21/2024 12:00:00 AM Interpretation: Performing Lab: Notes/Report: Lipase Lvl 48 unit/L Comprehensive Metabolic Pane l Reviewed date:04/21/2024 12:00:00 [...] Total 7.1 g/dL Sodium Lvl 138 mmol/L CBC w/ Diff Reviewed date:04/21/2024 12:00:00 AM Interpretation: Performing Lab: Notes/Report: Basophil Auto 0.5 % Eos Absolute 0.1 x10*3/mcL Eosinophil Auto 1.3 % Hct 39.1 % Hgb 13.5 g/dL Lymph Absolute 1.6 x10*3/mcL Lymph Auto 25.5 % MCH 29.8 pg MCHC 34.6 g/dL MCV 86.3 fL [place] Absolute 0.5 x10*3/mcL [place] Auto 7.5 % MPV 11.0 fL Neutro Absolute 4.0 x10*3/mcL Neutro Auto 65.2 % Platelets 207 K/mcL RBC 4.53 x10*6/mcL RDW 13.1 % WBC 6.2 K/mcL Ribosomal P Protein Antibody -[facility] Reviewed date:08/18/2024 12:00:00 AM Interpretation: Performing Lab: Notes/Report: Ribosomal P Ab See Below CHARI-1 Antibody-ARUP Reviewed date:08/18/2024 12:00:00 AM Interpretation: Performing Lab: Notes/Report: CHARI-1 Ab See Below Centromere Antibody, IgG-ARU P Reviewed date:08/18/2024 12:00:00 AM Interpretation: Performing Lab: Notes/Report: Centromere IgG See Below RAVINDER by IFA Reflexive Profile -ARUP Reviewed date:05/23/2024 12:00:00 AM Interpretation: Performing Lab: Notes/Report: RAVINDER IFA Rflx See Below Cyclic Citrullinated Peptide Ab, IgG-ARUP Reviewed date:05/23/2024 12:00:00 AM Interpretation: Performing Lab: Notes/Report: Cyclic Citrullinated Peptide (CCP) See Below Erythrocyte Sedimentation Ra te Reviewed date:05/23/2024 12:00:00 AM Interpretation: Performing Lab: Notes/Report: ESR, Westergren 34 mm/hr HCG Qualitative Serum Reviewed date:08/20/2024 12:00:00 AM Interpretation: Performing Lab: Notes/Report: HCG Serum Qual Negative Cytomegalovirus by Quantitat sherrie NAAT, Plasma Reviewed date:02/13/2024 12:00:00 AM Interpretation: Performing Lab: Notes/Report: CMV Qn by NAAT, Plasma See Below GGT{Gamma Glutamyl Transfera se} Reviewed date:02/13/2024 12:00:00 AM Interpretation: Performing Lab: Notes/Report: GGT 36 unit/L Adrenocorticotropic Hormone [ACTH]-ARUP Reviewed date:03/15/2024 12:00:00 AM Interpretation: Performing Lab: Notes/Report: Adrenocort See Below SSA and SSB Abs, IgG-[facility]UP Reviewed date:08/18/2024 12:00:00 AM Interpretation: Performing Lab: Notes/Report: SSA and SSB IgG See Below Buchanan {DAO) Ab, IgG-[facility]UP Reviewed date:08/18/2024 12:00:00 AM Interpretation: Performing Lab: Notes/Report: Buchanan IgG See Below SM/TELLER HEAD Antibody-ARUP Reviewed date:08/18/2024 12:00:00 AM Interpretation: Performing Lab: Notes/Report: SM/TELLER HEAD See Below Scleroderma {Scl-70) {DAO) A b, IgG-[facility]UP Reviewed date:08/18/2024 12:00:00 AM Interpretation: Performing Lab: Notes/Report: Scl-70 IgG See Below Miscellaneous Lab Test 1 Reviewed date:08/18/2024 12:00:00 AM Interpretation: Performing Lab: Notes/Report: Misc Lab: Result Misc Reordered dsDNA {Crithidia luciliae) A b IgG by IFA-[facility]UP Reviewed date:08/18/2024 12:00:00 AM Interpretation: Performing Lab: Notes/Report: dsDNA Crithidia Ab IgG See Below Chromatin {Nucleosomal} Anti body-ARUP Reviewed date:08/18/2024 12:00:00 AM Interpretation: Performing Lab: Notes/Report: Chromatin Ab See Below RAVINDER by IFA Screen-[facility]UP Reviewed date:08/18/2024 12:00:00 AM Interpretation: Performing Lab: Notes/Report: RAVINDER Scrn See Below Rflx Lyme Modified 2-Tier Te sting, 2nd Tier Reviewed date:05/04/2024 12:00:00 AM Interpretation: Performing Lab: Notes/Report: Rflx Lyme Modified 2-Tier Testing, 2nd Tier See Below Urine Culture Reviewed date:03/14/2024 12:00:00 AM Interpretation: Performing Lab: Notes/Report: C Urine See Below Urinalysis with Microscopic Reviewed date:03/14/2024 12:00:00 AM [...] UA Urobilinogen Normal UA WBC <1 /HPF Thyroid Stimulating Hormone Reviewed date:03/15/2024 12:00:00 AM Interpretation: Performing Lab: Notes/Report: TSH 1.03 mcIU/mL Prolactin Reviewed date:03/15/2024 12:00:00 AM Interpretation: Performing Lab: Notes/Report: Prolactin 13.74 ng/mL Luteinizing Hormone Reviewed date:03/15/2024 12:00:00 AM Interpretation: Performing Lab: Notes/Report: LH 67.9 mIU/mL IH Urinalysis Reviewed date:03/12/2024 12:00:00 AM Interpretation: Performing Lab: Notes/Report: Bilirubin Moderate Blood Negative Glucose Negative Ketone Trace Leukcoytes Negative Nitrite Negative pH 5.0 Protein Trace Specific Mathews 1.010 Urobilinogen 0.2 IGF 1-ARUP Reviewed date:03/15/2024 12:00:00 AM Interpretation: Performing Lab: Notes/Report: IGF-1 See Below Follicle Stimulating Hormone Level Reviewed date:03/15/2024 12:00:00 AM Interpretation: Performing Lab: Notes/Report: FSH 20.5 mIU/mL Cortisol Reviewed date:03/15/2024 12:00:00 AM Interpretation: Performing Lab: Notes/Report: Cortisol 9.4 mcg/dL Comprehensive Metabolic Pane l Reviewed date:03/15/2024 12:00:00 [...] Total 6.6 g/dL Sodium Lvl 139 mmol/L CBC w/ Diff Reviewed date:03/15/2024 12:00:00 AM Interpretation: Performing Lab: Notes/Report: Basophil Auto 0.3 % Eos Absolute 0.1 x10*3/mcL Eosinophil Auto 1.1 % Hct 38.9 % Hgb 13.1 g/dL Lymph Absolute 1.8 x10*3/mcL Lymph Auto 27.3 % MCH 29.1 pg MCHC 33.7 g/dL MCV 86.4 fL [place] Absolute 0.5 x10*3/mcL [place] Auto 7.5 % MPV 10.6 fL Neutro Absolute 4.2 x10*3/mcL Neutro Auto 63.8 % Platelets 217 K/mcL RBC 4.50 x10*6/mcL RDW 13.4 % WBC 6.6 K/mcL Comprehensive Metabolic Pane l Reviewed date:02/13/2024 12:00:00 [...] Total 7.1 g/dL Sodium Lvl 140 mmol/L IGF 1-ARUP Reviewed date:03/20/2024 12:00:00 AM Interpretation: Performing Lab: Notes/Report: IGF-1 See Below Rflx Lyme Modified 2-Tier Te sting, 2nd Tier Reviewed date:05/04/2024 12:00:00 AM Interpretation: Performing Lab: Notes/Report: Lyme Ab IB IgG/IgM See Below Lyme Disease Ab Total with R fx IgM IgG, Florecita-ARUP Reviewed date:05/04/2024 12:00:00 AM Interpretation: Performing Lab: Notes/Report: Lyme Disease Ab Total with Rfx IgM IgG See Below Magnesium Reviewed date:08/20/2024 12:00:00 AM Interpretation: Performing Lab: Notes/Report: Magnesium Lvl 1.9 mg/dL Comprehensive Metabolic Pane l Reviewed date:08/20/2024 12:00:00 [...] Total 7.6 g/dL Sodium Lvl 137 mmol/L CBC w/ Diff Reviewed date:08/20/2024 12:00:00 AM Interpretation: Performing Lab: Notes/Report: Basophil Auto 0.7 % Eosinophil Auto 0.5 % Hct 43.0 % Hgb 14.8 g/dL Lymph Absolute 1.6 x10*3/mcL Lymph Auto 24.0 % MCH 29.9 pg MCHC 34.3 g/dL MCV 87.1 fL [place] Absolute 0.5 x10*3/mcL [place] Auto 7.6 % MPV 11.0 fL Neutro Absolute 4.6 x10*3/mcL Neutro Auto 67.2 % Platelets 219 K/mcL RBC 4.94 x10*6/mcL RDW 12.3 % WBC 6.8 K/mcL Beta Human Chorionic Gonadot ropin Quantitative Reviewed date:08/20/2024 12:00:00 AM Interpretation: Performing Lab: Notes/Report: HCG, Beta Quantitative <0.6 mIU/mL Uric Acid Reviewed date:05/23/2024 12:00:00 AM Interpretation: Performing Lab: Notes/Report: Uric Acid 4.1 mg/dL Rheumatoid Factor Reviewed date:05/23/2024 12:00:00 AM Interpretation: Performing Lab: Notes/Report: RHEUMATOID FACTOR <10.0 IntlUnit/mL Creatine Kinase Reviewed date:05/23/2024 12:00:00 AM Interpretation: Performing Lab: Notes/Report: CK 45 unit/L Chromatin {Nucleosomal} Anti body-ARUP Reviewed date:05/23/2024 12:00:00 AM Interpretation: Performing Lab: Notes/Report: Chromatin Ab See Below C-Reactive Protein Reviewed date:05/23/2024 12:00:00 AM Interpretation: Performing Lab: Notes/Report: CRP 0.1 mg/dL Urinalysis Reviewed date:10/06/2024 08:34:56 AM Interpretation: Performing Lab: Notes/Report: Urine-Color yellow Specific Mathews 1.020 pH 6.0 Glucose neg Urine Protein trace Occult Blood neg Bilirubin small Urobilinogen,Semi-Qn neg Nitrite, Urine neg Ketones trace Leucocyte Esterase mod Reason For Referral Reason PT for low back pain Diagnosis 1 Low back pain, unspe cified back pain laterality, unspecified chronicity, unspecified whether sciatica present (M54.50) Referral Organization [facility] Referring Provider First Name Dr. Crowley Referring [...] Active oral; Duration: 0 *Pick strength-form from [employer] for eRX* 08/21/2024 Active predniSONE 20 MG [...] Problem Status W/U Status Risk Notes Problem Viral infection of the digestive tract (658913167) Viral intestinal infection, unspecified (A08.4) 08/26/20 23 Active confirmed Problem Lyme disease (40859014) Lyme disease, unspecified (A69.20) 04/21/20 24 Active confirmed Problem Herpes zoster without complication (209133920) Zoster without complications (B02.9) 02/17/20 24 Active confirmed Problem Viral infection (96638488) Viral infection, unspecified (B34.9) 05/30/20 23 Active confirmed Problem Anxiety disorder (740612859) Anxiety disorder, unspecified (F41.9) 06/10/20 Active confirmed Problem Migraine without aura, not refractory (disorder) (441219044) Migraine, unspecified, not intractable, without status migrainosus (G43.909) 06/10/20 Active confirmed Problem Insomnia (652877032) Insomnia, unspecified (G47.00) 07/17/20 Active confirmed Problem Acute atopic conjunctivitis (39666392) Acute atopic conjunctivitis, unspecified eye (H10.10) 08/21/20 Active confirmed Problem Acute sinusitis (43712326) Acute sinusitis, unspecified (J01.90) 01/02/20 Active confirmed Problem Acute upper respiratory infection (07670667) Acute upper respiratory infection, unspecified (J06.9) 10/18/19 Active confirmed Problem Acute bronchitis (45178950) Acute bronchitis, unspecified (J20.9) 01/02/20 Active confirmed Problem Allergic rhinitis (71616880) Allergic rhinitis, unspecified (J30.9) 08/21/20 Active confirmed Problem Stomatitis (37433315) Other forms of stomatitis (K12.1) 05/30/20 Active confirmed Problem Joint pain (03156715) Pain in unspecified joint (M25.50) 05/20/20 24 Active confirmed Problem Pain of knee region (finding) (5379040831) Pain in unspecified knee (M25.569) 04/15/20 24 Active confirmed Problem Galactorrhea not associated with childbirth (47724739) Galactorrhea not associated with childbirth (N64.3) 03/12/20 Active confirmed Problem Mastodynia (60638909) Mastodynia (N64.4) 08/19/20 24 Active confirmed Problem Tachycardia (8027212) Tachycardia, unspecified (R00.0) 01/02/20 Active confirmed Problem Palpitations (01949785) Palpitations (R00.2) 01/02/20 Active confirmed Problem Elevated blood pressure reading without diagnosis of hypertension (607088589) Elevated blood-pressure reading, without diagnosis of hypertension (R03.0) 07/17/20 Active confirmed Problem Dyspnea (910283953) Other forms of dyspnea (R06.09) 01/06/20 Active confirmed Problem Chest pain (25568670) Chest pain, unspecified (R07.9) 01/06/20 Active confirmed Problem Epigastric pain (07230028) Epigastric pain (R10.13) 02/03/20 Active confirmed Problem Pelvic and perineal pain (207851627) Pelvic and perineal pain (R10.2) 03/12/20 Active confirmed Problem Abdominal Tenderness (56694403) Abdominal tenderness, unspecified site (R10.819) 02/06/20 Active confirmed Problem Flatulence, eructation and gas pain (694441762) Abdominal distension (gaseous) (R14.0) 03/12/20 Active confirmed Problem Diarrhea (99234923) Diarrhea, unspecified (R19.7) 02/03/20 Active confirmed Problem Eruption of skin (701670894) Rash and other nonspecific skin eruption (R21) 05/20/20 Active confirmed Problem Retention of urine (219756347) Retention of urine, unspecified (R33.9) 03/27/20 Active confirmed Problem Dizziness and giddiness (658485521) Dizziness and giddiness (R42) 08/19/20 Active confirmed Problem Fatigue (83537147) Other fatigue (R53.83) 05/20/20 24 Active confirmed Problem Generalized hyperhidrosis (773397774) Generalized hyperhidrosis (R61) 02/03/20 Active confirmed Problem Nutritional status: food and fluid intake (201961326) Other symptoms and signs concerning food and fluid intake (R63.8) 07/30/20 Active confirmed Problem Erythrocyte sedimentation rate raised (364207835) Elevated erythrocyte sedimentation rate (R70.0) 05/28/20 Active confirmed Problem Laboratory test result abnormal (517756083) Abnormal levels of other serum enzymes (R74.8) 02/06/20 Active confirmed Problem Abnormal findings on microbiological examination of urine (489014629) Unspecified abnormal findings in urine (R82.90) 02/03/20 Active confirmed Problem Histopathology finding (745933096) Unspecified abnormal finding in specimens from other organs, systems and tissues (R89.9) 03/16/20 Active confirmed Problem Bite of nonvenomous arthropod (863402028) Bitten or stung by nonvenomous insect and other nonvenomous arthropods, initial encounter (W57.XXXA) 04/15/20 24 Active confirmed Problem Family history of ischemic heart disease (949225765) Family history of ischemic heart disease and other diseases of the circulatory system (Z82.49) 01/06/20 24 Active confirmed Problem History of respiratory disease (644093571) Personal history of other diseases of the respiratory system (Z87.09) 08/21/20 24 Active confirmed Problem Obsessive-compulsi ve disorder (569287668) Obsessive-compul sive disorder, unspecified (F42.9) 07/17/20 24 Active confirmed Problem Suspected disease caused by Severe acute respiratory coronavirus 2 (situation) (336184424) Encounter for screening for COVID-19 (Z11.52) 08/26/20 23 Active confirmed Problem Cough (finding) (19897442) Cough, unspecified (R05.9) 01/03/20 24 Active confirmed acute Vital Signs Heart Rate 90 /min 10/06/2024 Temperature 98.4 degrees Fahrenheit 10/06/2024 Respiratory Rate 14 /min 08/19/2024 Height-cm 162.56 cm 10/06/2024 Blood pressure diastolic 84 mm Hg 10/06/2024 Oximetry 97 % 10/06/2024 Weight-kg 73.94 kg 10/06/2024 Height 64.00 in 10/06/2024 Blood pressure systolic 118 mm Hg 10/06/2024 Weight 163 lbs 10/06/2024 BMI 27.98 kg/m2 10/06/2024 Encounters Encounter Location Date Provider Diagnosis [address] [address] 10/08/2024 Hortencia Araiza Lumbar back pain M54.[address] [address] 10/08/2024 Dr. Keo Vargas [address] [address] 10/09/2024 Dr. Keo Vargas Lumbar back pain M54.[address] [address] 01/25/2025 Dr. Keo Vargas [address] [address] 10/06/2024 Dr. Keo Vargas Low back pain, unspecified back pain laterality, unspecified chronicity, unspecified whether sciatica present M54.50 [place] [address]/17/2024 Dr. Hortencia Tolbert Zoster without complications B02.9 [place] [address]/12/2024 Dr. Hortencia Tolbert Generalized hyperhidrosis R61 ; Galactorrhea not associated with childbirth N64.3 ; Abdominal distension (gaseous) R14.0 ; Pelvic and perineal pain R10.2 and Unspecified abnormal findings in urine R82.90 [place] [address]/17/2024 Dr. Hortencia Tolbert Insomnia, unspecifie d G47.00 ; Elevated blood-pressure reading, without diagnosis of hypertension R03.0 ; Tachycardia, unspecified R00.0 ; Anxiety disorder, unspecified F41.9 and Obsessive-compulsive disorder, unspecified F42.9 [place] [address]/19/2024 Dr. Hortencia Tolbert Dizziness and giddiness R42 ; Mastodynia N64.4 and Other fatigue R53.83 [place] 4318208/21/2024 Dr. Hortencia Tolbert Acute atopic conjunctivitis, unspecified eye H10.10 ; Allergic rhinitis, unspecified J30.9 ; Cough, unspecified R05.9 and Personal history of other diseases of the respiratory system Z87.09 [place] [address]/10/2024 Bull Kapoor Anxiety disorder, unspecified F41.9 and Migraine, unspecified, not intractable, without status migrainosus G43.909 [place] [address]/30/2024 Dr. Hortencia Tolbert Anxiety disorder, unspecified F41.9 ; Obsessive-compulsive disorder, unspecified F42.9 ; Insomnia, unspecified G47.00 ; Palpitations R00.2 and Other symptoms and signs concerning food and fluid intake R63.8 [place] [id number] 09/05/2024 Provider Migration [address] [address] 09/06/2024 Provider Migration [address] [address] 04/15/2024 Dr. Hortencia Tolbert Pain in unspecified knee M25.569 ; Bitten or stung by nonvenomous insect and other nonvenomous arthropods, initial encounter W57.XXXA and Diarrhea, unspecified R19.[address] [address] 02/07/2024 Provider Migration Abnormal levels of other serum enzymes R74.[address] [address] 04/21/2024 Provider Migration Lyme disease, unspecified A69.20 and Bitten or stung by nonvenomous insect and other nonvenomous arthropods, initial encounter W57.XXXA [address] [address] 04/22/2024 Provider Migration Bitten or stung by nonvenomous insect and other nonvenomous arthropods, initial encounter W57.XXXA [address] [address] 05/06/2024 Provider Migration Bitten or stung by nonvenomous insect and other nonvenomous arthropods, initial encounter W57.XXXA [address] [address] 05/20/2024 Provider Migration Other fatigue R53.83 ; Rash and other nonspecific skin eruption R21 and Pain in unspecified joint M25.[address] [address] 05/28/2024 Provider Migration Other fatigue R53.83 ; Elevated erythrocyte sedimentation rate R70.0 and Generalized hyperhidrosis R61 [address] [address] 03/16/2024 Provider Migration Unspecified abnormal finding in specimens from other organs, systems and tissues R89.[address] [address] 03/27/2024 Provider Migration Pelvic and perineal pain R10.2 and Retention of urine, unspecified R33.9 [facility] [address] [place] [address] 06/25/2024 Provider Migration Migraine, unspecified, not intractable, without status migrainosus G43.909 [facility] [address] [place] [address] 08/12/2024 Provider Migration Pain in unspecified joint M25.50 ; Unspecified abnormal finding in specimens from other organs, systems and tissues R89.9 and Bitten or stung by nonvenomous insect and other nonvenomous arthropods, initial encounter W57.XXXA Assessments Encounter Date Diagnosis (ICD Code) Assessment Notes Treatment Notes Treatment Clinical Notes Section Notes 02/07/2024 Abnormal levels of other serum enzymes [...] Next Appt Details Provider Name:Dr. Hortencia Paul [facility], 05/19/2025 01:00:00 PM, [address] [place], [address], [phone] Insurance Providers Payer Name Payer Address Payer Phone Subscriber Number Group Number Insured Name Patient Relationship to Insured Coverage Start Date Coverage End Date Aetna [facility] [address] [place] [address] [id number] Amy Yarbrough Self - patient is the insured Medical (General) History Surgical History Surgery Date(Month/Year) cholecystectomy ,notes : 2013
--- OUTSIDE RECORDS SUMMARY | 2025-02-06 13:46 | XMS_ITS | Clinical Summary ---
Author Organization [facility] Address [address] [place] [address] Phone Care Team Providers Care Chain Machine Operator Name Role Phone Provider, None Primary Care [...] on file Legal Sex Female 5:12 PM BLANKET INSPECTOR Gender Identity Not on file Sexual Orientation Not on file Last Filed Vital Signs Vital Sign Reading Time Taken Comments Blood Pressure 106/83 12/14/2020 9:06 PM BLANKET INSPECTOR Pulse 95 12/14/2020 9:06 PM BLANKET INSPECTOR Temperature 37.1 C (98.7 F) 12/14/2020 9:06 PM BLANKET INSPECTOR Respiratory Rate 18 12/14/2020 9:06 PM BLANKET INSPECTOR Oxygen Saturation 96% 12/14/2020 9:06 PM BLANKET INSPECTOR Inhaled Oxygen Concentration - - Weight 77.1 kg (170 lb) 12/14/2020 5:18 PM BLANKET INSPECTOR Height 162.6 cm (5' 4 ) 12/14/2020 5:18 PM BLANKET INSPECTOR Body Mass Index 29.18 12/14/2020 5:18 PM BLANKET INSPECTOR Plan of Treatment Health Maintenance Due Date [...] age to complete this topic Care Teams Chain Machine Operator Relationship Specialty Start Date End Date Provider, None [place] PCP - General 12/14/20
== END 2025-02-05 10:56 | disposition home or self-care (01) ==
LOC: CHSLAB 13:08
PROVIDERS: PCP Physician Assistant; Visit Provider Physician Assistant
DX: Z34.90 Encounter for supervision of normal pregnancy, unspecified, unspecified trimester (principal)
CPT/HCPCS: 36415; 84702

== ENCOUNTER 2025-02-10 13:26 | Outpatient (CLI) | payer OTHER, SELFPAY ==
--- NOTE | ~2025-02-10 | US_ITS ---
EXAMINATION: US OB <=14 wk fetus w TV DATE: 02/10/2025 13:59 INDICATION: First trimester TECHNIQUE: Real-time pelvic ultrasound utilizing both a transvaginal and transabdominal probe was pe rformed. The interpreting radiologist was not present for the study. COMPARISON: None. FINDINGS: The uterus measures 11.7 x 5.4 x 5.0 cm. There is an intrauterine gestational sac. A yolk sac and fe carmen pole are identified. The crown rump length measures 6 mm, which correlates with an estimated gest ational age of 6 weeks and 3 days. heart motion is identified measuring 119 beats per minute (b pm) by M-mode Doppler. 2.3 x 1.6 x 1.1 cm hypoechoic likely subchorionic hematoma along side the gest ational sac. The right ovary measures 3.0 x 2.2 x 2.2 cm. 1.4 cm anechoic likely corpus luteum cyst in the right o vary. The left ovary is not visualized. There is no free fluid in the pelvis. IMPRESSION: 1. Single living fetus with heart rate of 119 bpm. 2. Gestational age by ultrasound of 6 weeks 3 day(s) +/- 3 day(s) with ultrasound estimated date of delivery (ZEKE) of 10/03/2025. Reviewed, dictated and finalized at location A. IMPRESSION: 1. Single living fetus with heart rate of 119 bpm. 2. Gestational age by ultrasound of 6 weeks 3 day(s) +/- 3 day(s) with ultraso und estimated date of delivery (ZEKE) of 10/03/2025.
--- OUTSIDE RECORDS SUMMARY | 2025-02-10 13:39 | XMS_ITS | Encounter Summary ---
Author Organization [facility] Address [address] [place] [address] Care Team Providers Care Relationship Associate Name Role Phone Chinedu Gordillo Primary Care Provider [phone] Encounter Details Date Type Department Care Team (Late st Contact Info) Description 03/14/2019 Abstract SFL CONVERSION [address] [address] , Generic Conversion, Social History Tobacco Use [...] on filedocumented in this encounter Care Teams Relationship Associate Relationship Specialty Start Date End Date Chinedu Godrillo PA [address] [place] [phone] PCP - General PHYSICIAN MORTICIAN SUPPLIES SALES REPRESENTATIVE 02/26/19 documented as of this encounter
--- OUTSIDE RECORDS SUMMARY | 2025-02-10 13:39 | XMS_ITS | Clinical Summary ---
Author Organization [facility] Address [address] [place] [address] Phone Care Team Providers Care Plant Clerk Name Role Phone Provider, None Primary Care [...] on file Legal Sex Female 5:12 PM MAINFRAME APPLICATIONS DEVELOPER Gender Identity Not on file Sexual Orientation Not on file Last Filed Vital Signs Vital Sign Reading Time Taken Comments Blood Pressure 106/83 12/14/2020 9:06 PM MAINFRAME APPLICATIONS DEVELOPER Pulse 95 12/14/2020 9:06 PM MAINFRAME APPLICATIONS DEVELOPER Temperature 37.1 C (98.7 F) 12/14/2020 9:06 PM MAINFRAME APPLICATIONS DEVELOPER Respiratory Rate 18 12/14/2020 9:06 PM MAINFRAME APPLICATIONS DEVELOPER Oxygen Saturation 96% 12/14/2020 9:06 PM MAINFRAME APPLICATIONS DEVELOPER Inhaled Oxygen Concentration - - Weight 77.1 kg (170 lb) 12/14/2020 5:18 PM MAINFRAME APPLICATIONS DEVELOPER Height 162.6 cm (5' 4 ) 12/14/2020 5:18 PM MAINFRAME APPLICATIONS DEVELOPER Body Mass Index 29.18 12/14/2020 5:18 PM MAINFRAME APPLICATIONS DEVELOPER Plan of Treatment Health Maintenance Due Date [...] age to complete this topic Care Teams Plant Clerk Relationship Specialty Start Date End Date Provider, None [place] PCP - General 12/14/20
--- OUTSIDE RECORDS SUMMARY | 2025-02-10 13:39 | XMS_ITS | Clinical Summary ---
Author Organization [facility] Address [address] [place] [address] Care Team Providers Care Lever Tender Name Role Phone Chinedu Gordillo Primary Care Provider [phone] Allergies Active Allergy Reactions Criticality Noted Date [...] patient's age to complete this topic [place] [address] [place] [address] [employer] MEDICAID [employer] Care Teams Lever Tender Relationship Specialty Start Date End Date Chinedu Gordillo PA [address] [place] [phone] PCP - General PHYSICIAN MILLINER HELPER 02/26/19
--- OUTSIDE RECORDS SUMMARY | 2025-02-10 13:39 | XMS_ITS | Patient Health Record ---
Author Organization [facility] Address [address] [place] [address] Care Team Providers Care Superintendent Plant Name Role Phone Dr. Keo Vargas Primary Care Provider [phone] Dr. Hortencia Tolbert Unavailable [phone] Bull Kapoor Unavailable [phone] Hortencia Araiza Unavailable [phone] Migration, Provider Unavailable Unavailable Results Component Value Reference Range Notes Urinalysis Reviewed date:10/06/2024 08:34:56 AM Interpretation: Performing Lab: Notes/Report: Urine-Color yellow Specific Daggett 1.020 pH 6.0 Glucose neg Urine Protein trace Occult Blood neg Bilirubin small Urobilinogen,Semi-Qn neg Nitrite, Urine neg Ketones trace Leucocyte Esterase mod Comprehensive Metabolic Pane l Reviewed date:03/15/2024 12:00:00 [...] Total 6.6 g/dL Sodium Lvl 139 mmol/L Follicle Stimulating Hormone Level Reviewed date:03/15/2024 12:00:00 AM Interpretation: Performing Lab: Notes/Report: FSH 20.5 mIU/mL Thyroid Stimulating Hormone Reviewed date:03/15/2024 12:00:00 AM Interpretation: Performing Lab: Notes/Report: TSH 1.03 mcIU/mL RAVINDER by IFA Reflexive Profile -[facility] Reviewed date:05/23/2024 12:00:00 AM Interpretation: Performing Lab: Notes/Report: RAVINDER IFA Rflx See Below Chromatin {Nucleosomal} Anti body-[facility] Reviewed date:05/23/2024 12:00:00 AM Interpretation: Performing Lab: Notes/Report: Chromatin Ab See Below Cyclic Citrullinated Peptide Ab, IgG-[facility] Reviewed date:05/23/2024 12:00:00 AM Interpretation: Performing Lab: Notes/Report: Cyclic Citrullinated Peptide (CCP) See Below Erythrocyte Sedimentation Ra te Reviewed date:05/23/2024 12:00:00 AM Interpretation: Performing Lab: Notes/Report: ESR, Westergren 34 mm/hr Uric Acid Reviewed date:05/23/2024 12:00:00 AM Interpretation: Performing Lab: Notes/Report: Uric Acid 4.1 mg/dL Beta Human Chorionic Gonadot ropin Quantitative Reviewed date:08/20/2024 12:00:00 AM Interpretation: Performing Lab: Notes/Report: HCG, Beta Quantitative <0.6 mIU/mL Comprehensive Metabolic Pane l Reviewed date:08/20/2024 12:00:00 [...] Total 7.6 g/dL Sodium Lvl 137 mmol/L Magnesium Reviewed date:08/20/2024 12:00:00 AM Interpretation: Performing Lab: Notes/Report: Magnesium Lvl 1.9 mg/dL Rflx Lyme Modified 2-Tier Te sting, 2nd Tier Reviewed date:05/04/2024 12:00:00 AM Interpretation: Performing Lab: Notes/Report: Rflx Lyme Modified 2-Tier Testing, 2nd Tier See Below HCG Qualitative Serum Reviewed date:08/20/2024 12:00:00 AM Interpretation: Performing Lab: Notes/Report: HCG Serum Qual Negative CBC w/ Diff Reviewed date:08/20/2024 12:00:00 AM Interpretation: Performing Lab: Notes/Report: Basophil Auto 0.7 % Eosinophil Auto 0.5 % Hct 43.0 % Hgb 14.8 g/dL Lymph Absolute 1.6 x10*3/mcL Lymph Auto 24.0 % MCH 29.9 pg MCHC 34.3 g/dL MCV 87.1 fL Dewey Absolute 0.5 x10*3/mcL Dewey Auto 7.6 % MPV 11.0 fL Neutro Absolute 4.6 x10*3/mcL Neutro Auto 67.2 % Platelets 219 K/mcL RBC 4.94 x10*6/mcL RDW 12.3 % WBC 6.8 K/mcL Ribosomal P Protein Antibody -[facility] Reviewed date:08/18/2024 12:00:00 AM Interpretation: Performing Lab: Notes/Report: Ribosomal P Ab See Below CHARI-1 Antibody-[facility] Reviewed date:08/18/2024 12:00:00 AM Interpretation: Performing Lab: Notes/Report: CHARI-1 Ab See Below Centromere Antibody, IgG-[facility] P Reviewed date:08/18/2024 12:00:00 AM Interpretation: Performing Lab: Notes/Report: Centromere IgG See Below SSA and SSB Abs, IgG-[facility] Reviewed date:08/18/2024 12:00:00 AM Interpretation: Performing Lab: Notes/Report: SSA and SSB IgG See Below Buchanan {DAO) Ab, IgG-[facility] Reviewed date:08/18/2024 12:00:00 AM Interpretation: Performing Lab: Notes/Report: Buchanan IgG See Below SM/RECORD CHANGER Antibody-[facility] Reviewed date:08/18/2024 12:00:00 AM Interpretation: Performing Lab: Notes/Report: SM/RECORD CHANGER See Below Scleroderma {Scl-70) {DAO) A b, [...] Performing Lab: Notes/Report: RAVINDER Scrn See Below Rheumatoid Factor Reviewed date:05/23/2024 12:00:00 AM Interpretation: Performing Lab: Notes/Report: RHEUMATOID FACTOR <10.0 IntlUnit/mL Creatine Kinase Reviewed date:05/23/2024 12:00:00 AM Interpretation: Performing Lab: Notes/Report: CK 45 unit/L C-Reactive Protein Reviewed date:05/23/2024 12:00:00 AM Interpretation: Performing Lab: Notes/Report: CRP 0.1 mg/dL Rflx Lyme Modified 2-Tier Te sting, 2nd [...] pg MCHC 34.6 g/dL MCV 86.3 fL Dewey Absolute 0.5 x10*3/mcL Dewey Auto 7.5 % MPV 11.0 fL Neutro Absolute 4.0 x10*3/mcL Neutro Auto 65.2 % Platelets 207 K/mcL RBC 4.53 x10*6/mcL RDW 13.1 % WBC 6.2 K/mcL IGF 1-[facility] Reviewed date:03/20/2024 12:00:00 AM Interpretation: Performing Lab: Notes/Report: IGF-1 See Below Urine Culture Reviewed date:03/14/2024 12:00:00 [...] UA Urobilinogen Normal UA WBC <1 /HPF Prolactin Reviewed date:03/15/2024 12:00:00 AM Interpretation: Performing Lab: Notes/Report: Prolactin 13.74 ng/mL Luteinizing Hormone Reviewed date:03/15/2024 12:00:00 AM Interpretation: Performing Lab: Notes/Report: LH 67.9 mIU/mL IH Urinalysis Reviewed date:03/12/2024 12:00:00 AM Interpretation: Performing Lab: Notes/Report: Bilirubin Moderate Blood Negative Glucose Negative Ketone Trace Leukcoytes Negative Nitrite Negative pH 5.0 Protein Trace Specific Daggett 1.010 Urobilinogen 0.2 IGF 1-[facility] Reviewed date:03/15/2024 12:00:00 AM Interpretation: Performing Lab: Notes/Report: IGF-1 See Below Cortisol Reviewed date:03/15/2024 12:00:00 AM Interpretation: Performing Lab: Notes/Report: Cortisol 9.4 mcg/dL CBC w/ Diff Reviewed date:03/15/2024 12:00:00 AM Interpretation: Performing Lab: Notes/Report: Basophil Auto 0.3 % Eos Absolute 0.1 x10*3/mcL Eosinophil Auto 1.1 % Hct 38.9 % Hgb 13.1 g/dL Lymph Absolute 1.8 x10*3/mcL Lymph Auto 27.3 % MCH 29.1 pg MCHC 33.7 g/dL MCV 86.4 fL Dewey Absolute 0.5 x10*3/mcL Dewey Auto 7.5 % MPV 10.6 fL Neutro Absolute 4.2 x10*3/mcL Neutro Auto 63.8 % Platelets 217 K/mcL RBC 4.50 x10*6/mcL RDW 13.4 % WBC 6.6 K/mcL Adrenocorticotropic Hormone [ACTH]-[facility] Reviewed date:03/15/2024 12:00:00 AM Interpretation: Performing Lab: Notes/Report: Adrenocort See Below Reason For Referral Reason PT for low back pain Diagnosis 1 Low back pain, unspe cified back pain laterality, unspecified chronicity, unspecified whether sciatica present (M54.50) Referral Organization [facility] Referring Provider First Name Dr. Crowley [...] Active oral; Duration: 0 *Pick strength-form from [employer] for eRX* 08/21/2024 Active predniSONE 20 MG [...] Problem Viral infection of the digestive tract (627347010) Viral intestinal infection, unspecified (A08.4) 08/26/20 Active confirmed Problem Lyme disease (64324912) Lyme disease, unspecified (A69.20) 04/21/20 24 Active confirmed Problem Herpes zoster without complication (683518017) Zoster without complications (B02.9) 02/17/20 24 Active confirmed Problem Viral infection (19668185) Viral infection, unspecified (B34.9) 05/30/20 23 Active confirmed Problem Anxiety disorder (476317431) Anxiety disorder, unspecified (F41.9) 06/10/20 24 Active confirmed Problem Migraine without aura, not refractory (disorder) (672565769) Migraine, unspecified, not intractable, without status migrainosus (G43.909) 06/10/20 24 Active confirmed Problem Insomnia (525253973) Insomnia, unspecified (G47.00) 07/17/20 24 Active confirmed Problem Acute atopic conjunctivitis (83756044) Acute atopic conjunctivitis, unspecified eye (H10.10) 08/21/20 24 Active confirmed Problem Acute sinusitis (63261978) Acute sinusitis, unspecified (J01.90) 01/02/20 24 Active confirmed Problem Acute upper respiratory infection (18020417) Acute upper respiratory infection, unspecified (J06.9) 10/18/19 24 Active confirmed Problem Acute bronchitis (79724205) Acute bronchitis, unspecified (J20.9) 01/02/20 24 Active confirmed Problem Allergic rhinitis (24770461) Allergic rhinitis, unspecified (J30.9) 08/21/20 24 Active confirmed Problem Stomatitis (70588217) Other forms of stomatitis (K12.1) 05/30/20 23 Active confirmed Problem Joint pain (73911168) Pain in unspecified joint (M25.50) 05/20/20 Active confirmed Problem Pain of knee region (finding) (7105827711) Pain in unspecified knee (M25.569) 04/15/20 24 Active confirmed Problem Galactorrhea not associated with childbirth (89822735) Galactorrhea not associated with childbirth (N64.3) 03/12/20 24 Active confirmed Problem Mastodynia (64314074) Mastodynia (N64.4) 08/19/20 24 Active confirmed Problem Tachycardia (8106241) Tachycardia, unspecified (R00.0) 01/02/20 Active confirmed Problem Palpitations (73659318) Palpitations (R00.2) 01/02/20 Active confirmed Problem Elevated blood pressure reading without diagnosis of hypertension (757394384) Elevated blood-pressure reading, without diagnosis of hypertension (R03.0) 07/17/20 Active confirmed Problem Dyspnea (689654310) Other forms of dyspnea (R06.09) 01/06/20 24 Active confirmed Problem Chest pain (43900465) Chest pain, unspecified (R07.9) 01/06/20 24 Active confirmed Problem Epigastric pain (22902009) Epigastric pain (R10.13) 02/03/20 Active confirmed Problem Pelvic and perineal pain (997338821) Pelvic and perineal pain (R10.2) 03/12/20 24 Active confirmed Problem Abdominal Tenderness (00995698) Abdominal tenderness, unspecified site (R10.819) 02/06/20 Active confirmed Problem Flatulence, eructation and gas pain (724088468) Abdominal distension (gaseous) (R14.0) 03/12/20 Active confirmed Problem Diarrhea (01369074) Diarrhea, unspecified (R19.7) 02/03/20 Active confirmed Problem Eruption of skin (539060986) Rash and other nonspecific skin eruption (R21) 05/20/20 24 Active confirmed Problem Retention of urine (357576552) Retention of urine, unspecified (R33.9) 03/27/20 Active confirmed Problem Dizziness and giddiness (768443728) Dizziness and giddiness (R42) 08/19/20 Active confirmed Problem Fatigue (50036338) Other fatigue (R53.83) 05/20/20 Active confirmed Problem Generalized hyperhidrosis (586035908) Generalized hyperhidrosis (R61) 02/03/20 Active confirmed Problem Nutritional status: food and fluid intake (229235199) Other symptoms and signs concerning food and fluid intake (R63.8) 07/30/20 Active confirmed Problem Erythrocyte sedimentation rate raised (623115184) Elevated erythrocyte sedimentation rate (R70.0) 05/28/20 Active confirmed Problem Laboratory test result abnormal (480187968) Abnormal levels of other serum enzymes (R74.8) 02/06/20 Active confirmed Problem Abnormal findings on microbiological examination of urine (572196847) Unspecified abnormal findings in urine (R82.90) 02/03/20 Active confirmed Problem Histopathology finding (817656083) Unspecified abnormal finding in specimens from other organs, systems and tissues (R89.9) 03/16/20 Active confirmed Problem Bite of nonvenomous arthropod (995087592) Bitten or stung by nonvenomous insect and other nonvenomous arthropods, initial encounter (W57.XXXA) 04/15/20 Active confirmed Problem Family history of ischemic heart disease (605440509) Family history of ischemic heart disease and other diseases of the circulatory system (Z82.49) 01/06/20 Active confirmed Problem History of respiratory disease (687794227) Personal history of other diseases of the respiratory system (Z87.09) 08/21/20 Active confirmed Problem Obsessive-compulsi ve disorder (330577566) Obsessive-compul sive disorder, unspecified (F42.9) 07/17/20 Active confirmed Problem Suspected disease caused by Severe acute respiratory coronavirus 2 (situation) (085731098) Encounter for screening for COVID-19 (Z11.52) 08/26/20 Active confirmed Problem Cough (finding) (14170938) Cough, unspecified (R05.9) 01/03/20 Active confirmed acute Vital Signs Heart Rate [...] 10/06/2024 Encounters Encounter Location Date Provider Diagnosis [address] [address] 02/17/2024 Dr. Hortencia Tolbert Zoster without complications B02.[address] [address] 03/12/2024 Dr. Hortencia Tolbert Generalized hyperhidrosis R61 ; Galactorrhea not associated with childbirth N64.3 ; Abdominal distension (gaseous) R14.0 ; Pelvic and perineal pain R10.2 and Unspecified abnormal findings in urine R82.[address] [address] 03/16/2024 Provider Migration Unspecified abnormal finding in specimens from other organs, systems and tissues R89.[address] [address] 03/27/2024 Provider Migration Pelvic and perineal pain R10.2 and Retention of urine, unspecified R33.[address] [address] 04/15/2024 Dr. Hortencia Tolbert Pain in unspecified knee M25.569 ; Bitten or stung by nonvenomous insect and other nonvenomous arthropods, initial encounter W57.XXXA and Diarrhea, unspecified R19.[address] [address] 04/21/2024 Provider Migration Lyme disease, unspecified A69.20 and Bitten or stung by nonvenomous insect and other nonvenomous arthropods, initial encounter W57.XXXA [address] [address] 04/22/2024 Provider Migration Bitten or stung by nonvenomous insect and other nonvenomous arthropods, initial encounter W57.XXXA [address] [address] 05/06/2024 Provider Migration Bitten or stung by nonvenomous insect and other nonvenomous arthropods, initial encounter W57.XXXA [address] [address] 05/20/2024 Provider Migration Other fatigue R53.83 ; Rash and other nonspecific skin eruption R21 and Pain in unspecified joint M25.[address] [address] 05/28/2024 Provider Migration Other fatigue R53.83 ; Elevated erythrocyte sedimentation rate R70.0 and Generalized hyperhidrosis R61 [address] [address] 06/10/2024 Bull Kapoor Anxiety disorder, unspecified F41.9 and Migraine, unspecified, not intractable, without status migrainosus G43.[address] [address] 06/25/2024 Provider Migration Migraine, unspecified, not intractable, without status migrainosus G43.[address] [address] 07/17/2024 Dr. Hortencia Tolbert Insomnia, unspecifie d G47.00 ; Elevated blood-pressure reading, without diagnosis of hypertension R03.0 ; Tachycardia, unspecified R00.0 ; Anxiety disorder, unspecified F41.9 and Obsessive-compulsive disorder, unspecified F42.[address] [address] 07/30/2024 Dr. Hortencia Tolbert Anxiety disorder, unspecified F41.9 ; Obsessive-compulsive disorder, unspecified F42.9 ; Insomnia, unspecified G47.00 ; Palpitations R00.2 and Other symptoms and signs concerning food and fluid intake R63.[address] [address] 08/12/2024 Provider Migration Pain in unspecified joint M25.50 ; Unspecified abnormal finding in specimens from other organs, systems and tissues R89.9 and Bitten or stung by nonvenomous insect and other nonvenomous arthropods, initial encounter W57.XXXA [address] [address] 08/19/2024 Dr. Hortencia Tolbert Dizziness and giddiness R42 ; Mastodynia N64.4 and Other fatigue R53.[address] [address] 08/21/2024 Dr. Hortencia Tolbert Acute atopic conjunctivitis, unspecified eye H10.10 ; Allergic rhinitis, unspecified J30.9 ; Cough, unspecified R05.9 and Personal history of other diseases of the respiratory system Z87.[address] [address] 10/06/2024 Dr. Keo Vargas Low back pain, unspecified back pain laterality, unspecified chronicity, unspecified whether sciatica present M54.[address] [address] 09/05/2024 Provider Migration [address] [address] 09/06/2024 Provider Migration [address] [address] 10/08/2024 Hortencia Araiza Lumbar back pain M54.[address] [address] 10/08/2024 Dr. Keo Vargas [address] [address] 10/09/2024 Dr. Keo Vargas Lumbar back pain M54.[address] [address] 01/25/2025 Dr. Keo Vargas Assessments Encounter Date Diagnosis (ICD Code) Assessment Notes Treatment Notes Treatment Clinical Notes Section Notes 02/17/2024 Zoster without complications (ICD-10 - B02.9) [...] 10/06/2024 Next Appt Details Provider Name:Dr. Hortencia sparks, 05/19/2025 01:00:00 PM, [address] [facility], [place], [address], [phone] Insurance Providers Payer Name Payer Address Payer Phone Subscriber Number Group Number Insured Name Patient Relationship to Insured Coverage Start Date Coverage End Date [employer] [facility] [address] [place] [address] [id number] Amy Yarbrough Self - patient is the insured Medical (General) History Surgical History Surgery Date(Month/Year) cholecystectomy ,notes : 2013
== END 2025-02-10 13:27 | disposition home or self-care (01) ==
LOC: CHSIMG 13:28
PROVIDERS: PCP Physician Assistant; Visit Provider Physician Assistant
DX: Z34.90 Encounter for supervision of normal pregnancy, unspecified, unspecified trimester (principal); Z3A.01 Less than 8 weeks gestation of pregnancy
CPT/HCPCS: 76801; 76817